=== PATIENT | male | born 1935 | race Caucasian/White ===

== ENCOUNTER 2020-04-09 13:40 | Outpatient (CLI) | payer MEDICARE, SELFPAY ==
[2020-04-09 14:42] LABS: Basophils Percent Auto 0.3 % (0.2-1.2); Eosinophils Absolute Auto 0.1 K/mm3 (0-0.3); Eosinophils Percent Auto 0.8 % (0-4.4); Hematocrit 45.9 % (42.0-52.0); Hemoglobin 15.7 g/dL (14.0-18.0); Immature Granulocyte Absolute 0.06 K/mm3 (0.00-0.031); Immature Granulocyte Percent A 0.6 % (0-0.5); Lymphocytes Absolute Auto 1.84 K/mm3 (0.9-3.2); Lymphocytes Percent Auto 18.9 % (18.3-44.2); Mean Corpuscular HGB Conc 34.2 g/dl (32-36); Mean Corpuscular Volume 93.7 fl (80-100); Mean Platelet Volume 10.8 fl (7.4-10.4); Monocytes Absolute Auto 0.9 K/mm3 (0.1-0.6); Neutrophils Absolute Auto 6.8 K/mm3 (1.3-6.7); Neutrophils Percent Auto 70.4 % (45.5-73.1); Platelet Count Result 246 k/mm3 (150-375); Red Cell Distribution Width 14.1 % (11.5-14.5); White Blood Count 9.7 K/mm3 (4.5-10.0)
[2020-04-09 14:52] LABS: Hemoglobin A1C 5.8 % (<5.7)
[2020-04-09 14:56] LABS: Blood Urea Nitrogen 30 mg/dL (9-20); Calcium 10.1 mg/dL (8.4-10.2); Carbon Dioxide 27 mmol/L (22-30); Chloride 103 mmol/L (98-107); Cholesterol 137 mg/dL (0-200); Estimated Glomerular Filt Rate 39; Glucose 122 mg/dL (75-110); HDL Direct 31 mg/dL; Potassium 4.1 mmol/L (3.4-5.0); Sodium 140 mmol/L (137-145); Triglycerides 132 mg/dL (<150); Uric Acid 6.2 mg/dL (3.5-8.5)
[2020-04-09 15:40] LABS: LDL Cholesterol Direct 81 mg/dL
[2020-04-13 08:52] LABS: Vitamin D 1,25 (OH)2 Total 32 pg/mL (18-72); Vitamin D2 1,25 (OH)2 <8 pg/mL; Vitamin D3 1,25 (OH)2 32 pg/mL
== END 2020-04-09 13:41 | disposition home or self-care (01) ==
PROVIDERS: PCP Internal Medicine; Visit Provider Internal Medicine
DX: R73.09 Other abnormal glucose (principal); E78.2 Mixed hyperlipidemia; I10 Essential (primary) hypertension; E55.9 Vitamin D deficiency, unspecified
CPT/HCPCS: 36415; 80048; 80061; 82652; 83036; 84550; 85025

== ENCOUNTER 2020-05-05 07:42 | Outpatient (CLI) | payer MEDICARE, SELFPAY | END 2020-05-05 07:43 | disposition home or self-care (01) | LOC: ANHAUDIO 07:44 | PROVIDERS: PCP Internal Medicine; Visit Provider Internal Medicine | DX: H90.3 Sensorineural hearing loss, bilateral (principal) | CPT/HCPCS: 92557; 92567 ==

== ENCOUNTER 2020-05-11 07:49 | Outpatient (RCR) | payer SELFPAY | END 2020-05-11 23:59 | disposition home or self-care (01) | LOC: ANHAUDIO 07:49 | PROVIDERS: PCP Internal Medicine; Visit Provider Internal Medicine | DX: Z46.1 Encounter for fitting and adjustment of hearing aid (principal) | CPT/HCPCS: V5261 ==

== ENCOUNTER 2020-07-08 07:59 | Outpatient (CLI) | payer MEDICARE, SELFPAY ==
--- NOTE | ~2020-07-08 | US_ITS ---
EXAMINATION: US art doppler w charles CENTENO DATE: 07/08/2020 09:03 INDICATION: Peripheral vascular disease with hypertension, hypercholesterolemia, prior smoking and pr ior stroke. TECHNIQUE: Segmental pressures and plethysmographic and Doppler waveforms of the brachial and lower e xtremity arteries were obtained. COMPARISON: None. FINDINGS: Right and left brachial artery pressures of 121 mm Hg and 120 mm Hg, respectively, are concordant (no rmal difference <= 30 mmHg). The right high-thigh pressure index is 1.43 (normal > 1.2). The left hig h thigh pressure index was unable to be obtained due to inability to occlude the vessels throughout t he left lower limb. The right ankle-brachial index (CLAIR) was unable to be obtained due to inability to occlude the vessel s at the ankle (normal >= 0.9-1). The right great toe-brachial index (TBI) is 1.07 (normal >= 0.6-0.8 ). Arterial waveforms are biphasic at the right dorsalis pedis artery and triphasic at the remaining arteries in the right lower limb with brisk systolic upstrokes throughout. The left CLAIR was also unable to be obtained due to inability to occlude the vessels. The left TBI is 0.73. Arterial waveforms are monophasic at the left dorsalis pedis artery and triphasic at the remain ing arteries with brisk systolic upstrokes throughout. IMPRESSION: 1. Normal TBIs bilaterally. No significant arterial occlusive disease. Reviewed, dictated and finalized at location A.
== END 2020-07-08 08:00 | disposition home or self-care (01) ==
PROVIDERS: PCP Internal Medicine; Visit Provider Internal Medicine
DX: I73.9 Peripheral vascular disease, unspecified (principal)
CPT/HCPCS: 93923

== ENCOUNTER 2020-07-31 10:22 | Inpatient (IN) | payer MEDICARE, SELFPAY ==
[2020-07-31] VITALS (10 sets, daily range): BP systolic 122–159; BP diastolic 60–88; PULSE 82–109; RESP 12–23; TEMP 36.1–36.6; O2SAT 89–100; BMI 32.3
--- NOTE | ~2020-07-31 | MR_ITS ---
EXAMINATION: MR brain/brain stem wo con DATE: 07/31/2020 15:05 INDICATION: Speech deficit. Stroke. TECHNIQUE: Magnetic resonance imaging (MRI) of the brain and brainstem was performed without intraven ous contrast. Sequences included sagittal and axial T1-weighted FSE, axial diffusion-weighted FS EPI, axial T2*-weighted GRE, axial T2-weighted FLAIR Propeller, and axial T2-weighted Propeller. Apparent diffusion coefficient (ADC) maps were created. COMPARISON: Head CT 07/31/2020, brain MRI 11/03/2019 FINDINGS: There is a small acute infarct in left frontoparietal region. There is no intracranial hemo rrhage or abnormal mass lesion. There are small old infarcts in the cerebellum bilaterally. There is a prominent perivascular space in the right lentiform nucleus. There is a small old infarct in left f rontoparietal region. There are scattered areas of nonspecific increased T2-weighted signal intensity in the cerebral white matter. The ventricles are normal in size. There is mild mucosal thickening in the paranasal sinuses. There are likely changes of ocular lens replacement surgeries. There is anter oposterior elongation of the ocular globes. The mastoid air cells are normal. IMPRESSION: 1. Small acute infarct in left frontoparietal region. 2. Old infarcts in the cerebellum and left frontoparietal region. 3. Mild nonspecific cerebral white matter disease, which likely represents chronic small vessel ische foster disease. Reviewed, dictated and finalized at location A. IMPRESSION: 1. Small acute infarct in left frontoparietal region. 2. Old infarcts in the cerebellum and left frontoparietal region. 3. Mild nonspecific cerebral white matter disease, which likely represents licensed clinical psychologist luis manuel small vessel ischemic disease.
--- NOTE | ~2020-07-31 | US_ITS ---
EXAMINATION: US carotid duplex BI DATE: 07/31/2020 14:05 INDICATION: Right facial weakness. Slurred speech. TECHNIQUE: Grayscale, color Doppler, and pulsed Doppler images of the cervical carotid arteries were obtained. The degree of vessel stenosis is placed in one of the following categories: normal, <50%, 5 0-69%, >=70% but less than near-occlusion, near-occlusion, or total occlusion. Note that percent sten osis relative to normal distal artery lumen diameter is indirectly measured from velocity measurement s as described by Sukhdev, et al. Radiology 2003; 229:340-346. COMPARISON: Ultrasound 11/03/2019 FINDINGS: RIGHT: The right common carotid artery (CCA) peak systolic velocity (PSV) is 64 cm/s. The right internal car otid artery (ICA) PSV is 113 cm/s. The right ICA end-diastolic velocity (EDV) is 21 cm/s. The right I CA/CCA PSV ratio is 1.8. Grayscale and color Doppler images yield an estimate of <50% diameter reduct ion from plaque in the ICA. There is antegrade flow in the right vertebral artery. LEFT: The left CCA PSV is 68 cm/s. The left ICA PSV is 65 cm/s. The left ICA EDV is 16 cm/s. The left ICA/C CA PSV ratio is 0.9. Grayscale and color Doppler images yield an estimate of <50% diameter reduction from plaque in the ICA. There is antegrade flow in the left vertebral artery. IMPRESSION: 1. <50% stenosis in the right internal carotid artery. 2. <50% stenosis in the left internal carotid artery. Reviewed, dictated and finalized at location A.
--- NOTE | ~2020-07-31 | CT_ITS ---
EXAMINATION: CT brain wo con DATE: 07/31/2020 11:19 INDICATION: Slurred speech TECHNIQUE: Computed tomography (CT) of the head was performed without intravenous contrast. The mA wa s adjusted according to patient size. Iterative reconstruction technique was employed. Exam dose: 60 5.33 mGy-cm total exam DLP. COMPARISON: 11/03/2019 MRI brain/brainstem 11/02/2019 CT brain FINDINGS: Calcified cerebral atherosclerosis including right vertebral basilar and both internal olivas tid arteries. There is a small infarct high over the left parietal convexity, likely a chronic small watershed infa rct. This is a new finding since 11/02/2019. There is nonspecific diminished attenuation of the cerebral white matter, likely due to chronic small vessel ischemic changes. Chronic right basal ganglia lacunar infarct. Old left cerebellar infarct. No intracranial mass lesion or hemorrhage, midline shift or mass effect. No subdural or epidural yamileth kasandra. There is moderate cerebral and cerebellar atrophy. No orbital mass lesion. The mastoid air cells and included paranasal sinuses are normally developed a nd aerated. No fracture or bone destruction of the cranial vault. IMPRESSION: Cerebral atherosclerosis and chronic small vessel ischemic changes of the cerebral white matter Right chronic basal ganglia lacunar infarct Small chronic infarct high over the left parietal convexity, new since 11/02/2019 Old left cerebellar infarct Reviewed, dictated and finalized at Location A. Reviewed, dictated and finalized at location A. IMPRESSION: Cerebral atherosclerosis and chronic small vessel ischemic changes of the cerebral white matter Right chronic basal ganglia lacunar infarct Small chronic infarct high over the left parietal convexity, new since 11/02/20 19 Old left cerebellar infarct
--- NOTE | 2020-07-31 10:37 | ECG_ITS ---
Measurements Intervals [place] Rate: 95 P: [place]: 0 QRS: -42 QRSD: 82 T: 6 QT: 314 QTc: 396 Interpretive Statements ATRIAL FIBRILLATION CANNOT RULE OUT SEPTAL INFARCT, AGE INDETERMINATE INFERIOR INFARCT, AGE INDETERMINATE BASELINE ARTIFACT- I, II, III, AVR, AVL, AVF ABNORMAL ECG Electronically Signed On 07-31-2020 14:07:44 CDT by Rl Lowry D.O.
[2020-07-31 10:48] LABS: Basophils Percent Auto 0.3 % (0.2-1.2); Eosinophils Absolute Auto 0.1 K/mm3 (0-0.3); Eosinophils Percent Auto 1.3 % (0-4.4); Hemoglobin 15.2 g/dL (14.0-18.0); Immature Granulocyte Absolute 0.05 K/mm3 (0.00-0.031); Immature Granulocyte Percent A 0.5 % (0-0.5); Lymphocytes Absolute Auto 2.48 K/mm3 (0.9-3.2); Lymphocytes Percent Auto 25.2 % (18.3-44.2); Mean Corpuscular HGB Conc 34.5 g/dl (32-36); Mean Corpuscular Hemoglobin 33.8 pg (26-34); Mean Corpuscular Volume 97.8 fl (80-100); Mean Platelet Volume 10.1 fl (7.4-10.4); Monocytes Absolute Auto 1.3 K/mm3 (0.1-0.6); Monocytes Percent Auto 13.3 % (2.6-8.5); Neutrophils Absolute Auto 5.9 K/mm3 (1.3-6.7); Neutrophils Percent Auto 59.4 % (45.5-73.1); Platelet Count Result 260 k/mm3 (150-375); Red Cell Distribution Width 13.5 % (11.5-14.5); White Blood Count 9.9 K/mm3 (4.5-10.0)
--- NOTE | 2020-07-31 10:48 | ED.NEUROSD ---
HPI - Neuro Symptoms/Deficit General Chief Complaint: Suspected CVA Stated Complaint: r/o Stroke Time Seen by Provider: 07/31/20 10:29 Source: patient History of Present Illness HPI Narrative: Patient is a 84 y/o male complaining speech difficulty and right facial droop since approximately 9:30 AM. He states that he noticed he could not talk at about 9:30 AM. His symptoms are improving spontaneously. He states that he can talk currently, but still feels right face is swollen. He states that he had history of previous stroke. He is currently on Pradaxa for A fib. He took his last dose this morning. Related Data Home Medications Medication Instructions Recorded Confirmed cholecalciferol (vitamin D3) 125 125 mcg PO DAILY 07/21/20 07/21/20 mcg (5,000 unit) capsule atorvastatin 10 mg PO HS 07/31/20 07/31/20 brinzolamide-brimonidine 1 drp OPHTHALMIC (EYE) BID 07/31/20 07/31/20 [Simbrinza] colchicine 0.3 mg PO EVERY OTHER DAY 07/31/20 07/31/20 krill oil 500 mg PO DAILY 07/31/20 07/31/20 spironolactone 50 mg PO HS 07/31/20 07/31/20 Allergies Allergy/AdvReac Type Severity Reaction Status Date / Time Penicillins Allergy Severe Anaphylaxis Verified 07/31/20 10:43 Review of Systems Constitutional: Constitutional: Denies chills, Denies fever(s), Denies headache(s) and Denies weakness Eyes: Eyes: Denies blurry vision ENT: Denies headache(s) and Denies neck pain Cardiovascular: Cardiovascular: Denies chest pain and Denies dyspnea Respiratory: Respiratory: Denies cough and Denies dyspnea Gastrointestinal: Gastrointestinal: Denies abdominal pain, Denies diarrhea, Denies nausea and Denies vomiting Genitourinary: Genitourinary: Denies hematuria and Denies dysuria Musculoskeletal: Musculoskeletal: Denies back pain and Denies neck pain Neurologic: Reports Abnormal speech present, Denies headache(s) and Denies weakness [facility] Past Medical History Medical History Abnormal ankle brachial index (CLAIR) Afib Chronic rate-controlled atrial fibrillation on Pradaxa for chronic anticoagulation. Arthritis Asthma BMI 31.0-31.9,adult BMI 33.0-33.9,adult BPH (benign prostatic hyperplasia) CHF (congestive heart failure) Cholecystitis CKD (chronic kidney disease) COPD (chronic obstructive pulmonary disease) Diastolic dysfunction Diverticulitis Diverticulitis with perforation and abscess in 2007 that was treated with percutaneous abscess drainage and antibiotics. No history of colon resection. Elevated glucose Encounter for Medicare annual wellness exam Encounter for routine adult health examination without abnormal findings GI bleed Glaucoma Gout Hearing loss HLD (hyperlipidemia) HTN (hypertension) Hyperlipidemia MVP (mitral valve prolapse) On skilled nursing drug therapy Peripheral neuropathy Pneumonia Right knee meniscal tear Vitamin D deficiency Surgical History Surgical History H/O bilateral cataract extraction History of cardiac catheterization Without intervention. Hx of appendectomy Laparoscopic appendectomy in 2009. Hx of tonsillectomy Status post laparoscopic cholecystectomy 10/30/[address] Saravia Family History Family History Mother Family history of cardiovascular disease Family history of heart disease in male family member before age 55 Father Cerebrovascular accident Family history of Alzheimer's disease Social History Social History Social History: Patient is a full code. He does live with his . Smoking packs per day: 1 Smoking cigarettes per day: 20.0 Years smoked: 10 Smoking pack-years: 10.00 Smoking status: Former smoker Tobacco type: cigarettes Second hand tobacco smoke exposure: Yes Smoking end date: 11/12/05 Alcohol intake: never Substance use: never Subst
[2020-07-31 11:00] LABS: Alanine Aminotransferase 17 U/L (4-50); Albumin Level 4.3 g/dL (3.5-5.1); Alkaline Phosphatase 66 U/L (38-126); Anion Gap 9 mmol/L (8-16); Aspartate Amino Transferase 23 U/L (17-59); Bilirubin,Total 0.9 mg/dL (0.2-1.3); Blood Urea Nitrogen 22 mg/dL (9-20); Calcium 9.8 mg/dL (8.4-10.2); Carbon Dioxide 27 mmol/L (22-30); Chloride 102 mmol/L (98-107); Estimated CRCL calculation 34 ml/min; Estimated Glomerular Filt Rate 41; Glucose 110 mg/dL (75-110); Sodium 138 mmol/L (137-145)
[2020-07-31 11:01] LABS: INR 1.4; Prothrombin Time 16.4 Seconds (11.1-14.7)
--- NOTE | 2020-07-31 11:13 | PC.NURSE ---
Pt taken to CT scan at this time
--- NOTE | 2020-07-31 14:22 | ADMGEN ---
This patient, Gigi Richardson, was admitted to 2 Medical Room 244-. Patient/family oriented to hospital policies and general routines including ID bracelet, bed and alarms, visiting hours, pain management, procedures, bathroom and other care routines, personal items, smoking policy, room service/diet, and visiting hours. Valuables list has been completed. Information on how to activate the Rapid Response Team has been discussed. Patient/Family are encouraged to report perceived risks to care and to ask questions if they do not understand what they are told or what they should do.
--- NOTE | 2020-07-31 16:30 | PM.IMHP ---
H&P: HPI History of Present Illness Date/Time: 07/31/20 16:30 Chief complaint: Stroke symptoms. Narrative: Gigi Richardson is a very pleasant 84-year-old male with history of stroke, chronic atrial fibrillation on long-term anticoagulation with dabigatran, diastolic congestive heart failure, chronic kidney disease, hypertension, and COPD who presented to the emergency department earlier today via private vehicle from home for evaluation of stroke-like symptoms. He was in his usual state health this morning when he woke at approximately 07:00. 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 At approximately 09:30, he noticed that the right side of his tongue and upper jaw area was numb ?like I had Novocain? and when he began to talk to his she noticed that his speech was slurred, garbled, and he was having difficulties with word recall. He has a history of stroke in October 2019, presenting with speech deficits and right-sided weakness, which has nearly resolved except for some mild right lower leg weakness. Just prior to that stroke he was in hospital for acute cholecystitis and had been off of his Pradaxa for several days in anticipation of surgery. His workup was essentially unremarkable including carotid Doppler ultrasound showing less than 50% stenosis bilaterally, and I believe his stroke was attributed to having been off the Pradaxa. Brain MRI today confirms a new, small acute infarct in the left frontoparietal region and also shows evidence of another stroke that was not present on MRI in October 2019, but he does not recall having any neurologic symptoms since that time, prior to today. With further questioning, he states 100% compliance with his dabigatran and is pretty consistent taking it every 12 hours. He has not missed any doses to his knowledge. At the time my evaluation he is eating dinner, is having conversations with his , and seems to be near his baseline. The numb like sensation in his tongue and mouth seemed to be improving as well as his speech. He denies vertigo, auditory and visual changes, and focal weakness. Review of Systems Review of Systems: Narrative: Twelve systems were reviewed with pertinent positives and negatives as per HPI. No fever, chills, or sweats. No recent cold or flu symptoms. He denies nausea, vomiting, and diarrhea. He ambulates with a cane, mainly due to right knee pain (he sees Dr. Marie almost every 6 months for cortisone injections) and mild weakness from previous stroke. Recently treated for gout. Except as documented, all other systems were reviewed and are negative. [facility] Past Medical History Medical History (Updated 07/31/20 @ 19:32 by Noa Carl PA-C) Arthritis Benign prostatic hyperplasia Chronic kidney disease, stage 3 Baseline creatinine is around 1.60. Chronic obstructive pulmonary disease PFTs in June 2011 demonstrated mild obstructive ventilatory defect with acute bronchodilator response. Current use of half-way anticoagulation On dabigatran for stroke prophylaxis. Had previously been on warfarin. Diastolic dysfunction Echocardiogram in February 2019 demonstrated mild enlargement of the left ventricular cavity, ejection fraction of 55%, diastolic dysfunction, sigmoid hypertrophy of the septum, severe enlargement of the left atrium and mild enlargement of the right atrium, and [id number] mitral valve regurgitation. Diverticulitis (~2007) Diverticulitis with perforation and abscess treated with percutaneous abscess drainage and antibiotics. 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 Glaucoma Gout Hearing loss Hyperlipidemia Peripheral neuropathy Persistent atrial fibrillation Pneumonia Vitamin D deficiency Surgical History Surgical History (Updated 07/31/20
--- NOTE | 2020-07-31 20:00 | PM.CNCAR ---
Assessment and Plan Assessment and plan (1) Essential hypertension: Code(s): I10 - Essential (primary) hypertension Status: Acute Assessment and Plan: Stable. (2) Diastolic dysfunction: Code(s): I51.89 - Other ill-defined heart diseases Status: Acute Assessment and Plan: Stable. (3) Chronic obstructive pulmonary disease: Code(s): J44.9 - Chronic obstructive pulmonary disease, unspecified Status: Acute (4) Chronic kidney disease, stage 3: Code(s): N18.3 - Chronic kidney disease, stage 3 (moderate) Status: Acute (5) Persistent atrial fibrillation: Code(s): I48.19 - Other persistent atrial fibrillation Status: Acute Assessment and Plan: On Pradax. Rate controlled. (6) Acute cerebrovascular accident: Code(s): I63.9 - Cerebral infarction, unspecified Status: Acute Assessment and Plan: Could be failure of Pradaxa or due to cerebral small vessel ischemic disease. Discussed with patient extensively about further workup and he is agreeable to [facility] on Sunday to determine if failure of Pradaxa if we see left atrial appendage thrombus or spontaneous contrast. However, if we do not, then we do not know definitively if it is a failure of Pradaxa, and may consider starting aspirin EC 81 mg daily. Resume all home cardiac medications. History of Present Illness History of Present Illness Consult date/time: 07/31/20 20:00 Reason for consult: Stroke with atrial fib. 84 yr old man presents to ED for stroke like symptoms. He has a history of stroke where he had aphasia and right leg weakness in October 2019 2 days after having emergent gallbladder surgery when he was off his Pradaxa; chronic atrial fib since he was in his 30's, hypertension, dyslipidemia, diastolic dysfunction, COPD/asthma, CKD stage III. Reports that this morning while at home he noted the side of his mouth was tingling. It lasted several hours and has resolved. MRI brain today showed small acute frontoparietal infarct, old infarct of cerbebellum and left frontoparietal lobes, and small vessel ischemic disease. Carotid duplex is unremarkable. EKG shows atrial fib. He can walk with his cane about 200 feet and limited by fatigue. Denies chest pain, sob, orthopnea, PND, edema, dizziness. Reason For Visit: Stroke symptoms. Review of Systems Review of Systems: All systems reviewed & are unremarkable except as noted in HPI and below Constitutional: Constitutional: Reports as per HPI and Denies chills Cardiovascular: Cardiovascular: Reports as per HPI, Denies chest pain, Denies leg edema and Denies lightheadedness Respiratory: Respiratory: Reports as per HPI and Denies dyspnea Gastrointestinal: Gastrointestinal: Reports as per HPI and Denies abdominal pain Genitourinary: Genitourinary: Reports as per HPI and Denies dysuria Musculoskeletal: Musculoskeletal: Reports as per HPI Neurologic: Reports as per HPI and Denies confusion [facility], [facility] Past Medical History Medical History (Updated 07/31/20 @ 19:32 by Noa Carl PA-C) Arthritis Benign prostatic hyperplasia Chronic kidney disease, stage 3 Baseline creatinine is around 1.60. Chronic obstructive pulmonary disease PFTs in June 2011 demonstrated mild obstructive ventilatory defect with acute bronchodilator response. Current use of intermediate frame tender anticoagulation On dabigatran for stroke prophylaxis. Had previously been on warfarin. Diastolic dysfunction Echocardiogram in February 2019 demonstrated mild enlargement of the left ventricular cavity, ejection fraction of 55%, diastolic dysfunction, sigmoid hypertrophy of the septum, severe enlargement of the left atrium and mild enlargement of the right atrium, and [id number] mitral valve regurgitation. Diverticulitis (~2007) Diverticulitis with perforation and abscess treated with percutaneous abscess drainage and antibiotics. Essential hypertension GI bleed (~
[2020-07-31] MEDS: allopurinoL 100 MG TABLET PO (20:32)
[2020-07-31] MEDS: BRINZOLAMIDE 1% OPHTH SUSP 10 ML 1 DROP EACH EYE (20:33)
[2020-07-31] MEDS: BRIMONIDINE TARTRATE 0.2% OP SOLN 5 ML BTL 1 DROP EACH EYE (20:33)
[2020-07-31] MEDS: ATORVASTATIN 10 MG TABLET PO (20:33)
[2020-07-31] MEDS: CHOLECALCIFEROL 1,000 UNITS TABLET 5000 UNITS PO (20:36)
[2020-07-31] MEDS: SPIRONOLACTONE 50 MG TABLET PO (20:36)
[2020-07-31] MEDS: MONTELUKAST SODIUM 10 MG TABLET PO (20:36)
[2020-08-01] VITALS (9 sets, daily range): BP systolic 126–143; BP diastolic 62–88; PULSE 78–97; RESP 16–18; TEMP 36.3–36.4; O2SAT 96–97
[2020-08-01] MEDS: BRINZOLAMIDE 1% OPHTH SUSP 10 ML 1 DROP EACH EYE ×2 (08:36→20:02)
[2020-08-01] MEDS: BRIMONIDINE TARTRATE 0.2% OP SOLN 5 ML BTL 1 DROP EACH EYE ×2 (08:36→20:01)
[2020-08-01] MEDS: METOPROLOL SUCCINATE EXT REL 25 MG TABCR PO (08:38)
[2020-08-01] MEDS: allopurinoL 100 MG TABLET PO ×2 (08:38→20:01)
[2020-08-01] MEDS: FINASTERIDE 5 MG TABLET PO (08:38)
[2020-08-01] MEDS: PANTOPRAZOLE 40 MG TABLET PO (08:38)
[2020-08-01] MEDS: FUROSEMIDE 20 MG TABLET PO (08:38)
[2020-08-01] MEDS: CHOLECALCIFEROL 1,000 UNITS TABLET 5000 UNITS PO ×2 (08:38→20:01)
[2020-08-01] MEDS: DABIGATRAN ETEXILATE 150 MG CAPSULE PO ×2 (08:38→20:01)
--- NOTE | 2020-08-01 09:13 | PM.PNCARD ---
Progress Note: A&P Assessment and Plan (1) Essential hypertension: Code(s): I10 - Essential (primary) hypertension Status: Acute Assessment and Plan: Stable. (2) Diastolic dysfunction: Code(s): I51.89 - Other ill-defined heart diseases Status: Acute Assessment and Plan: Stable. (3) Chronic obstructive pulmonary disease: Code(s): J44.9 - Chronic obstructive pulmonary disease, unspecified Status: Acute (4) Chronic kidney disease, stage 3: Code(s): N18.3 - Chronic kidney disease, stage 3 (moderate) Status: Acute (5) Persistent atrial fibrillation: Code(s): I48.19 - Other persistent atrial fibrillation Status: Acute Assessment and Plan: Could be failure of Pradaxa or due to cerebral small vessel ischemic disease. Discussed with patient extensively about further workup and he is agreeable to [facility] on Sunday to determine if failure of Pradaxa if we see left atrial appendage thrombus or spontaneous contrast. However, if we do not, then we do not know definitively if it is a failure of Pradaxa, and may consider starting aspirin EC 81 mg daily. Obtain [facility] tomorrow AM. (6) Acute cerebrovascular accident: Code(s): I63.9 - Cerebral infarction, unspecified Status: Acute Subjective Date/time seen: 08/01/20 09:13 Denies any more tingling or numbness in perioral region. No chest pain or sob. Exam Const: General: comfortable and no acute distress Neck: Neck: no JVD Carotids: no bruits Resp: Auscultation: no crackles, no rales, no rhonchi and no wheezes Other: Coarse breath sounds bilaterally Cardio: Rate: regular rate Rhythm: abnormal rhythm Heart sounds: no murmurs Peripheral pulses: dorsalis pedis present GI: GI Palp: Yes abdominal tenderness and Yes Soft to palpation Neuro: General: oriented to person, oriented to place and oriented to time Extrem: Right upper extremity: no edema Left upper extremity: no edema Objective Data Vital Signs Vital Signs: Vital Signs - 24 hr 07/31/20 10:30 07/31/20 10:32 07/31/20 10:36 Temperature 97.6 F Pulse Rate 97 109 H 103 H Respiratory Rate 18 21 H 23 H Blood Pressure 149/83 H 159/83 H 159/83 H Pulse Oximetry 98 90 93 07/31/20 10:46 07/31/20 11:00 07/31/20 11:45 Temperature Pulse Rate 93 89 85 Respiratory Rate 15 15 12 Blood Pressure 128/88 129/76 122/74 Pulse Oximetry 93 89 L 96 07/31/20 13:24 07/31/20 14:30 07/31/20 20:07 Temperature 97.0 F L Pulse Rate 91 82 94 Respiratory Rate 16 20 Blood Pressure 126/81 129/69 Pulse Oximetry 97 98 07/31/20 22:00 08/01/20 00:00 08/01/20 04:00 Temperature 97.9 F Pulse Rate 92 81 78 Respiratory Rate 16 Blood Pressure 152/60 H Pulse Oximetry 100 08/01/20 06:00 Temperature 97.4 F L Pulse Rate 89 Respiratory Rate 18 Blood Pressure 138/62 Pulse Oximetry 97 Intake/Output Intake/Output: Intake & Output 07/29/20 07/30/20 07/31/20 08/01/20 23:59 23:59 23:59 23:59 Intake Total 580 300 Output Total 450 Balance 580 -150 Meds/Results Medications: Active Medications Generic Name Dose Route Start Last Admin Trade Name Laendroq PRN Reason Stop Dose Admin Allopurinol 100 mg 07/31/20 21:00 08/01/20 08:38 Zyloprim PO 100 mg Q12HR ANGELINA Administration Atorvastatin Calcium 10 mg 07/31/20 21:00 07/31/20 20:33 Lipitor PO 10 mg HS ANGELINA Administration Brimonidine Tartrate 1 drop 07/31/20 21:00 08/01/20 08:36 Alphagan 0.2% Op Soln EACH EYE 1 drop Q12HR ANGELINA Administration Brinzolamide 1 drop 07/31/20 21:00 08/01/20 08:36 Azopt Ophth Nellie EACH EYE 1 drop Q12HR ANGELINA Administration Colchicine 0.3 mg 08/02/20 09:00 Colchicine Po PO Q48H ANGELINA Dabigatran 150 mg 08/01/20 09:00 08/01/20 08:38 Pradaxa PO 150 mg Q12HR ANGELINA Administration Finasteride 5 mg 08/01/20 09:00 08/01/20 08:38 Proscar PO 5 mg DAILY ANGELINA Administration Fu
--- NOTE | 2020-08-01 15:25 | PM.IMPN ---
Progress Note: A&P Assessment and Plan (1) Acute cerebrovascular accident: Code(s): I63.9 - Cerebral infarction, unspecified Status: Acute Assessment and Plan: Evident on brain MRI. Etiology suspected to be cardioembolic in etiology given his longstanding, persistent atrial fibrillation, although patient states he is compliant with a/c. Other etiology possible due to chronic small vessel disease. Initiating aspirin has been held at this time given HAS-BLED score of 5; CHADS2-VASc score is 6. Dr. Lowry and Dr. Abreu following and appreciate recommendations. Possible failure of Pradaxa Patient to have RICHMOND per Dr. Lowry rec to assess left atrial appendage thrombus Will await further recommendations from Neurology and Cardiology Monitor (2) Persistent atrial fibrillation: Code(s): I48.19 - Other persistent atrial fibrillation Status: Acute Assessment and Plan: Rate controlled. 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 Cr 1.60 yesterday (5) Chronic obstructive pulmonary disease: Code(s): J44.9 - Chronic obstructive pulmonary disease, unspecified Status: Acute Assessment and Plan: No acute issues. Breathing comfortably on RA Resume home medications Monitor (6) Diastolic dysfunction: Code(s): I51.89 - Other ill-defined heart diseases Status: Acute Assessment and Plan: Clinically compensated. No acute issues Continue home medications (7) Essential hypertension: Code(s): I10 - Essential (primary) hypertension Status: Acute Assessment and Plan: BP well controlled at 120s-130s sys today continue home antihypertensives for now Monitor Subjective Date/time seen: 08/01/20 15:25 Interval history: Patient is a 84 yo M with history of stroke, chronic atrial fibrillation on long-term anticoagulation with dabigatran, diastolic congestive heart failure, chronic kidney disease, hypertension, and COPD who is seen in follow up for acute CVA evident on brain MRI this hospital stay; small infarct in left frontoparietal region. Patient states he feels better today. Notes that his neurological symptoms resolved yesterday. No other complaints at the moment. Denies f/c/s, myalgias/arthralgias, headaches, dizziness, lightheadedness, changes in v/h, cp/palpitations, sob/cough, n/v/d/c, abd pain, changes in BMs, dysuria, hematuria, cloudy urine, calf pain/swelling. Review of Systems Review of Systems: All systems reviewed & are unremarkable except as noted in HPI and below Exam Narrative: Exam Narrative: General: Patient resting supine in bed in no acute distress. in room visiting HEENT: Normocephalic, EOMI, oral mucosa moist. Cardiovascular: Normal rate; irregularly irregular rhythm. No notable murmur, rub, or gallop. Respiratory: Lungs clear to auscultation all bishop. Non-labored breathing. Abdomen: Soft, non-tender, non-distended, bowel sounds present. Extremities: Peripheral pulses intact. No edema. Neuro: No focal neurological deficits. Speech is clear. 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 no nystagmus. CN II-XII intact. heel to chou normal. Rapid alternating moves normal Objective
--- NOTE | 2020-08-01 15:55 | PHAR ---
HOME MEDICATION VERIFIED BY PHARMACY: SIMEON ELLIPTA 100 MCG/62.5 MCG/25 MCG INHALER
--- NOTE | 2020-08-01 16:11 | WPDNEURCNPN ---
Assessment and Plan Assessment and plan (1) Essential hypertension: Code(s): I10 - Essential (primary) hypertension Status: Acute (2) Diastolic dysfunction: Code(s): I51.89 - Other ill-defined heart diseases Status: Acute (3) Chronic obstructive pulmonary disease: Code(s): J44.9 - Chronic obstructive pulmonary disease, unspecified Status: Acute (4) Chronic kidney disease, stage 3: Code(s): N18.3 - Chronic kidney disease, stage 3 (moderate) Status: Acute (5) Current use of shelter anticoagulation: Code(s): Z79.01 - shelter (current) use of anticoagulants Status: Acute (6) Persistent atrial fibrillation: Code(s): I48.19 - Other persistent atrial fibrillation Status: Acute (7) Acute cerebrovascular accident: Code(s): I63.9 - Cerebral infarction, unspecified Status: Acute Additional Plan we shall continue the present medical management and depending upon the RICHMOND further recommendations will be coming from the core maker helper and we will review that also I had discussed with him the different alternatives of Pradaxa and the addition of the aspirin both yesterday and today which it seems like core maker helper is in agreement Consult date: 08/01/20 Time Seen: 16:00 HPI: Gigi Richardson is a 84 year old male was examined yesterday and today in detail this is a cumulative note of yesterday's examination and today's examination the patient does have underlying atrial fibrillation and was admitted because of stroke-like symptoms and the initial examination revealed him to have a decreased dexterity of the right hand in particular and speech defect which is resolving and in fact is resolving yesterday and today is definitely much better denies any headache nausea vomiting chest pain shortness of breath fever chills sore throat the patient MRI does reveal evidence of a new ischemic stroke on the left side which is responsible for significantly improving is speech defect and also improving right-sided deficit he has been seen by the core maker helper and his going to have RICHMOND performed tomorrow overall significant improvement between the 2 examinations performed yesterday and today Review of Systems Review of Systems: All systems reviewed & are unremarkable except as noted in HPI and below PMFSH Past Medical History Medical History Arthritis Benign prostatic hyperplasia Chronic kidney disease, stage 3 Baseline creatinine is around 1.60. Chronic obstructive pulmonary disease PFTs in June 2011 demonstrated mild obstructive ventilatory defect with acute bronchodilator response. Current use of shelter anticoagulation On dabigatran for stroke prophylaxis. Had previously been on warfarin. Diastolic dysfunction Echocardiogram in February 2019 demonstrated mild enlargement of the left ventricular cavity, ejection fraction of 55%, diastolic dysfunction, sigmoid hypertrophy of the septum, severe enlargement of the left atrium and mild enlargement of the right atrium, and [id number] mitral valve regurgitation. Diverticulitis (~2007) Diverticulitis with perforation and abscess treated with percutaneous abscess drainage and antibiotics. 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 Glaucoma Gout Hearing loss Hyperlipidemia Peripheral neuropathy Persistent atrial fibrillation Pneumonia Vitamin D deficiency Surgical History Surgical History History of bilateral cataract extraction History of cardiac catheterization Without intervention. History of laparoscopic appendectomy (~2009) History of laparoscopic cholecystectomy (~10/30/19) History of right knee surgery Repair of meniscal tear. History of tonsi
[2020-08-01] MEDS: MONTELUKAST SODIUM 10 MG TABLET PO (20:01)
[2020-08-01] MEDS: ATORVASTATIN 10 MG TABLET PO (20:01)
[2020-08-01] MEDS: SPIRONOLACTONE 50 MG TABLET PO (20:01)
[2020-08-02] VITALS (23 sets, daily range): BP systolic 85–140; BP diastolic 61–105; PULSE 78–103; RESP 12–21; TEMP 36.3–36.5; O2SAT 92–100
[2020-08-02 05:19] LABS: Anion Gap 6 mmol/L (8-16); Blood Urea Nitrogen 27 mg/dL (9-20); Calcium 10.2 mg/dL (8.4-10.2); Carbon Dioxide 29 mmol/L (22-30); Chloride 100 mmol/L (98-107); Estimated CRCL calculation 32 ml/min; Estimated Glomerular Filt Rate 39; Glucose 107 mg/dL (75-110); Magnesium 1.5 mg/dL (1.6-2.3); Potassium 4.2 mmol/L (3.4-5.0); Sodium 135 mmol/L (137-145)
--- NOTE | 2020-08-02 07:45 | ECHO_ITS ---
Patient Info Name: Gigi Richardson Age: 84 years : 1935 Gender: Male Ht: 67 in Wt: 206 lbs BSA: 2.13 m2 HR: 85 bpm BP: 132 / 96 mmHg Heart Rhythm: Atrial Fibrillation Technical Quality: Good Exam Date: 08/02/2020 11:01 AM Exam Location: [facility] Pulmonary Patient Status: Inpatient Admit Date: 08/01/2020 Staff Ordering Physician: Rl Lowry DO Guitar Repairer: Fabian Viveros RDCS Attending Provider: Henri Carey PA-C Referring Physician: Alen SCALES; Exam Type: CA echo transesophageal Study Info Indications 436 - Cerebral Vascular Accident (Stroke) Complete two-dimensional, color flow and Doppler transesophageal study is performed. History/Risk Factors Stroke. Summary 1. Left ventricular chamber dimension is normal. 2. Left ventricular systolic function is normal with an ejection fraction at 60-65% by visual estimation. 3. There is mildly increased left ventricular wall thickness. 4. The left ventricular diastolic function is grade I diastolic dysfunction. 5. E/e' 10 is mildly elevated. 6. Atrial fibrillation. 7. Left atrial chamber dimension is severely enlarged. 8. Left atrial appendage not well seen. Possible thrombus in appendage. Significant spontaneous echo contrast in left atrium. 9. There is mild aortic valve sclerosis. 10. There is mild aortic valve regurgitation. 11. There is mild to moderate mitral valve regurgitation. Left Ventricle E/e' 10 is mildly elevated. Atrial fibrillation. Left ventricular systolic function is normal with an ejection fraction at 60-65% by visual estimation. Left ventricular chamber dimension is normal. There is mildly increased left ventricular wall thickness. The left ventricular diastolic function is grade I diastolic dysfunction. Right Ventricle Right ventricular chamber dimension is normal. Right ventricular systolic function is normal. Left Atria Left atrial chamber dimension is severely enlarged. Right Atria Right atrial chamber dimension is normal. Atrial Appendage Left atrial appendage not well seen. Possible thrombus in appendage. Significant spontaneous echo contrast in left atrium. Aortic Valve The aortic valve is trileaflet. There is mild aortic valve sclerosis. There is no aortic valve stenosis. There is mild aortic valve regurgitation. Pulmonic Valve The pulmonic valve is not well visualized. Mitral Valve There is no mitral valve stenosis. There is mild to moderate mitral valve regurgitation. Tricuspid Valve There is no tricuspid valve regurgitation. Pericardium/Pleural There is no pericardial effusion. Aorta The aortic root size at the sinus of Valsalva is normal. Mitral Valve Name Value Normal MV Doppler MV Decel [place] 393 cm/s2 MV PHT 43 ms MV Area (PHT) 5.1 cm2 4.0-5.0 MV Diastolic Function MV E Peak Velocity 58 cm/s MV A Peak Velocity 16 cm/s MV E/A 3.7 MV Decel Time 149 ms
--- NOTE | 2020-08-02 07:58 | SUR.PHASEII ---
BEGIN PHASE II RECOVERY. RICHMOND W/ DR. MIRAMONTES IN CHUTE FE[facility]ER 5 ABORTED DUE TO INABILITY TO PASS ULTRASOUND PROBE. ARRANGEMENTS MAKE W/ ANESTHESIA TO DO RICHMOND W/ ANESTHESIA IN PACU AT 1100. VSS. DROWSY AT THIS TIME. WILL MONITOR CLOSELY.
--- NOTE | 2020-08-02 09:00 | SUR.PHASEII ---
END PHASE II RECOVERY. RETURNED TO 244 VIA BED. AWAKE AND ALERT. VOICES NO C/O. VSS. ON TELE MONITOR. REPORT HAS BEEN CALLED TO LIDYA CALLAHAN AT 0830. PT. TO HAVE RICHMOND W/ ANESTHESIA AT 1100 W/ DR. MIRAMONTES. PT. AND RN AWARE.
[2020-08-02] MEDS: allopurinoL 100 MG TABLET PO (09:04)
[2020-08-02] MEDS: PANTOPRAZOLE 40 MG TABLET PO (09:05)
[2020-08-02] MEDS: DABIGATRAN ETEXILATE 150 MG CAPSULE PO (09:05)
[2020-08-02] MEDS: METOPROLOL SUCCINATE EXT REL 25 MG TABCR PO (09:05)
[2020-08-02] MEDS: CHOLECALCIFEROL 1,000 UNITS TABLET 5000 UNITS PO (09:05)
[2020-08-02] MEDS: FINASTERIDE 5 MG TABLET PO (09:05)
[2020-08-02] MEDS: FUROSEMIDE 20 MG TABLET PO (09:06)
[2020-08-02] MEDS: MAGNESIUM OXIDE 400 MG TABLET PO ×2 (09:06→18:03)
[2020-08-02] MEDS: COLCHICINE 0.3 MG TABLET PO (09:06)
[2020-08-02] MEDS: BRINZOLAMIDE 1% OPHTH SUSP 10 ML 1 DROP EACH EYE (09:07)
[2020-08-02] MEDS: MAGNESIUM SULF 1 GM/D5W 100 ML 1 GM/100 ML BAG IVPB (09:07)
[2020-08-02] MEDS: BRIMONIDINE TARTRATE 0.2% OP SOLN 5 ML BTL 1 DROP EACH EYE (09:07)
--- NOTE | 2020-08-02 10:58 | WPDANESEPPF ---
Anes - Initial Pre Proc Eval Procedure: Operation Date: 08/02/20 07:45 Proposed Procedures p Trans Esophageal Echo - Rl Lowry, Operation Date: 08/02/20 11:00 Proposed Procedures p Trans Esophageal Echo Batool Lowry, DO Date/Time: 08/02/20 10:58 Surgeon: Henri Carey PA-C Pre Op Diagnosis: Stroke symptoms. Patient Data Age: 84 Gender: M Height: 5 ft 7 in Weight: 93.5 kg Last Vital Signs Temp 36.3 C L 08/02/20 08:00 Pulse 78 08/02/20 09:05 Resp 18 08/02/20 08:45 BP 112/81 08/02/20 08:45 Pulse Ox 93 08/02/20 09:20 Allergies Allergy/AdvReac Type Severity Reaction Status Date / Time Penicillins Allergy Severe Anaphylaxis Verified 07/31/20 10:43 Home Medications Medication Instructions Recorded Confirmed Type allopurinol 100 mg PO BID #60 tablet 11/13/19 07/31/20 Rx lorazepam 0.5 mg PO DAILY PRN #15 tablet 11/13/19 07/31/20 Rx tramadol 50 mg PO QID PRN #50 tablet 11/13/19 07/31/20 Rx fluticasone fur. 100 mcg-umeclid 1 ea INHALATION DAILY #15 ea 04/14/20 07/31/20 Rx 62.5 mcg-vilant 25 mcg inhalat.powder pantoprazole 40 mg tablet,delayed 40 mg PO DAILY #90 tablet 06/09/20 07/31/20 Rx release furosemide 20 mg tablet 20 mg PO DAILY #90 tablet 06/14/20 07/31/20 Rx finasteride 5 mg tablet 5 mg PO DAILY #90 tablet 06/24/20 07/31/20 Rx dabigatran etexilate 150 mg capsule 150 mg PO BID #180 cap 07/14/20 07/31/20 Rx montelukast 10 mg tablet 10 mg PO HS #90 tablet 07/14/20 07/31/20 Rx cholecalciferol (vitamin D3) 125 125 mcg PO BID 07/21/20 07/31/20 History mcg (5,000 unit) capsule metoprolol succinate 25 mg 25 mg PO DAILY #90 tablet 07/27/20 07/31/20 Rx tablet,extended release 24 hr atorvastatin 10 mg PO HS 07/31/20 07/31/20 History brinzolamide-brimonidine 1 drp OPHTHALMIC (EYE) BID 07/31/20 07/31/20 History [Simbrinza] colchicine 0.3 mg PO EVERY OTHER DAY 07/31/20 07/31/20 History krill oil 500 mg PO DAILY 07/31/20 07/31/20 History spironolactone 50 mg PO HS 07/31/20 07/31/20 History Laboratory Tests 08/02/20 04:52 Sodium 135 mmol/L L mmol/L (137-145) Potassium 4.2 mmol/L mmol/L (3.4-5.0) Chloride 100 mmol/L mmol/L (98-107) Carbon Dioxide 29 mmol/L mmol/L (22-30) Anion Gap 6 mmol/L L mmol/L (8-16) BUN 27 mg/dL H mg/dL (9-20) Creatinine 1.70 mg/dL H mg/dL (0.7-1.3) Estim Creat Clear Calc 32 ml/min ml/min Estimated GFR 39 L (59 - ) Glucose 107 mg/dL mg/dL (75-110) Calcium 10.2 mg/dL mg/dL (8.4-10.2) Magnesium 1.5 mg/dL L mg/dL (1.6-2.3) Patient hx anesthesia problems: none Family hx anesthesia problems: none [facility] Past Medical History Medical History Arthritis Benign prostatic hyperplasia Chronic kidney disease, stage 3 Baseline creatinine is around 1.60. Chronic obstructive pulmonary disease PFTs in June 2011 demonstrated mild obstructive ventilatory defect with acute bronchodilator response. 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 Had previously been on warfarin. Diastolic dysfunction Echocardiogram in February 2019 demonstrated mild enlargement of the left ventricular cavity, ejection fraction of 55%, diastolic dysfunction, sigmoid hypertrophy of the septum, severe enlargement of the left atrium and mild enlargement of the right atrium, and [id number] mitral valve regurgitation. Diverticulitis (~2007) Diverticulitis with perforation and abscess treated with percutaneous abscess drainage and antibiotics. 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 Glaucoma Gout Hearing loss Hyperlipidemia Peripheral neuropathy Persistent atrial fibrillation Pneumonia Vitamin D deficiency Surgical History Surgical History (Re
--- NOTE | 2020-08-02 16:49 | PM.PNCARD ---
Progress Note: A&P Assessment and Plan (1) Essential hypertension: Code(s): I10 - Essential (primary) hypertension Status: Acute Assessment and Plan: Stable. (2) Diastolic dysfunction: Code(s): I51.89 - Other ill-defined heart diseases Status: Acute Assessment and Plan: Stable. (3) Chronic obstructive pulmonary disease: Code(s): J44.9 - Chronic obstructive pulmonary disease, unspecified Status: Acute (4) Chronic kidney disease, stage 3: Code(s): N18.3 - Chronic kidney disease, stage 3 (moderate) Status: Acute (5) Persistent atrial fibrillation: Code(s): I48.19 - Other persistent atrial fibrillation Status: Acute Assessment and Plan: Could be failure of Pradaxa or due to cerebral small vessel ischemic disease. Likely due to failure of Pradaxa as RICHMOND today showed significant spontaneous echo contrast in left atrium and possible thrombus in appendage. Discussed with patient extensively about warfarin and bridging with Lovenox. Called pharmacy and he needs q 12 hours dosing of Lovenox at 1 mg/kg SQ. Would start warfarin 5 mg daily and stop Pradaxa. May d/c home from cardiology standpoint and f/u with me in 2 weeks. (6) Acute cerebrovascular accident: Code(s): I63.9 - Cerebral infarction, unspecified Status: Acute Subjective Date/time seen: 08/02/20 16:49 Had RICHMOND this morning. No complications. He has walked to restroom without any problems and had late lunch without any problems. Denies chest pain or sob or bleeding. Exam Const: General: comfortable and no acute distress Neck: Neck: no JVD Carotids: no bruits Resp: Auscultation: no crackles, no rales, no rhonchi and no wheezes Other: Coarse breath sounds bilaterally Cardio: Rate: regular rate Rhythm: abnormal rhythm Heart sounds: no murmurs Peripheral pulses: dorsalis pedis present GI: GI Palp: Yes abdominal tenderness and Yes Soft to palpation Neuro: General: oriented to person, oriented to place and oriented to time Extrem: Right upper extremity: no edema Left upper extremity: no edema Objective Data Vital Signs Vital Signs: Vital Signs - 24 hr 08/01/20 20:00 08/01/20 22:00 08/02/20 00:00 Temperature 97.3 F L Pulse Rate 84 85 103 H Respiratory Rate 16 Blood Pressure 143/88 H Pulse Oximetry 96 08/02/20 04:00 08/02/20 06:00 08/02/20 07:30 Temperature 97.5 F L 97.6 F Pulse Rate 82 85 92 Respiratory Rate 18 20 Blood Pressure 117/61 132/105 H Pulse Oximetry 97 97 08/02/20 07:50 08/02/20 07:55 08/02/20 08:00 Temperature 97.4 F L Pulse Rate 91 90 91 Respiratory Rate 15 16 14 Blood Pressure 118/82 122/84 118/61 Pulse Oximetry 97 96 96 08/02/20 08:15 08/02/20 08:30 08/02/20 08:45 Temperature Pulse Rate 88 95 82 Respiratory Rate 16 18 18 Blood Pressure 118/69 127/65 112/81 Pulse Oximetry 92 93 98 08/02/20 09:05 08/02/20 09:20 08/02/20 10:55 Temperature Pulse Rate 78 87 Respiratory Rate 17 Blood Pressure 132/96 H Pulse Oximetry 93 100 08/02/20 11:00 08/02/20 11:05 08/02/20 11:10 Temperature Pulse Rate 86 88 90 Respiratory Rate 16 12 16 Blood Pressure 129/99 H 85/65 L 103/77 Pulse Oximetry 100 100 100 08/02/20 11:15 08/02/20 11:30 08/02/20 11:45 Temperature Pulse Rate 84 82 82 Respiratory Rate 15 14 16 Blood Pressure 102/69 123/64 124/103 H Pulse Oximetry 100 98 98 08/02/20 12:00 08/02/20 12:15 08/02/20 13:22 Temperature 97.7 F Pulse Rate 99 89 96 Respiratory Rate 20 21 H 18 Blood Pressure 140/84 132/76 139/76 Pulse Oximetry 98 98 94 08/02/20 16:00 Temperature Pulse Rate 99 Respiratory Rate Blood Pressure Pulse Oximetry Intake/Output Intake/Output: Intake & Output 07/30/20 07/31/20 08/01/20 08/02/20 23:59 23:59 23:59 23:59 Intake Total 580 1420 890 Output Total 450 1700 Balance 580 970 -810 Meds/Results Medications: Active Medications
--- NOTE | 2020-08-02 17:32 | PM.DS ---
DS: Admitting Diagnosis Admitting Diagnosis Admitting Diagnosis: Stroke symptoms. DS: Discharge Diagnosis Discharge Diagnosis (1) Acute cerebrovascular accident: Code(s): I63.9 - Cerebral infarction, unspecified Status: Acute Assessment and Plan: Evident on brain MRI. Etiology suspected to be cardioembolic in etiology given his longstanding, persistent atrial fibrillation, although patient states he is compliant with a/c. Other etiology possible due to chronic small vessel disease. Initiating aspirin has been held at this time given HAS-BLED score of 5; CHADS2-VASc score is 6. Dr. Lowry and Dr. Abreu following and appreciate recommendations. RICHMOND today shows possible thrombus in appendage and significant spontaneous echo contrast in left atrium.Possible failure of Pradaxa Patient to start warfarin and Lovenox bridge therapy nilson Ricketts for discharge from Cardiology standpoint Monitor (2) Persistent atrial fibrillation: Code(s): I48.19 - Other persistent atrial fibrillation Status: Acute Assessment and Plan: Rate controlled. Compliant with home metoprolol and Pradaxa Please see above a/p; patient to start warfarin and lovenox bridge (3) Current use of [facility] anticoagulation: Code(s): Z79.01 - correction (current) use of anticoagulants Status: Acute Assessment and Plan: Complaint with home Pradaxa Resumed per Cardiology Please see above a/p (4) Chronic kidney disease, stage 3: Code(s): N18.3 - Chronic kidney disease, stage 3 (moderate) Status: Acute Assessment and Plan: Cr appears to be at baseline. Cr 1.70 today (5) Chronic obstructive pulmonary disease: Code(s): J44.9 - Chronic obstructive pulmonary disease, unspecified Status: Acute Assessment and Plan: No acute issues. Breathing comfortably on RA Resume home medications Monitor (6) Diastolic dysfunction: Code(s): I51.89 - Other ill-defined heart diseases Status: Acute Assessment and Plan: Clinically compensated. No acute issues Continue home medications (7) Essential hypertension: Code(s): I10 - Essential (primary) hypertension Status: Acute Assessment and Plan: BP well controlled at 120s-130s sys today continue home antihypertensives for now Monitor DS: Summary Hospital Course Reason for hospitalization: Acute CVA; persistent a. fib with suspected failed therapy of Pradaxa Hospital Course: Patient is a very pleasant 84-year-old male with history of stroke, chronic atrial fibrillation on long-term anticoagulation with dabigatran, diastolic congestive heart failure, chronic kidney disease, hypertension, and COPD who presented to the emergency department on 07/31 via private vehicle from home for evaluation of stroke-like symptoms. He had noticed his right side of his tongue and upper jaw felt numb and had difficulty speaking with difficulty with word recall at around 09:30 that morning; his subsequently decided to bring the patient into the ED for further evaluation. Per ED note, given the fact that he was on Pradaxa and experiencing mild symptoms, tPa was not given in the ED. CVA was suspected and patient admitted under this setting. Please see H&P for further details. Presenting VS: Temp Pulse Resp BP Pulse Ox 97.6 F 97 18 149/83 H 98 07/31/20 10:30 07/31/20 10:30 07/31/20 10:30 07/31/20 10:30 07/31/20 10:30 Presenting Pertinent labs: CBC, coag, UA, chemistry grossly unremarkable for etiology of symptoms Micro: none Imaging: Head CT 07/31/20 11:23 IMPRESSION: Cerebral atherosclerosis and chronic small vessel ischemic changes of the cerebral white matte
[2020-08-02] MEDS: WARFARIN (*PBKC) 5 MG TABLET PO (18:03)
== END 2020-08-02 18:20 | disposition home or self-care (01) | DRG 65 ==
LOC: ANHED 12:46 → ANH2MED 13:12
PROVIDERS: Internal Medicine Cardiovascular Disease; Physician Assistant; Admitting Provider Family Medicine; Emergency Provider Emergency Medicine; PCP Internal Medicine; Visit Provider Internal Medicine
PROC: B24BZZ4 Ultrasonography of Heart with Aorta, Transesophageal (ICD-10-PCS; CPT 93312; principal; 2020-08-02 07:45)
DX: I63.9 Cerebral infarction, unspecified (principal); I48.19 Other persistent atrial fibrillation; I13.0 Hypertensive heart and chronic kidney disease with heart failure and stage 1 through stage 4 chronic kidney disease, or unspecified chronic kidney disease; I50.32 Chronic diastolic (congestive) heart failure; R29.810 Facial weakness; R47.89 Other speech disturbances; N18.3 Chronic kidney disease, stage 3 (moderate); I51.3 Intracardiac thrombosis, not elsewhere classified; J44.9 Chronic obstructive pulmonary disease, unspecified; E78.5 Hyperlipidemia, unspecified; H40.9 Unspecified glaucoma; M19.90 Unspecified osteoarthritis, unspecified site; G62.9 Polyneuropathy, unspecified; R29.701 NIHSS score 1; E55.9 Vitamin D deficiency, unspecified; E66.9 Obesity, unspecified; Z98.42 Cataract extraction status, left eye; Z79.01 Long term (current) use of anticoagulants; Z98.41 Cataract extraction status, right eye; Z90.49 Acquired absence of other specified parts of digestive tract; Z87.891 Personal history of nicotine dependence; N40.0 Benign prostatic hyperplasia without lower urinary tract symptoms; Z68.32 Body mass index [BMI] 32.0-32.9, adult
CPT/HCPCS: 36415; 70450; 70551; 80048; 80053; 83735; 85025; 85610; 85730; 93005; 93312; 93320; 93325; 93880; 94640; 99285; A9270; G0378; J2001; J2250; J2704; J3010; J3475; J7040

== ENCOUNTER 2020-08-06 10:22 | Outpatient (CLI) | payer MEDICARE, SELFPAY ==
[2020-08-06 11:17] LABS: Basophils Percent Auto 0.4 % (0.2-1.2); Eosinophils Absolute Auto 0.1 K/mm3 (0-0.3); Eosinophils Percent Auto 0.8 % (0-4.4); Hematocrit 43.2 % (42.0-52.0); Immature Granulocyte Absolute 0.03 K/mm3 (0.00-0.031); Immature Granulocyte Percent A 0.3 % (0-0.5); Lymphocytes Percent Auto 17.3 % (18.3-44.2); Mean Corpuscular HGB Conc 34.7 g/dl (32-36); Mean Corpuscular Volume 94.9 fl (80-100); Mean Platelet Volume 10.5 fl (7.4-10.4); Monocytes Absolute Auto 1.3 K/mm3 (0.1-0.6); Monocytes Percent Auto 12.7 % (2.6-8.5); Neutrophils Absolute Auto 7.1 K/mm3 (1.3-6.7); Neutrophils Percent Auto 68.5 % (45.5-73.1); Platelet Count Result 278 k/mm3 (150-375); Red Blood Count 4.55 M/mm3 (4.6-6.20); Red Cell Distribution Width 13.3 % (11.5-14.5); White Blood Count 10.4 K/mm3 (4.5-10.0)
[2020-08-06 11:25] LABS: Anion Gap 9 mmol/L (8-16); Blood Urea Nitrogen 28 mg/dL (9-20); Calcium 10.3 mg/dL (8.4-10.2); Carbon Dioxide 25 mmol/L (22-30); Chloride 103 mmol/L (98-107); Estimated Glomerular Filt Rate 41; Glucose 114 mg/dL (75-110); Potassium 4.1 mmol/L (3.4-5.0); Sodium 137 mmol/L (137-145)
[2020-08-06 11:27] LABS: INR 1.8; Prothrombin Time 20.2 Seconds (11.1-14.7)
== END 2020-08-06 10:23 | disposition home or self-care (01) ==
LOC: ANHLAB 10:26
PROVIDERS: PCP Internal Medicine; Visit Provider Physician Assistant
DX: Z79.899 Other long term (current) drug therapy (principal); I10 Essential (primary) hypertension; I63.9 Cerebral infarction, unspecified; Z79.01 Long term (current) use of anticoagulants
CPT/HCPCS: 36415; 80048; 85025; 85610

== ENCOUNTER 2020-09-23 10:54 | Outpatient (CLI) | payer MEDICARE, SELFPAY ==
--- NOTE | ~2020-09-23 | XR_ITS ---
EXAMINATION: XR chest 2V EXAM DATE: 09/23/2020 11:23 INDICATION: R05 - Cough TECHNIQUE: Frontal and lateral projections of the chest obtained and reviewed. Comparison is made to prior examination from 11/02/2019. FINDINGS: Chronically elevated left hemidiaphragm. The lungs are clear. There are no pleural effusio ns. The cardiomediastinal silhouette is within normal limits. There is no pneumothorax suspected. There is aortic arteriosclerosis. There are mild bony degenerative changes. Mild to moderate thoracal lumbar scoliosis. IMPRESSION: No acute cardiopulmonary findings. Reviewed, dictated and finalized at location A. [facility] NURSE
[2020-09-23 11:22] LABS: Basophils Percent Auto 0.2 % (0.2-1.2); Eosinophils Percent Auto 0.1 % (0-4.4); Hematocrit 45.8 % (42.0-52.0); Hemoglobin 15.8 g/dL (14.0-18.0); Immature Granulocyte Absolute 0.02 K/mm3 (0.00-0.031); Immature Granulocyte Percent A 0.2 % (0-0.5); Lymphocytes Absolute Auto 0.92 K/mm3 (0.9-3.2); Lymphocytes Percent Auto 11.1 % (18.3-44.2); Mean Corpuscular HGB Conc 34.5 g/dl (32-36); Mean Corpuscular Hemoglobin 32.2 pg (26-34); Mean Corpuscular Volume 93.5 fl (80-100); Mean Platelet Volume 9.7 fl (7.4-10.4); Monocytes Absolute Auto 0.9 K/mm3 (0.1-0.6); Monocytes Percent Auto 11.1 % (2.6-8.5); Neutrophils Absolute Auto 6.4 K/mm3 (1.3-6.7); Neutrophils Percent Auto 77.3 % (45.5-73.1); Platelet Count Result 234 k/mm3 (150-375); Red Cell Distribution Width 12.9 % (11.5-14.5); White Blood Count 8.3 K/mm3 (4.5-10.0)
== END 2020-09-23 10:55 | disposition home or self-care (01) ==
PROVIDERS: PCP Internal Medicine; Visit Provider Internal Medicine
DX: R69 Illness, unspecified (principal); R05 Cough
CPT/HCPCS: 36415; 71046; 85025

== ENCOUNTER 2020-09-25 06:51 | Outpatient (NON) | payer MEDICARE, SELFPAY ==
[2020-09-30 08:52] LABS: SARS-CoV-2 RNA PCR Positive
== END 2020-09-25 06:52 ==
PROVIDERS: PCP Internal Medicine; Visit Provider Internal Medicine
DX: U07.1 COVID-19 (principal)
CPT/HCPCS: 87635; C9803; U0003

== ENCOUNTER 2020-11-01 10:50 | Outpatient (RCR) | payer MEDICARE, SELFPAY ==
[2020-08-09 11:03] LABS: INR 2.2; Prothrombin Time 23.6 Seconds (11.1-14.7)
[2020-08-12 10:35] LABS: INR 2.6
[2020-08-19 10:51] LABS: INR 2.1; Prothrombin Time 23.4 Seconds (11.1-14.7)
[2020-09-02 09:26] LABS: INR 2.7; Prothrombin Time 27.8 Seconds (11.1-14.7)
[2020-09-27 13:32] LABS: INR 4.5; Prothrombin Time 42.7 Seconds (11.1-14.7)
[2020-09-29 12:37] LABS: INR 3.9; Prothrombin Time 38.4 Seconds (11.1-14.7)
[2020-10-04 10:54] LABS: Prothrombin Time 47.1 Seconds (11.1-14.7)
[2020-10-04 11:06] LABS: INR 5.1
[2020-10-06 11:46] LABS: INR 3.6; Prothrombin Time 36.7 Seconds (11.1-14.7)
[2020-10-18 12:09] LABS: INR 2.8; Prothrombin Time 29.7 Seconds (11.1-14.7)
[2020-11-01 11:42] LABS: Basophils Absolute Auto 0.1 K/mm3 (0.0-0.1); Basophils Percent Auto 0.4 % (0.2-1.2); Eosinophils Absolute Auto 0.1 K/mm3 (0-0.3); Eosinophils Percent Auto 0.7 % (0-4.4); Hematocrit 46.6 % (42.0-52.0); Hemoglobin 15.7 g/dL (14.0-18.0); Immature Granulocyte Absolute 0.28 K/mm3 (0.00-0.031); Immature Granulocyte Percent A 1.5 % (0-0.5); Mean Corpuscular HGB Conc 33.7 g/dl (32-36); Mean Corpuscular Hemoglobin 31.2 pg (26-34); Mean Corpuscular Volume 92.6 fl (80-100); Mean Platelet Volume 9.8 fl (7.4-10.4); Monocytes Absolute Auto 1.9 K/mm3 (0.1-0.6); Monocytes Percent Auto 9.8 % (2.6-8.5); Neutrophils Absolute Auto 14.8 K/mm3 (1.3-6.7); Neutrophils Percent Auto 77.6 % (45.5-73.1); Platelet Count Result 317 k/mm3 (150-375); Red Blood Count 5.03 M/mm3 (4.6-6.20); Red Cell Distribution Width 14.2 % (11.5-14.5)
[2020-11-01 11:49] LABS: Hemoglobin A1C 5.9 % (<5.7)
[2020-11-01 11:52] LABS: INR 3.3; Prothrombin Time 33.7 Seconds (11.1-14.7)
[2020-11-01 11:53] LABS: Alanine Aminotransferase 26 U/L (4-50); Albumin Level 3.9 g/dL (3.5-5.1); Alkaline Phosphatase 87 U/L (38-126); Anion Gap 7 mmol/L (8-16); Aspartate Amino Transferase 26 U/L (17-59); Bilirubin,Total 0.6 mg/dL (0.2-1.3); Blood Urea Nitrogen 24 mg/dL (9-20); Calcium 9.6 mg/dL (8.4-10.2); Carbon Dioxide 29 mmol/L (22-30); Chloride 101 mmol/L (98-107); Cholesterol 149 mg/dL (0-200); Estimated Glomerular Filt Rate 44; Glucose 112 mg/dL (75-110); HDL Direct 35 mg/dL; Sodium 137 mmol/L (137-145); Triglycerides 154 mg/dL (<150)
[2020-11-01 12:04] LABS: LDL Cholesterol Direct 79 mg/dL
[2020-11-01 12:46] LABS: Free T4 Free Thyroxine 1.23 ng/mL (0.78-2.19)
[2020-11-04 11:38] LABS: Vitamin D 1,25 (OH)2 Total 25 pg/mL (18-72); Vitamin D2 1,25 (OH)2 <8 pg/mL; Vitamin D3 1,25 (OH)2 25 pg/mL
== END 2020-11-07 23:59 | disposition home or self-care (01) ==
LOC: ANHLAB 10:50
PROVIDERS: PCP Internal Medicine; Visit Provider Internal Medicine
DX: Z51.81 Encounter for therapeutic drug level monitoring (principal); I48.91 Unspecified atrial fibrillation; I10 Essential (primary) hypertension; E55.9 Vitamin D deficiency, unspecified; E78.2 Mixed hyperlipidemia; R73.09 Other abnormal glucose; Z79.01 Long term (current) use of anticoagulants; Z79.899 Other long term (current) drug therapy
CPT/HCPCS: 36415; 80048; 80061; 80076; 82652; 83036; 84439; 84443; 85025; 85610

== ENCOUNTER 2021-03-31 10:36 | Outpatient (CLI) | payer MEDICARE, SELFPAY ==
[2021-03-31 11:05] LABS: Basophils Percent Auto 0.2 % (0.2-1.2); Hematocrit 41.8 % (42.0-52.0); Hemoglobin 14.5 g/dL (14.0-18.0); Immature Granulocyte Absolute 0.23 K/mm3 (0.00-0.031); Immature Granulocyte Percent A 1.4 % (0-0.5); Lymphocytes Absolute Auto 1.17 K/mm3 (0.9-3.2); Lymphocytes Percent Auto 7.2 % (18.3-44.2); Mean Corpuscular HGB Conc 34.7 g/dl (32-36); Mean Corpuscular Hemoglobin 32.2 pg (26-34); Mean Corpuscular Volume 92.9 fl (80-100); Mean Platelet Volume 9.8 fl (7.4-10.4); Monocytes Absolute Auto 1.8 K/mm3 (0.1-0.6); Monocytes Percent Auto 10.8 % (2.6-8.5); Neutrophils Absolute Auto 13.1 K/mm3 (1.3-6.7); Neutrophils Percent Auto 80.4 % (45.5-73.1); Platelet Count Result 253 k/mm3 (150-375); Red Cell Distribution Width 14.9 % (11.5-14.5); White Blood Count 16.3 K/mm3 (4.5-10.0)
[2021-03-31 12:00] LABS: Anion Gap 6 mmol/L (8-16); Blood Urea Nitrogen 35 mg/dL (9-20); Calcium 9.4 mg/dL (8.4-10.2); Carbon Dioxide 26 mmol/L (22-30); Chloride 106 mmol/L (98-107); Cholesterol 147 mg/dL (0-200); Estimated Glomerular Filt Rate 48; Glucose 98 mg/dL (75-110); HDL Direct 49 mg/dL; Potassium 4.1 mmol/L (3.4-5.0); Sodium 138 mmol/L (137-145); Triglycerides 81 mg/dL (<150)
[2021-03-31 12:07] LABS: LDL Cholesterol Direct 80 mg/dL
[2021-03-31 12:52] LABS: Free T4 Free Thyroxine 1.08 ng/mL (0.78-2.19)
[2021-04-05 08:41] LABS: Vitamin D 1,25 (OH)2 Total 66 pg/mL (18-72); Vitamin D2 1,25 (OH)2 <8 pg/mL; Vitamin D3 1,25 (OH)2 66 pg/mL
== END 2021-03-31 10:37 | disposition home or self-care (01) ==
LOC: ANHLAB 10:40
PROVIDERS: PCP Internal Medicine; Visit Provider Internal Medicine
DX: R73.09 Other abnormal glucose (principal); I10 Essential (primary) hypertension; Z51.81 Encounter for therapeutic drug level monitoring; Z79.899 Other long term (current) drug therapy; E55.9 Vitamin D deficiency, unspecified
CPT/HCPCS: 36415; 80048; 80061; 82652; 83036; 84439; 84443; 85025

== ENCOUNTER 2021-04-04 09:17 | Outpatient (RCR) | payer SELFPAY | END 2021-07-03 23:59 | disposition home or self-care (01) | LOC: ANHAUDASC 09:17 | PROVIDERS: PCP Internal Medicine; Visit Provider Internal Medicine | DX: Z46.1 Encounter for fitting and adjustment of hearing aid (principal) | CPT/HCPCS: 99199 ==

== ENCOUNTER 2021-04-05 08:36 | Outpatient (CLI) | payer MEDICARE, SELFPAY ==
[2021-04-05 18:31] LABS: Basophils Absolute Auto 0.1 K/mm3 (0.0-0.1); Basophils Percent Auto 0.4 % (0.2-1.2); Eosinophils Absolute Auto 0.1 K/mm3 (0-0.3); Eosinophils Percent Auto 0.8 % (0-4.4); Hematocrit 51.8 % (42.0-52.0); Hemoglobin 16.4 g/dL (14.0-18.0); Immature Granulocyte Absolute 0.27 K/mm3 (0.00-0.031); Lymphocytes Absolute Auto 1.86 K/mm3 (0.9-3.2); Lymphocytes Percent Auto 13.7 % (18.3-44.2); Mean Corpuscular HGB Conc 31.7 g/dl (32-36); Mean Corpuscular Hemoglobin 31.7 pg (26-34); Mean Platelet Volume 10.1 fl (7.4-10.4); Monocytes Absolute Auto 1.3 K/mm3 (0.1-0.6); Monocytes Percent Auto 9.7 % (2.6-8.5); Neutrophils Percent Auto 73.4 % (45.5-73.1); Platelet Count Result 215 k/mm3 (150-375); Red Blood Count 5.18 M/mm3 (4.6-6.20); Red Cell Distribution Width 15.6 % (11.5-14.5); White Blood Count 13.6 K/mm3 (4.5-10.0)
== END 2021-04-05 08:37 | disposition home or self-care (01) ==
PROVIDERS: PCP Internal Medicine; Visit Provider Internal Medicine
DX: R79.89 Other specified abnormal findings of blood chemistry (principal)
CPT/HCPCS: 36415; 85025

== ENCOUNTER 2021-05-18 11:30 | Outpatient (RCR) | payer MEDICARE, SELFPAY | END 2021-07-17 23:59 | disposition home or self-care (01) | LOC: ANHAUDASC 11:30 | PROVIDERS: PCP Internal Medicine | DX: Z46.1 Encounter for fitting and adjustment of hearing aid (principal) | CPT/HCPCS: 99199 ==

== ENCOUNTER 2021-05-26 13:33 | Outpatient (CLI) | payer MEDICARE, SELFPAY ==
[2021-05-26 15:48] LABS: Basophils Percent Auto 0.3 % (0.2-1.2); Eosinophils Absolute Auto 0.1 K/mm3 (0-0.3); Eosinophils Percent Auto 1.1 % (0-4.4); Hematocrit 44.2 % (42.0-52.0); Hemoglobin 14.8 g/dL (14.0-18.0); Immature Granulocyte Absolute 0.05 K/mm3 (0.00-0.031); Immature Granulocyte Percent A 0.6 % (0-0.5); Lymphocytes Absolute Auto 1.69 K/mm3 (0.9-3.2); Lymphocytes Percent Auto 18.9 % (18.3-44.2); Mean Corpuscular HGB Conc 33.5 g/dl (32-36); Mean Corpuscular Hemoglobin 32.7 pg (26-34); Mean Corpuscular Volume 97.6 fl (80-100); Mean Platelet Volume 10.9 fl (7.4-10.4); Monocytes Absolute Auto 1.2 K/mm3 (0.1-0.6); Monocytes Percent Auto 13.5 % (2.6-8.5); Neutrophils Absolute Auto 5.9 K/mm3 (1.3-6.7); Neutrophils Percent Auto 65.6 % (45.5-73.1); Platelet Count Result 229 k/mm3 (150-375); Red Blood Count 4.53 M/mm3 (4.6-6.20); White Blood Count 8.9 K/mm3 (4.5-10.0)
[2021-05-26 15:55] LABS: Anion Gap 8 mmol/L (8-16); Blood Urea Nitrogen 29 mg/dL (9-20); Calcium 9.7 mg/dL (8.4-10.2); Carbon Dioxide 25 mmol/L (22-30); Chloride 106 mmol/L (98-107); Estimated Glomerular Filt Rate 38; Glucose 100 mg/dL (75-110); Sodium 139 mmol/L (137-145)
== END 2021-05-26 13:34 | disposition home or self-care (01) ==
PROVIDERS: PCP Internal Medicine; Visit Provider Internal Medicine
DX: R19.7 Diarrhea, unspecified (principal); I10 Essential (primary) hypertension
CPT/HCPCS: 36415; 80048; 85025; 85610

== ENCOUNTER 2021-05-27 13:32 | Outpatient (CLI) | payer MEDICARE, SELFPAY ==
[2021-06-06 09:04] LABS: Potassium, Feces 84
[2021-06-06 09:05] LABS: Chloride, Feces 62
== END 2021-05-27 13:33 | disposition home or self-care (01) ==
PROVIDERS: PCP Internal Medicine; Visit Provider Internal Medicine
DX: R19.7 Diarrhea, unspecified (principal)
CPT/HCPCS: 82438; 84302; 84311; 87045; 87046; 87177; 87209; 87324; 87427; 89055

== ENCOUNTER 2021-06-27 08:48 | Outpatient (RCR) | payer MEDICARE, SELFPAY ==
[2021-04-26 18:28] LABS: Prothrombin Time 23.5 Seconds (11.1-14.7)
[2021-05-26 16:06] LABS: INR 2.1; Prothrombin Time 22.8 Seconds (11.1-14.7)
[2021-06-27 20:03] LABS: INR 2.2
== END 2021-07-25 23:59 | disposition home or self-care (01) ==
LOC: ANHASCLAB 08:48
PROVIDERS: PCP Internal Medicine; Visit Provider Internal Medicine
DX: Z51.81 Encounter for therapeutic drug level monitoring (principal); Z86.718 Personal history of other venous thrombosis and embolism; Z79.01 Long term (current) use of anticoagulants
CPT/HCPCS: 36415; 85610; 99199

== ENCOUNTER 2021-08-01 08:10 | Outpatient (CLI) | payer MEDICARE, SELFPAY ==
[2021-08-01 20:16] LABS: Basophils Percent Auto 0.3 % (0.2-1.2); Eosinophils Absolute Auto 0.1 K/mm3 (0-0.3); Eosinophils Percent Auto 1.8 % (0-4.4); Hematocrit 46.8 % (42.0-52.0); Hemoglobin 15.4 g/dL (14.0-18.0); Immature Granulocyte Absolute 0.02 K/mm3 (0.00-0.031); Immature Granulocyte Percent A 0.3 % (0-0.5); Lymphocytes Percent Auto 23.8 % (18.3-44.2); Mean Corpuscular HGB Conc 32.9 g/dl (32-36); Mean Corpuscular Hemoglobin 33.3 pg (26-34); Mean Corpuscular Volume 101.1 fl (80-100); Mean Platelet Volume 10.9 fl (7.4-10.4); Monocytes Absolute Auto 0.8 K/mm3 (0.1-0.6); Monocytes Percent Auto 11.4 % (2.6-8.5); Neutrophils Absolute Auto 4.2 K/mm3 (1.3-6.7); Neutrophils Percent Auto 62.4 % (45.5-73.1); Platelet Count Result 202 k/mm3 (150-375); Red Blood Count 4.63 M/mm3 (4.6-6.20); Red Cell Distribution Width 14.2 % (11.5-14.5); White Blood Count 6.7 K/mm3 (4.5-10.0)
[2021-08-01 20:18] LABS: Alanine Aminotransferase 20 U/L (4-50); Albumin Level 3.7 g/dL (3.5-5.1); Alkaline Phosphatase 72 U/L (38-126); Anion Gap 9 mmol/L (8-16); Aspartate Amino Transferase 29 U/L (17-59); Bilirubin,Total 0.7 mg/dL (0.2-1.3); Blood Urea Nitrogen 21 mg/dL (9-20); Calcium 9.1 mg/dL (8.4-10.2); Carbon Dioxide 26 mmol/L (22-30); Chloride 104 mmol/L (98-107); Cholesterol 137 mg/dL (0-200); Estimated Glomerular Filt Rate 58; Glucose 134 mg/dL (65-110); HDL Direct 37 mg/dL; Potassium 3.7 mmol/L (3.4-5.0); Sodium 139 mmol/L (137-145); Triglycerides 119 mg/dL (<150)
[2021-08-01 20:28] LABS: LDL Cholesterol Direct 69 mg/dL
[2021-08-01 20:33] LABS: Free T4 Free Thyroxine 1.33 ng/mL (0.78-2.19)
[2021-08-01 21:12] LABS: Hemoglobin A1C 5.8 % (<5.7)
== END 2021-08-01 08:11 | disposition home or self-care (01) ==
PROVIDERS: PCP Internal Medicine; Visit Provider Internal Medicine
DX: Z51.81 Encounter for therapeutic drug level monitoring (principal); Z79.899 Other long term (current) drug therapy; E78.2 Mixed hyperlipidemia; R73.09 Other abnormal glucose; I10 Essential (primary) hypertension; D72.829 Elevated white blood cell count, unspecified
CPT/HCPCS: 36415; 80053; 80061; 83036; 84439; 84443; 85025

== ENCOUNTER 2021-10-12 08:44 | Outpatient (RCR) | payer MEDICARE, SELFPAY ==
[2021-07-28 19:57] LABS: INR 2.9; Prothrombin Time 29.5 Seconds (11.1-14.7)
[2021-10-12 19:19] LABS: INR 2.5; Prothrombin Time 26.3 Seconds (11.1-14.7)
== END 2021-10-26 23:59 | disposition home or self-care (01) ==
LOC: ANHASCLAB 08:44
PROVIDERS: PCP Internal Medicine; Visit Provider Internal Medicine
DX: Z51.81 Encounter for therapeutic drug level monitoring (principal); Z86.718 Personal history of other venous thrombosis and embolism; Z79.01 Long term (current) use of anticoagulants
CPT/HCPCS: 36415; 85610

== ENCOUNTER 2022-03-23 13:34 | Outpatient (CLI) | payer MEDICARE, SELFPAY ==
[2022-03-23 19:15] LABS: INR 2.4; Prothrombin Time 25.4 Seconds (11.1-14.7)
== END 2022-03-23 13:35 | disposition home or self-care (01) ==
PROVIDERS: PCP Internal Medicine; Visit Provider Internal Medicine
DX: Z79.01 Long term (current) use of anticoagulants (principal); Z86.718 Personal history of other venous thrombosis and embolism
CPT/HCPCS: 36415; 85610

== ENCOUNTER 2022-04-12 09:08 | Outpatient (CLI) | payer MEDICARE, SELFPAY ==
[2022-04-12 20:19] LABS: Basophils Percent Auto 0.4 % (0.2-1.2); Eosinophils Absolute Auto 0.1 K/mm3 (0-0.3); Eosinophils Percent Auto 1.4 % (0-4.4); Hematocrit 49.6 % (42.0-52.0); Hemoglobin 15.8 g/dL (14.0-18.0); Immature Granulocyte Absolute 0.03 K/mm3 (0.00-0.031); Immature Granulocyte Percent A 0.4 % (0-0.5); Lymphocytes Absolute Auto 1.98 K/mm3 (0.9-3.2); Mean Corpuscular HGB Conc 31.9 g/dl (32-36); Mean Corpuscular Hemoglobin 32.2 pg (26-34); Mean Corpuscular Volume 101.2 fl (80-100); Mean Platelet Volume 10.7 fl (7.4-10.4); Monocytes Absolute Auto 0.9 K/mm3 (0.1-0.6); Monocytes Percent Auto 11.4 % (2.6-8.5); Neutrophils Absolute Auto 4.6 K/mm3 (1.3-6.7); Neutrophils Percent Auto 60.4 % (45.5-73.1); Platelet Count Result 249 k/mm3 (150-375); White Blood Count 7.6 K/mm3 (4.5-10.0)
[2022-04-12 20:23] LABS: Alanine Aminotransferase 20 U/L (6-50); Albumin Level 4.2 g/dL (3.5-5.1); Alkaline Phosphatase 77 U/L (38-126); Anion Gap 8 mmol/L (8-16); Aspartate Amino Transferase 33 U/L (17-59); Bilirubin,Total 0.8 mg/dL (0.2-1.3); Blood Urea Nitrogen 20 mg/dL (9-20); Calcium 9.4 mg/dL (8.4-10.2); Carbon Dioxide 28 mmol/L (22-30); Chloride 103 mmol/L (98-107); Cholesterol 139 mg/dL (0-200); Estimated Glomerular Filt Rate 48; Glucose 124 mg/dL (65-110); HDL Direct 38 mg/dL; Potassium 3.8 mmol/L (3.4-5.0); Sodium 139 mmol/L (137-145); Triglycerides 110 mg/dL (<150); Uric Acid 5.6 mg/dL (3.5-8.5)
[2022-04-12 20:36] LABS: LDL Cholesterol Direct 76 mg/dL
[2022-04-12 21:13] LABS: Free T4 Free Thyroxine 1.42 ng/mL (0.78-2.19)
[2022-04-12 21:19] LABS: Hemoglobin A1C 6.1 % (<5.7)
[2022-04-12 21:21] LABS: Creatinine Urine 42.8 mg/dL
[2022-04-12 21:25] LABS: MALB Creatinine Ratio 17.8 mg/g (0-30); Microalbumin Urine Random 7.6 mg/L (0-16.7)
[2022-04-14 03:36] LABS: Homocysteine 9.3 umol/L (<11.4)
== END 2022-04-12 09:09 | disposition home or self-care (01) ==
PROVIDERS: PCP Internal Medicine; Visit Provider Internal Medicine
DX: R73.09 Other abnormal glucose (principal); I12.9 Hypertensive chronic kidney disease with stage 1 through stage 4 chronic kidney disease, or unspecified chronic kidney disease; N18.30 Chronic kidney disease, stage 3 unspecified; E78.2 Mixed hyperlipidemia; E55.9 Vitamin D deficiency, unspecified; Z51.81 Encounter for therapeutic drug level monitoring; Z79.899 Other long term (current) drug therapy; M1A.9XX0 Chronic gout, unspecified, without tophus (tophi)
CPT/HCPCS: 36415; 80053; 80061; 82043; 82306; 83036; 83090; 84439; 84443; 84550; 85025

== ENCOUNTER 2022-07-24 08:47 | Outpatient (CLI) | payer MEDICARE, SELFPAY ==
[2022-07-24 19:18] LABS: Anion Gap 14 mmol/L (8-16); Blood Urea Nitrogen 21 mg/dL (9-20); Calcium 9.1 mg/dL (8.4-10.2); Carbon Dioxide 24 mmol/L (22-30); Chloride 102 mmol/L (98-107); Estimated Glomerular Filt Rate 48; Glucose 122 mg/dL (65-110); Sodium 140 mmol/L (137-145)
== END 2022-07-24 08:48 | disposition home or self-care (01) ==
LOC: ANHASCIMG 08:52 → ANHASCLAB 08:55
PROVIDERS: PCP Internal Medicine; Visit Provider Internal Medicine
DX: E78.5 Hyperlipidemia, unspecified (principal); E55.9 Vitamin D deficiency, unspecified; N18.9 Chronic kidney disease, unspecified; I50.9 Heart failure, unspecified; I48.91 Unspecified atrial fibrillation
CPT/HCPCS: 36415; 80048; 82306

== ENCOUNTER 2022-11-07 08:38 | Outpatient (CLI) | payer MEDICARE, SELFPAY ==
[2022-11-07 14:43] LABS: Alanine Aminotransferase 24 U/L (6-50); Albumin Level 4.3 g/dL (3.5-5.1); Alkaline Phosphatase 83 U/L (38-126); Anion Gap 7 mmol/L (8-16); Aspartate Amino Transferase 34 U/L (17-59); Bilirubin,Total 0.5 mg/dL (0.2-1.3); Blood Urea Nitrogen 25 mg/dL (9-20); Calcium 9.2 mg/dL (8.4-10.2); Carbon Dioxide 28 mmol/L (22-30); Chloride 103 mmol/L (98-107); Cholesterol 142 mg/dL (0-200); Estimated Glomerular Filt Rate 44; Glucose 117 mg/dL (65-110); HDL Direct 32 mg/dL; Potassium 4.2 mmol/L (3.4-5.0); Sodium 138 mmol/L (137-145); Triglycerides 144 mg/dL (<150)
[2022-11-07 14:54] LABS: LDL Cholesterol Direct 74 mg/dL
[2022-11-07 15:41] LABS: Hemoglobin A1C 6.3 % (<5.7)
== END 2022-11-07 08:39 | disposition home or self-care (01) ==
PROVIDERS: PCP Internal Medicine; Visit Provider Internal Medicine
DX: E55.9 Vitamin D deficiency, unspecified (principal); E78.2 Mixed hyperlipidemia; R73.09 Other abnormal glucose; I10 Essential (primary) hypertension
CPT/HCPCS: 36415; 80053; 80061; 82306; 83036

== ENCOUNTER 2022-11-14 07:57 | Outpatient (CLI) | payer MEDICARE, SELFPAY ==
[2022-11-14 08:45] LABS: Anion Gap 9 mmol/L (8-16); Blood Urea Nitrogen 25 mg/dL (9-20); Calcium 9.2 mg/dL (8.4-10.2); Carbon Dioxide 25 mmol/L (22-30); Chloride 105 mmol/L (98-107); Estimated Glomerular Filt Rate 41; Glucose 128 mg/dL (65-110); Potassium 4.3 mmol/L (3.4-5.0); Sodium 139 mmol/L (137-145)
== END 2022-11-14 07:58 | disposition home or self-care (01) ==
LOC: ANHLAB 07:59
PROVIDERS: PCP Internal Medicine; Visit Provider Internal Medicine
DX: N18.30 Chronic kidney disease, stage 3 unspecified (principal)
CPT/HCPCS: 36415; 80048

== ENCOUNTER 2023-05-02 07:52 | Outpatient (CLI) | payer MEDICARE, SELFPAY | END 2023-05-02 07:53 | disposition home or self-care (01) | LOC: ANHAUDASC 07:53 | PROVIDERS: PCP Internal Medicine; Visit Provider Internal Medicine | DX: H90.3 Sensorineural hearing loss, bilateral (principal) | CPT/HCPCS: 92557; 92567 ==

== ENCOUNTER 2024-04-02 09:00 | Outpatient (RCR) | payer SELFPAY | END 2024-06-22 23:59 | disposition home or self-care (01) | LOC: ANHAUDASC 09:00 | PROVIDERS: PCP Internal Medicine; Visit Provider Internal Medicine | DX: Z46.1 Encounter for fitting and adjustment of hearing aid (principal) | CPT/HCPCS: 99199; V5014 ==

== ENCOUNTER 2024-04-03 08:03 | Outpatient (CLI) | payer MEDICARE, SELFPAY ==
[2024-04-03 18:11] LABS: Basophils Percent Auto 0.5 % (0.2-1.2); Eosinophils Absolute Auto 0.1 K/mm3 (0-0.3); Eosinophils Percent Auto 1.6 % (0-4.4); Hematocrit 43.4 % (42.0-52.0); Hemoglobin 13.8 g/dL (14.0-18.0); Immature Granulocyte Absolute 0.03 K/mm3 (0.00-0.031); Immature Granulocyte Percent A 0.4 % (0-0.5); Lymphocytes Absolute Auto 1.77 K/mm3 (0.9-3.2); Lymphocytes Percent Auto 22.9 % (18.3-44.2); Mean Corpuscular HGB Conc 31.8 g/dl (32-36); Mean Corpuscular Hemoglobin 30.3 pg (26-34); Mean Corpuscular Volume 95.2 fl (80-100); Mean Platelet Volume 10.5 fl (7.4-10.4); Monocytes Absolute Auto 0.7 K/mm3 (0.1-0.6); Monocytes Percent Auto 9.3 % (2.6-8.5); Neutrophils Absolute Auto 5.1 K/mm3 (1.3-6.7); Neutrophils Percent Auto 65.3 % (45.5-73.1); Platelet Count Result 282 k/mm3 (150-375); Red Blood Count 4.56 M/mm3 (4.6-6.20); Red Cell Distribution Width 16.4 % (11.5-14.5); White Blood Count 7.7 K/mm3 (4.5-10.0)
[2024-04-03 18:17] LABS: Appearance Urine Clear (Clear); Bacteria Urine None Seen /hpf; Bilirubin Urine Negative (Negative); Blood Urine Negative (Negative); Color Urine Yellow (Yellow); Glucose Urine UA Negative (Negative); Ketones Urine Negative (Negative); Leukocyte Esterase Ur Negative LEU/UL (Negative); Nitrate Urine Negative (Negative); Non Pathogenic Casts 0-2; Protein Urine 1+ mg/dL (Negative); Specific Grav Ur 1.018 (1.001-1.035); Squamous Epithelial Cell Urine None Seen /hpf (Few); WBC Urine 0-5 /hpf (0-3); pH Urine 6.5 (5.0-9.0)
[2024-04-03 18:28] LABS: Add Urine Microscopic? YES
[2024-04-03 18:43] LABS: Alanine Aminotransferase 19 U/L (6-50); Albumin Level 4.1 g/dL (3.5-5.1); Alkaline Phosphatase 75 U/L (38-126); Anion Gap 7 mmol/L (4-12); Aspartate Amino Transferase 28 U/L (17-59); Bilirubin,Total 0.6 mg/dL (0.2-1.3); Blood Urea Nitrogen 18 mg/dL (9-20); Calcium 9.7 mg/dL (8.4-10.2); Carbon Dioxide 29 mmol/L (22-30); Chloride 102 mmol/L (98-107); Cholesterol 116 mg/dL (0-200); Estimated Glomerular Filt Rate 57; Glucose 120 mg/dL (65-110); HDL Direct 28 mg/dL; Potassium 4.2 mmol/L (3.4-5.0); Sodium 138 mmol/L (137-145); Triglycerides 88 mg/dL (<150)
[2024-04-03 18:54] LABS: LDL Cholesterol Direct 75 mg/dL
[2024-04-03 19:00] LABS: Free T4 Free Thyroxine 1.47 ng/mL (0.78-2.19)
[2024-04-03 20:22] LABS: Hemoglobin A1C 5.9 % (<5.7)
== END 2024-04-03 08:04 | disposition home or self-care (01) ==
PROVIDERS: PCP Internal Medicine; Visit Provider Internal Medicine
DX: E78.2 Mixed hyperlipidemia (principal); R73.03 Prediabetes; I10 Essential (primary) hypertension; Z79.899 Other long term (current) drug therapy; Z13.29 Encounter for screening for other suspected endocrine disorder
CPT/HCPCS: 36415; 80053; 80061; 81001; 83036; 84439; 84443; 85025

== ENCOUNTER 2024-04-10 13:38 | Outpatient (CLI) | payer MEDICARE, SELFPAY ==
--- NOTE | ~2024-04-10 | CT_ITS ---
CT of the Abdomen and Pelvis: Indication: Other abnormality of blood cell Technique: 2.5 mm axial scans were obtained through the abdomen and pelvis following intravenous adm inistration of 100 cc of Omnipaque 350. Dose reduction technique was used on this scan by utilizing a utomated exposure control and iterative reconstruction technique. The dose-length product (DLP) was 1 684.81 mGy-cm. Findings: Scans through the lung bases demonstrate 5 mm right basilar pulmonary nodule. The liver, spleen, pancreas, adrenals and kidneys are within normal limits. Cholecystectomy clips are present. There are atherosclerotic calcifications of the aorta. No lymphadenopathy. No bowel obstruction or bowel wall thickening. There is no evidence to suggest acute appendicitis. Sm all fat-containing umbilical hernia noted. There is focal mild inflammatory change adjacent to the si gmoid colon central fat attenuation, suggestive of focal epiploic appendagitis. There is colonic dive rticulosis. Images through the pelvis were performed. Urinary bladder unremarkable. Prostate gland mildly enlarge d. No ascites. Impression: Findings consistent with epiploic appendagitis is adjacent to the sigmoid colon. Small fat-containing umbilical hernia. 5 mm right basilar pulmonary nodule. According to Fleischner Society criteria, for a low-risk patient , no further follow-up required. For a high-risk patient, consider 12 month follow-up CT. Reviewed, dictated and finalized at [facility]. Impression: Findings consistent with epiploic appendagitis is adjacent to the sigmoid colon . Small fat-containing umbilical hernia. 5 mm right basilar pulmonary nodule. According to Fleischner Society criteria, for a low-risk patient, no further follow-up required. For a high-risk patient, consider 12 month follow-up CT.
== END 2024-04-10 13:39 | disposition home or self-care (01) ==
PROVIDERS: PCP Internal Medicine; Visit Provider Internal Medicine
DX: R71.8 Other abnormality of red blood cells (principal); K42.9 Umbilical hernia without obstruction or gangrene; R91.1 Solitary pulmonary nodule
CPT/HCPCS: 74177; Q9967

== ENCOUNTER 2024-04-22 09:10 | Outpatient (CLI) | payer MEDICARE, SELFPAY ==
--- NOTE | 2024-05-13 14:53 | WPDSLEEPSTUD ---
Sleep Study Date of Study: 04/22/24 Ordering Provider: Abelardo Pickett MD Interpreting Physician: Shira Cortés DO Sleep Study Type: Split Polysomnogram Height: 1.7 m Weight: 102.058 kg Body Mass Index: 35.2 Neck Circumference (inches): 18 [place]: 12 Reason for Sleep Study Difficulty sleeping Sleep History The patient is an 88-year-old male that had a sleep study ordered by his primary care physician for evaluation of sleep apnea. The patient occasionally awakens from sleep short of breath. He occasionally awakens at night with heartburn, belching or cough. He occasionally snores but is rarely loud enough that others complain. He occasionally has trouble sleeping when he has a cold. He denies waking up gasping for air throughout the night. He rarely has breathing problems at night observed by himself or others. He denies sweating excessively at night. He denies having heart palpitations or irregular heartbeats during the night. He occasionally falls asleep during the day but rarely falls asleep while driving. He denies cataplexy. He denies having trouble at school or work due to sleepiness. He rarely feels unable to move while waking up or falling asleep. He rarely experiences vivid dreamlike scenes upon awakening or falling asleep. He denies feeling afraid of going to sleep. He denies having nightmares. He occasionally remembers his dreams. He frequently has thoughts racing through his mind. He denies feeling sad or depressed. He rarely has anxiety. He occasionally has muscular tension. He occasionally notices parts of his body jerk. He rarely kicks during the night. He occasionally has crawling and aching feelings in his legs and occasionally has leg pain during the night. He frequently grinds his teeth during sleep but never awakens with morning jaw pain. He is rarely bothered by pain during the day and occasionally awakened by pain during the night. He rarely wakes up feeling stiff in the morning. He rarely wakes up with sore or achy muscles. He rarely wakes up with pain in the neck, spine and other joints. The patient goes to bed at 10:00 p.m. on both weekdays and weekends. It takes him 1 hour to fall asleep. He wakes up 3-4 times throughout the night to urinate and is able to fall back asleep within 15 minutes. He wakes up at 6:30 a.m. on both weekdays and weekends. He typically gets 7 hours of sleep per night. He will stay in bed 1 hour after waking up in the morning. He currently lives with his . He denies consuming any caffeinated beverages within 2 hours of bedtime. He denies engaging in physical exercise before bedtime. He will watch television before falling asleep. He will take naps in afternoon or the evening and they are refreshing. He consumes 3 caffeinated sodas per week. He consumes 1 alcoholic beverage per month. He quit smoking cigarettes 50 years ago. He denies recreational drug use. [facility] Past Medical History Medical History Anxiety Arthritis Benign prostatic hyperplasia Bloody stools BMI 32.0-32.9,adult BMI 34.0-34.9,adult BMI 35.0-35.9,adult BMI 36.0-36.9,adult Bronchitis Chronic kidney disease, stage 3 Baseline creatinine is around 1.60. Chronic pain of right knee Colon cancer screening Color deficiency Constipation Cough Current use of buttermaker anticoagulation On dabigatran for stroke prophylaxis. Had previously been on warfarin. Degenerative joint disease of knee Diarrhea Diastolic dysfunction Echocardiogram in February 2019 demonstrated mild enlargement of the left ventricular cavity, ejection fraction of 55%, diastolic dysfunction, sigmoid hypertrophy of the septum, severe enlargement of the left atrium and mild enlargement of the right atrium, and [id number] mitral valve regurgitation. Diverticulitis (~2007) Diverticulitis with perforation and abscess treated with percutaneous abscess drainage an
[2024-05-13 15:03] VITALS: BMI 35.2
== END 2024-04-23 07:26 | disposition home or self-care (01) ==
LOC: ANHCSM 09:11
PROVIDERS: PCP Internal Medicine; Visit Provider Internal Medicine
DX: G47.33 Obstructive sleep apnea (adult) (pediatric) (principal); G47.10 Hypersomnia, unspecified; I51.89 Other ill-defined heart diseases; I50.9 Heart failure, unspecified; I48.91 Unspecified atrial fibrillation; J44.9 Chronic obstructive pulmonary disease, unspecified
CPT/HCPCS: 95811

== ENCOUNTER 2024-08-09 08:33 | Outpatient (CLI) | payer MEDICARE, SELFPAY ==
[2024-08-09 08:58] LABS: Basophils Percent Auto 0.4 % (0.2-1.2); Eosinophils Percent Auto 0.5 % (0-4.4); Hematocrit 44.9 % (42.0-52.0); Immature Granulocyte Absolute 0.04 K/mm3 (0.00-0.031); Immature Granulocyte Percent A 0.5 % (0-0.5); Lymphocytes Absolute Auto 2.22 K/mm3 (0.9-3.2); Mean Corpuscular HGB Conc 33.4 g/dl (32-36); Mean Corpuscular Hemoglobin 31.6 pg (26-34); Mean Corpuscular Volume 94.5 fl (80-100); Mean Platelet Volume 9.9 fl (7.4-10.4); Monocytes Percent Auto 12.2 % (2.6-8.5); Neutrophils Absolute Auto 4.9 K/mm3 (1.3-6.7); Neutrophils Percent Auto 59.4 % (45.5-73.1); Platelet Count Result 210 k/mm3 (150-375); Red Blood Count 4.75 M/mm3 (4.6-6.20); Red Cell Distribution Width 16.1 % (11.5-14.5); White Blood Count 8.2 K/mm3 (4.5-10.0)
[2024-08-09 09:16] LABS: Alanine Aminotransferase 17 U/L (6-50); Albumin Level 4.1 g/dL (3.5-5.1); Alkaline Phosphatase 69 U/L (38-126); Anion Gap 8 mmol/L (4-12); Aspartate Amino Transferase 25 U/L (17-59); Bilirubin,Total 0.8 mg/dL (0.2-1.3); Blood Urea Nitrogen 26 mg/dL (9-20); Calcium 9.6 mg/dL (8.4-10.2); Carbon Dioxide 28 mmol/L (22-30); Chloride 101 mmol/L (98-107); Cholesterol 121 mg/dL (0-200); Estimated Glomerular Filt Rate 48; Glucose 115 mg/dL (65-110); HDL Direct 32 mg/dL; Potassium 3.9 mmol/L (3.4-5.0); Sodium 137 mmol/L (137-145); Triglycerides 104 mg/dL (<150)
[2024-08-09 09:27] LABS: Hemoglobin A1C 6.2 % (<5.7); LDL Cholesterol Direct 70 mg/dL
== END 2024-08-09 08:34 | disposition home or self-care (01) ==
LOC: ANHLAB 08:39
PROVIDERS: PCP Internal Medicine; Visit Provider Internal Medicine
DX: R73.03 Prediabetes (principal); I10 Essential (primary) hypertension; E78.5 Hyperlipidemia, unspecified; I63.9 Cerebral infarction, unspecified
CPT/HCPCS: 36415; 80053; 80061; 83036; 85025

== ENCOUNTER 2025-03-10 10:47 | Outpatient (CLI) | payer MEDICARE, SELFPAY ==
[2025-03-10 13:50] LABS: Alanine Aminotransferase 24 U/L (6-50); Albumin Level 4.1 g/dL (3.5-5.1); Alkaline Phosphatase 85 U/L (38-126); Anion Gap 9 mmol/L (4-12); Aspartate Amino Transferase 60 U/L (17-59); Bilirubin,Total 0.9 mg/dL (0.2-1.3); Blood Urea Nitrogen 20 mg/dL (9-20); Calcium 10.2 mg/dL (8.4-10.2); Carbon Dioxide 32 mmol/L (22-30); Chloride 99 mmol/L (98-107); Cholesterol 129 mg/dL (0-200); Estimated Glomerular Filt Rate 54; Glucose 111 mg/dL (65-110); HDL Direct 31 mg/dL; Potassium 3.2 mmol/L (3.4-5.0); Sodium 140 mmol/L (137-145); Triglycerides 86 mg/dL (<150)
[2025-03-10 14:01] LABS: LDL Cholesterol Direct 65 mg/dL
[2025-03-10 14:06] LABS: Bilirubin Urine Negative (Negative); Blood Urine Negative (Negative); Color Urine Yellow (Yellow); Glucose Urine UA Negative (Negative); Ketones Urine Negative (Negative); Leukocyte Esterase Ur Negative LEU/UL (Negative); Nitrate Urine Negative (Negative); Protein Urine Negative (Negative); Specific Grav Ur 1.007 (1.001-1.035); Urobilinogen Urine 0.2 mg/dL (<2.0); pH Urine 7.5 (5.0-9.0)
[2025-03-10 14:10] LABS: Add Urine Microscopic? NO; Appearance Urine Clear (Clear)
== END 2025-03-10 10:48 | disposition home or self-care (01) ==
LOC: ANHGOSHLAB 10:48
PROVIDERS: PCP Internal Medicine; Visit Provider Internal Medicine
DX: I12.9 Hypertensive chronic kidney disease with stage 1 through stage 4 chronic kidney disease, or unspecified chronic kidney disease (principal); N18.30 Chronic kidney disease, stage 3 unspecified; E78.2 Mixed hyperlipidemia; R73.03 Prediabetes; Z79.899 Other long term (current) drug therapy
CPT/HCPCS: 36415; 80053; 80061; 81003; 83036

== ENCOUNTER 2025-04-02 12:57 | Outpatient (CLI) | payer MEDICARE, SELFPAY | END 2025-04-02 12:58 | disposition home or self-care (01) | LOC: ANHAUDASC 12:58 | PROVIDERS: PCP Internal Medicine; Visit Provider Internal Medicine | DX: H90.3 Sensorineural hearing loss, bilateral (principal); H93.13 Tinnitus, bilateral; H61.22 Impacted cerumen, left ear | CPT/HCPCS: 92557; 92567 ==

== ENCOUNTER 2025-05-22 09:11 | Inpatient (IN) | payer MEDICARE, SELFPAY ==
[2025-05-22] VITALS (43 sets, daily range): BP systolic 96–192; BP diastolic 52–130; PULSE 76–124; RESP 14–37; TEMP 36.7–36.8; O2SAT 5–100; BMI 34.6
--- NOTE | ~2025-05-22 | XR_ITS ---
EXAMINATION: XR chest 2V DATE: 05/22/2025 10:27 INDICATION: 3 weeks of cough TECHNIQUE: PA and lateral views of the chest were obtained. COMPARISON: Chest radiograph dated 05/18/2025 and 09/23/2020 FINDINGS: Chronic elevation the left hemidiaphragm. Mild streaky bibasilar opacities and favor atelectasis over pneumonia. No pleural effusion or pneumothorax. Mild cardiomegaly. Cholecystectomy clips in right up per quadrant. IMPRESSION: 1. Mild elevation of the left hemidiaphragm with mild streaky bibasilar opacities and favor atelectas is over pneumonia. Reviewed, dictated and finalized at location A. IMPRESSION: 1. Mild elevation of the left hemidiaphragm with mild streaky bibasilar opaciti es and favor atelectasis over pneumonia.
--- NOTE | 2025-05-22 09:24 | ECG_ITS ---
Test Date: 2025-05-22 09:27:37 Measurements Intervals Page Rate: 83 P: 0 WA: 0 QRS: -48 QRSD: 83 T: 58 QT: 367 QTc: 432 Interpretive Statements ATRIAL FIBRILLATION WITH ABERRANT CONDUCTION OR VENTRICULAR PREMATURE COMPLEXES ANTEROSEPTAL MYOCARDIAL INFARCTION , PROBABLY OLD Electronically Signed On 05-22-2025 11:07:54 CDT by Efren Moses D.O
--- NOTE | 2025-05-22 10:24 | ED.URI ---
HPI - URI/Sore Throat General Chief Complaint: Upper Respiratory Infection <Kayla Romero PA-C - Last Filed: 05/22/25 12:30> Stated Complaint: URI sx <Kayla Romero PA-C - Last Filed: 05/22/25 12:30> Time Seen by Provider: 05/22/25 10:00 <Kayla Romero PA-C - Last Filed: 05/22/25 12:30> History of Present Illness HPI Narrative: 89-year-old male with history of CHF, CKD, AFib on warfarin, hyperlipidemia, hypertension, MIREILLE on CPAP presents to the ED for cough x1 week. Patient contacted his PCP and had a chest x-ray and blood work performed. States chest x-ray was negative. He was started on cefuroxime by his PCP which he has been taking since Sunday without improvement. He reports increased using his albuterol inhaler and DuoNebs without improvement. He denies fever, chest pain, abdominal pain. He does feel more short of breath than normal. Patient is a former smoker. <Kayla Romero PA-C - Last Filed: 05/22/25 12:30> Related Data Home Medications: Home Medications ?Medication ?Instructions ?Recorded ?Confirmed ?Last Taken ?Type brinzolamide 1 %-brimonidine 0.2 % 1 drp ophthalmic (eye) BID 07/31/20 05/22/25 05/21/25 History eye drops,suspension (Simbrinza) krill oil 500 mg capsule 500 mg PO DAILY 07/31/20 05/22/25 05/21/25 History inulin 2 gram chewable tablet 2 g PO DAILY 08/03/21 05/22/25 05/21/25 History (Fiber Gummies) oxymetazoline 0.05 % nasal spray 2 spray intranasal Q12H PRN nasal 04/23/23 05/22/25 Unknown History (Vicks Sinex 12-Hour) congestion warfarin 1 mg tablet 1 mg PO 3XW 01/01/24 03/24/25 Unknown History guaifenesin 1,200 mg tablet, 1,200 mg PO DAILY PRN cough 04/08/24 05/22/25 05/21/25 History extended release 12 hr (Mucinex) aflibercept 8 mg/0.07 mL 8 mg intravitreal .13 every weeks 03/24/25 05/22/25 Unknown History intravitreal solution for injection (Eylea HD) atorvastatin 10 mg tablet 10 mg PO DAILY 03/24/25 05/22/25 05/21/25 History oeqqzzie-oqj- 250 mg-dha 90 1 cap PO DAILY 03/24/25 05/22/25 05/22/25 History mg-epa 160 xb-qtgg-isnl-zeax capsule (Ocuvite Adult 50 Plus) cyanocobalamin (vitamin B-12) 500 500 mcg PO BID 05/22/25 05/22/25 05/22/25 History mcg tablet (Vitamin B-12) <Kayla Romero PA-C - Last Filed: 05/22/25 12:30> Allergies/Adverse Reactions: Allergies Allergy/AdvReac Type Severity Reaction Status Date / Time Penicillins Allergy Severe Anaphylaxis Verified 05/22/25 14:01 <Kayla Romero PA-C - Last Filed: 05/22/25 12:30> Review of Systems Review of Systems: All systems reviewed & are unremarkable except as noted in HPI and below <Kayla Romero PA-C - Last Filed: 05/22/25 12:30> [facility] Past Medical History Medical History: Medical History MIREILLE on CPAP History of CVA (cerebrovascular accident) Microscopic hematuria Olecranon bursitis of left elbow Hypersomnolence Insomnia Constipation Overgrown toenails Pre-diabetes Macular degeneration BMI 36.0-36.9,adult Shortness of breath Other chronic pain Neck pain on right side Color deficiency Bronchitis Bloody stools Anxiety Chronic pain of right knee BMI 34.0-34.9,adult Diarrhea Colon cancer screening Osteoarthritis of right knee Degenerative joint disease of knee History of GI bleed Hx of deep venous thrombosis Personal history of COVID-19 Encounter for routine adult health examination with abnormal findings BMI 35.0-35.9,adult 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 Diastolic dysfunction Echocardiogram in February 2019 demonstrated mild enlargement of the left ventricular cavity, ejection fraction of 55%, diastolic dysfunction, sigmoid hypertrophy of the septum, severe enlargement of the left atrium and mild enlargement of the right atrium, and mquj-wq-fsaanobr mitral valve regurgitation. Essential hypertension Current use of mcc anticoagulation On dabigatran for stroke prophylaxis. Had previously been on warfarin. 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 Diverticulitis (~2007) Diverticulitis with perforation and abscess treated with percutaneous abscess drainage and antibiotics. Pneumonia Peripheral neuropathy Glaucoma Gout <Kayla Romero PA-C - Last Filed: 05/22/25 12:30> Surgical History Surgical History: Surgical History History of total right knee replacement Status post total right knee replacement History of tonsillectomy History of laparoscopic cholecystectomy (~10/30/19) History of laparoscopic appendectomy (~2009) History of bilateral cataract extraction History of right knee surgery Repair of meniscal tear. History of cardiac catheterization Without intervention. <Kayla Romero PA-C - Last Filed: 05/22/25 12:30> Family History Family History: Family History Mother Family history of cardiovascular disease Family history of heart disease in male family member before age 55 Father Cerebrovascular accident Family history of Alzheimer's disease <Kayla Romero PA-C - Last Filed: 05/22/25 12:30> Social History Social History: Social History Social History: Surrogate decision maker: Chikis Spicer, . Code status: Full code. Smoking packs per day: 1 Smoking cigarettes per day: 20.0 Years smoked: 10 Smoking pack-years: 10.00 Smoking status: Former smoker Tobacco type: cigarettes Second hand tobacco smoke exposure: No Smoking end date: 11/12/79 Alcohol intake: current Substance use: never Substance use type: does not use Do You Feel Safe in your Home?: Yes Lack of Transportation: No Lack of Food: Never True Current Housing: I Have Housing Concerned About Future Housing: No Difficulty Paying Gas/Electric Bills: No Difficulty Paying for Meds: No Currently Unemployed: No Education: Master's Degree or Higher Difficulty w/ Childcare or Family Care: No Living arrangements: with family Additional living arrangements comments: Resides in [place] with his . 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 Gender identity (if verbalized by the patient): Male Spiritual care concerns: No Agree to blood products: Yes <Kayla Romero PA-C - Last Filed: 05/22/25 12:30> Exam Narrative: GENERAL: Well-appearing, well-nourished, and in no acute distress. HEAD: Normocephalic, atraumatic. EYES: PERRLA and EOMI. ENT: Nares clear, no rhinorrhea or epistaxis. Mucous membranes moist. NECK: Supple. CHEST: Decreased lung sounds in the lower lung bishop, rhonchi and mild expiratory wheeze in the upper lung bishop. Actively coughing on exam. Satting 95% on room air and speaking in full sentences HEART: Regular rate and rhythm. No murmur heard. Normal peripheral pulses. ABDOMEN: Soft, nontender, nondistended, normal active bowel sounds. EXTREMITIES: Normal range of motion. No edema. SKIN: Warm, dry, no rash. NEURO: No focal deficits. Alert and oriented x3 <Kayla Romero PA-C - Last Filed: 05/22/25 12:30> Course GENERAL SERVICE OFFICER/PA Physician Supervision This visit was performed by both a physician and an APC. I performed all aspects of the MDM as documented. <Krishan Mckeon MD - Last Filed: 05/22/25 18:40> Vital Signs Vital signs: Vital Signs Temperature 98.1 F 05/22/25 09:21 Pulse Rate 86 05/22/25 09:21 Respiratory Rate 20 05/22/25 09:21 Blood Pressure 173/91 H 05/22/25 09:21 Pulse Oximetry 95 05/22/25 09:21 Oxygen Delivery Room Air 05/22/25 09:21 Temperature 98.2 F 05/22/25 15:51 Pulse Rate 111 H 05/22/25 18:00 Respiratory Rate 20 05/22/25 15:51 Blood Pressure 154/74 H 05/22/25 15:51 Pulse Oximetry 96 05/22/25 16:00 Oxygen Delivery Room Air 05/22/25 16:00 <Kayla Romero PA-C - Last Filed: 05/22/25 12:30> Vital Signs Temperature 98.1 F 05/22/25 09:21 Pulse Rate 86 05/22/25 09:21 Respiratory Rate 20 05/22/25 09:21 Blood Pressure 173/91 H 05/22/25 09:21 Pulse Oximetry 95 05/22/25 09:21 Oxygen Delivery Room Air 05/22/25 09:21 Temperature 98.2 F 05/22/25 15:51 Pulse Rate 111 H 05/22/25 18:00 Respiratory Rate 20 05/22/25 15:51 Blood Pressure 154/74 H 05/22/25 15:51 Pulse Oximetry 96 05/22/25 16:00 Oxygen Delivery Room Air 05/22/25 16:00 <Krishan Mckeon MD - Last Filed: 05/22/25 18:40> MDM - URI/Sore Throat MDM Narrative Medical decision making narrative: 89-year-old male with history of COPD, MIREILLE, hypertension, hyperlipidemia, AFib on Eliquis presents to the emergency department for cough and shortness of breath for the past week. See HPI for further history. Vitals with elevated blood pressure 173/91, otherwise unremarkable. Patient is satting 95% on room air in no respiratory distress. Exam is significant for the above. CBC without leukocytosis. Chemistries with mild hypokalemia of 3.3 which is been orally repleted. Magnesium low at 0.4 which is been intravenously repleted. BNP elevated at 735 but is normal when age adjusted, patient does not appear to be volume overloaded on exam. Lipase is within normal limits. Viral swabs are negative. Lactic is within normal limits. EKG shows atrial fibrillation with aberrant conduction or ventricular premature complexes, no ST elevations or significant depressions. Troponin was protocol in triage which is elevated to 0.051. Patient denies any chest pain. Chest x-ray shows mild elevation of the left hemidiaphragm with mild streaky bibasilar opacities and fever atelectasis over pneumonia. Patient updated on results. He was given DuoNebs, IV magnesium, Solu-Medrol and started on Rocephin and azithromycin for COPD exacerbation. Patient does have listed allergy to penicillins but is currently taking a cephalosporin and tolerating it well. Plan to admit to the hospitalist for further management and trending of troponins. Patient and are amenable to the plan. Discussed with hospitalist, Dr. Messer, who accepts admission. <Kayla Romero PA-C - Last Filed: 05/22/25 12:30> Lab Data Result diagrams: 05/22/25 10:15 05/22/25 10:15 <Kayla Romero PA-C - Last Filed: 05/22/25 12:30> Labs: Lab Results 05/22/25 05/22/25 Range/Units 10:15 10:52 WBC 8.8 (4.5-10.0) K/mm3 RBC 4.12 L (4.6-6.20) M/mm3 Hgb 12.7 L (14.0-18.0) g/dL Hct 39.3 L (42.0-52.0) % MCV 95.4 (80-100) fl MCH 30.8 (26-34) pg MCHC 32.3 (32-36) g/dl RDW 15.7 H (11.5-14.5) % Plt Count 205 (150-375) k/mm3 MPV 9.8 (7.4-10.4) fl Immature Gran % (Auto) 0.5 (0-0.5) % Neut % (Auto) 73.1 (45.5-73.1) % Lymph % (Auto) 13.2 L (18.3-44.2) % [place] % (Auto) 11.3 H (2.6-8.5) % Eos % (Auto) 1.7 (0-4.4) % Baso % (Auto) 0.2 (0.2-1.2) % Lymph # (Auto) 1.17 (0.9-3.2) K/mm3 [place] # (Auto) 1.0 H (0.1-0.6) K/mm3 Eos # (Auto) 0.2 (0-0.3) K/mm3 Baso # (Auto) 0.0 (0.0-0.1) K/mm3 Abs Immat Gran (auto) 0.04 H (0.00-0.031) K/mm3 Absolute Neuts (auto) 6.5 (1.3-6.7) K/mm3 Absolute Nucleated RBC 0.000 (0.0-0.012) K/mm3 Nucleated RBC % 0.0 (0.0-0.2) % PT 27.5 H (11.1-14.7) Seconds INR 2.7 APTT 48.4 H (22.3-36.8) Seconds Sodium 138 (137-145) mmol/L Potassium 3.3 L (3.4-5.0) mmol/L Chloride 106 (98-107) mmol/L Carbon Dioxide 23 (22-30) mmol/L Anion Gap 9 (4-12) mmol/L BUN 18 (9-20) mg/dL Creatinine 1.17 (0.7-1.3) mg/dL Estim Creat Clear Calc 43 ml/min Estimated GFR 59 (59 - ) Glucose 111 H (65-110) mg/dL Lactic Acid 1.8 (0.7-2.0) mmol/L Calcium 9.0 (8.4-10.2) mg/dL Magnesium 1.4 L (1.6-2.3) mg/dL Total Bilirubin 0.6 (0.2-1.3) mg/dL AST 39 (17-59) U/L ALT 23 (6-50) U/L Alkaline Phosphatase 75 (38-126) U/L Troponin I 0.051 H* (0.000-0.034) ng/mL NT-Pro-B Natriuret Pep 735 H (19.9-100) pg/mL Total Protein 7.2 (6.3-8.2) g/dL Albumin 3.8 (3.5-5.1) g/dL Lipase 91 (23-300) U/L Influenza A (RT-PCR) Negative (Negative) Influenza B (RT-PCR) Negative (Negative) RSV (RT-PCR) Negative (Negative) SARS-CoV-2 RNA (RT-PCR) Negative (Negative) <Kayla Romero PA-C - Last Filed: 05/22/25 12:30> Lab Results 05/22/25 05/22/25 Range/Units 10:15 10:52 WBC 8.8 (4.5-10.0) K/mm3 RBC 4.12 L (4.6-6.20) M/mm3 Hgb 12.7 L (14.0-18.0) g/dL Hct 39.3 L (42.0-52.0) % MCV 95.4 (80-100) fl MCH 30.8 (26-34) pg MCHC 32.3 (32-36) g/dl RDW 15.7 H (11.5-14.5) % Plt Count 205 (150-375) k/mm3 MPV 9.8 (7.4-10.4) fl Immature Gran % (Auto) 0.5 (0-0.5) % Neut % (Auto) 73.1 (45.5-73.1) % Lymph % (Auto) 13.2 L (18.3-44.2) % [place] % (Auto) 11.3 H (2.6-8.5) % Eos % (Auto) 1.7 (0-4.4) % Baso % (Auto) 0.2 (0.2-1.2) % Lymph # (Auto) 1.17 (0.9-3.2) K/mm3 [place] # (Auto) 1.0 H (0.1-0.6) K/mm3 Eos # (Auto) 0.2 (0-0.3) K/mm3 Baso # (Auto) 0.0 (0.0-0.1) K/mm3 Abs Immat Gran (auto) 0.04 H (0.00-0.031) K/mm3 Absolute Neuts (auto) 6.5 (1.3-6.7) K/mm3 Absolute Nucleated RBC 0.000 (0.0-0.012) K/mm3 Nucleated RBC % 0.0 (0.0-0.2) % PT 27.5 H (11.1-14.7) Seconds INR 2.7 APTT 48.4 H (22.3-36.8) Seconds Sodium 138 (137-145) mmol/L Potassium 3.3 L (3.4-5.0) mmol/L Chloride 106 (98-107) mmol/L Carbon Dioxide 23 (22-30) mmol/L Anion Gap 9 (4-12) mmol/L BUN 18 (9-20) mg/dL Creatinine 1.17 (0.7-1.3) mg/dL Estim Creat Clear Calc 43 ml/min Estimated GFR 59 (59 - ) Glucose 111 H (65-110) mg/dL Lactic Acid 1.8 (0.7-2.0) mmol/L Calcium 9.0 (8.4-10.2) mg/dL Magnesium 1.4 L (1.6-2.3) mg/dL Total Bilirubin 0.6 (0.2-1.3) mg/dL AST 39 (17-59) U/L ALT 23 (6-50) U/L Alkaline Phosphatase 75 (38-126) U/L Troponin I 0.051 H* (0.000-0.034) ng/mL NT-Pro-B Natriuret Pep 735 H (19.9-100) pg/mL Total Protein 7.2 (6.3-8.2) g/dL Albumin 3.8 (3.5-5.1) g/dL Lipase 91 (23-300) U/L Influenza A (RT-PCR) Negative (Negative) Influenza B (RT-PCR) Negative (Negative) RSV (RT-PCR) Negative (Negative) SARS-CoV-2 RNA (RT-PCR) Negative (Negative) <Krishan Mckeon MD - Last Filed: 05/22/25 18:40> Discharge Plan Discharge Clinical Impression: Acute exacerbation of chronic obstructive pulmonary disease, Hypomagnesemia, Acute hypokalemia, Elevated troponin <Kayla Romero PA-C - Last Filed: 05/22/25 12:30> Patient Disposition: Still a Patient <Kayla Romero PA-C - Last Filed: 05/22/25 12:30> Condition: Stable <Kayla Romero PA-C - Last Filed: 05/22/25 12:30>
[2025-05-22 10:27] LABS: Hematocrit 39.3 % (42.0-52.0); Hemoglobin 12.7 g/dL (14.0-18.0); Immature Granulocyte Percent A 0.5 % (0-0.5); Lymphocytes Absolute Auto 1.17 K/mm3 (0.9-3.2); Mean Corpuscular HGB Conc 32.3 g/dl (32-36); Mean Corpuscular Hemoglobin 30.8 pg (26-34); Mean Corpuscular Volume 95.4 fl (80-100); Nucleated Red Blood Cells Absolute Auto 0.000 K/mm3 (0.0-0.012); Nucleated Red Blood Cells Perc 0.0 % (0.0-0.2); Platelet Count Result 205 k/mm3 (150-375); Red Blood Count 4.12 M/mm3 (4.6-6.20); White Blood Count 8.8 K/mm3 (4.5-10.0)
[2025-05-22 10:40] LABS: INR 2.7; Prothrombin Time 27.5 Seconds (11.1-14.7)
[2025-05-22 10:41] LABS: Partial Thromboplastin Time 48.4 Seconds (22.3-36.8)
[2025-05-22 10:51] LABS: Alanine Aminotransferase 23 U/L (6-50); Albumin Level 3.8 g/dL (3.5-5.1); Alkaline Phosphatase 75 U/L (38-126); Anion Gap 9 mmol/L (4-12); Aspartate Amino Transferase 39 U/L (17-59); Bilirubin,Total 0.6 mg/dL (0.2-1.3); Blood Urea Nitrogen 18 mg/dL (9-20); Calcium 9.0 mg/dL (8.4-10.2); Carbon Dioxide 23 mmol/L (22-30); Chloride 106 mmol/L (98-107); Estimated CRCL calculation 43 ml/min; Estimated Glomerular Filt Rate 59; Glucose 111 mg/dL (65-110); Lipase 91 U/L (23-300); Potassium 3.3 mmol/L (3.4-5.0); Sodium 138 mmol/L (137-145); Total Protein 7.2 g/dL (6.3-8.2)
[2025-05-22 11:04] LABS: Troponin I 0.051 ng/mL (0.000-0.034)
[2025-05-22] MEDS: POTASSIUM CHLORIDE 20 MEQ PACKET (FOR LIQUID) PO (11:21)
[2025-05-22] MEDS: MAGNESIUM SULF 2 GM/WATER 50ML 2 GM/50 ML BAG IVPB (11:21)
[2025-05-22] MEDS: IPRATROPIUM 0.5 MG/ALBUTEROL SULFATE 2.5 MG AMPUL.NEB 3 ML INHALATION ×5 (11:29→19:42)
[2025-05-22 11:30] LABS: Magnesium 1.4 mg/dL (1.6-2.3)
[2025-05-22 11:35] LABS: NT Pro B Type Natriuretic Pept 735 pg/mL (19.9-100)
[2025-05-22 11:37] LABS: Influenza A QL RT-PCR Negative (Negative); Influenza B QL RT-PCR Negative (Negative); RSV RNA, RT-PCR Negative (Negative); SARS-CoV-2 RNA PCR Negative (Negative)
[2025-05-22] MEDS: cefTRIAXone 1 GM in SODIUM CHLORIDE 0.9% IV 50 ML 100 ML IVPB (12:08)
[2025-05-22] MEDS: AZITHROMYCIN IV 500 MG in SODIUM CHLORIDE 0.9% IV 250 ML IVPB (12:09)
--- NOTE | 2025-05-22 14:41 | ADMGEN ---
This patient, Gigi Richardson, was admitted to IMU Room 213-01. Patient/family oriented to hospital policies and general routines including ID bracelet, bed and alarms, visiting hours, pain management, procedures, bathroom and other care routines, personal items, smoking policy, room service/diet, and visiting hours. Information on how to activate the Rapid Response Team has been discussed. Patient/Family are encouraged to report perceived risks to care and to ask questions if they do not understand what they are told or what they should do. Patient is A&Ox4. resting on side of bed with at bedside. Voice no complaints or concerns at this time. Denies pain at this time. Head to toe assessment completed and charted. Call light and personal items in reach. Bed in locked position with alarm on. Will continue to monitor. Ender Davey RN
--- NOTE | 2025-05-22 14:45 | P.HP_ITS ---
H&P: HPI History of Present Illness Date/Time: 05/22/25 14:45 Chief Complaint: Cough and shortness of breath Narrative: 89-year-old male past medical history of MIREILLE, history of DVT, chronic kidney disease, CHF, and hyperlipidemia presents the hospital with shortness of breath and cough for 1 week. He originally went to his PCP which started him on cefuroxime, patient has been taking a antibiotics are started since Sunday without any improvements so he presents to the hospital. Patient complains of cough, shortness of breath and thick sputum that he is unable to get up. He denies fever chills nausea or vomiting. A work in the ED shows hemoglobin 12.7, INR of 2.7, potassium of 3.3, magnesium 1.4, troponin of 0.051, BNP of 735, influenza A/B, RSV, COVID negative. Chest x-ray shows Mild elevation of the left hemidiaphragm with mild streaky bibasilar opacities and favor atelectasis over pneumonia. EKG shows AFib at 83. Patient given Solu-Medrol, potassium and magnesium, azithromycin and Rocephin in the ED Review of Systems Review of Systems: 12 systems were reviewed and are negativ e except for as per HPI. ON LICENSE OF [facility] Past Medical History Medical History MIREILLE on CPAP History of CVA (cerebrovascular accident) Microscopic hematuria Olecranon bursitis of left elbow Hypersomnolence Insomnia Constipation Overgrown toenails Pre-diabetes Macular degeneration BMI 36.0-36.9,adult Shortness of breath Other chronic pain Neck pain on right side Color deficiency Bronchitis Bloody stools Anxiety Chronic pain of right knee BMI 34.0-34.9,adult Diarrhea Colon cancer screening Osteoarthritis of right knee Degenerative joint disease of knee History of GI bleed Hx of deep venous thrombosis Personal history of COVID-19 Encounter for routine adult health examination with abnormal findings BMI 35.0-35.9,adult Left knee [facility] senior living current use of anticoagulant Leukocytosis URI (upper respiratory infection) Cough BMI 32.0-32.9,adult Hospital discharge follow-up Benign prostatic hyperplasia Persistent atrial fibrillation Chronic kidney disease, stage 3 Baseline creatinine is around 1.60. Diastolic dysfunction Echocardiogram in February 2019 demonstrated mild enlargement of the left ventricular cavity, ejection fraction of 55%, diastolic dysfunction, sigmoid hypertrophy of the septum, severe enlargement of the left atrium and mild enlargement of the right atrium, and [id number] mitral valve regurgitation. Essential hypertension Current use of care home anticoagulation On dabigatran for stroke prophylaxis. Had previously been on warfarin. 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 Diverticulitis (~2007) Diverticulitis with perforation and abscess treated with percutaneous abscess drainage and antibiotics. Pneumonia Peripheral neuropathy Glaucoma Gout Surgical History Surgical History History of total right knee replacement Status post total right knee replacement History of tonsillectomy History of laparoscopic cholecystectomy (~10/30/19) History of laparoscopic appendectomy (~2009) History of bilateral cataract extraction History of right knee surgery Repair of meniscal tear. History of cardiac catheterization Without intervention. Family History Family History Mother Family history of cardiovascular disease Family history of heart disease in male family member before age 55 Father Cerebrovascular accident Family history of Alzheimer's disease Social History Social History Social History: Surrogate decision maker: Chikis Spicer, . Code status: Full code. Smoking packs per day: 1 Smoking cigarettes per day: 20.0 Years smoked: 10 Smoking pack-years: 10.00 Smoking status: Former smoker Tobacco type: cigarettes Second hand tobacco smoke exposure: No Smoking end date: 11/12/79 Alcohol intake: current Substance use: never Substance use type: does not use Do You Feel Safe in your Home?: Yes Lack of Transportation: No Lack of Food: Never True Current Housing: I Have Housing Concerned About Future Housing: No Difficulty Paying Gas/Electric Bills: No Difficulty Paying for Meds: No Currently Unemployed: No Education: Master's Degree or Higher Difficulty w/ Childcare or Family Care: No Living arrangements: with family Additional living arrangements comments: Resides in [place] with his . 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 Gender identity (if verbalized by the patient): Male Spiritual care concerns: No Agree to blood products: Yes Meds Home Medications and Allergies Home Medications ?Medication ?Instructions ?Recorded ?Confirmed ?Type brinzolamide 1 %-brimonidine 0.2 % 1 drp ophthalmic (eye) BID 07/31/20 05/22/25 History eye drops,suspension (Simbrinza) krill oil 500 mg capsule 500 mg PO DAILY 07/31/20 05/22/25 History inulin 2 gram chewable tablet 2 g PO DAILY 08/03/21 05/22/25 History (Fiber Gummies) oxymetazoline 0.05 % nasal spray 2 spray intranasal Q12H PRN nasal 04/23/23 05/22/25 History (Vicks Sinex 12-Hour) congestion guaifenesin 1,200 mg tablet, 1,200 mg PO DAILY PRN cough 04/08/24 05/22/25 History extended release 12 hr (Mucinex) albuterol sulfate 2.5 mg/3 mL 2.5 mg (3 mL) inhalation Q4-6H PRN 04/14/24 05/22/25 Rx (0.083 %) solution for nebulization shortness of breath or wheezing #90 mL montelukast 10 mg tablet See Rx Instructions .Route 10/13/24 05/22/25 Rx .COMPLEX #90 tabs finasteride 5 mg tablet See Rx Instructions .Route 12/08/24 05/22/25 Rx .COMPLEX #90 tabs metoprolol succinate 25 mg See Rx Instructions .Route 12/16/24 05/22/25 Rx tablet,extended release 24 hr .COMPLEX #90 tabs trazodone 50 mg tablet See Rx Instructions PO QHS #60 tabs 12/22/24 05/22/25 Rx allopurinol 300 mg tablet See Rx Instructions .Route 02/02/25 05/22/25 Rx .COMPLEX #90 tabs furosemide 20 mg tablet See Rx Instructions .Route 02/02/25 05/22/25 Rx .COMPLEX #90 tabs pantoprazole 40 mg tablet,delayed See Rx Instructions .Route 02/02/25 05/22/25 Rx release .COMPLEX #90 tabs valsartan 80 mg tablet 80 mg PO DAILY #90 tabs 03/12/25 05/22/25 Rx aflibercept 8 mg/0.07 mL 8 mg intravitreal .13 every weeks 03/24/25 05/22/25 History intravitreal solution for injection (Eylea HD) atorvastatin 10 mg tablet 10 mg PO .QOD at HS 03/24/25 05/22/25 History [id number] 250 mg-dha 90 1 cap PO DAILY 03/24/25 05/22/25 History mg-epa 160 ku-yezc-ipjb-zeax capsule (Ocuvite Adult 50 Plus) spironolactone 25 mg tablet See Rx Instructions .Route 04/08/25 05/22/25 Rx .COMPLEX #90 tabs fluticasone fur. 100 mcg-umeclid See Rx Instructions .Route 05/04/25 05/22/25 Rx 62.5 mcg-vilant 25 mcg .COMPLEX #60 ea inhalat.powder (Trelegy Ellipta) albuterol sulfate 90 mcg/actuation See Rx Instructions .Route 05/18/25 05/22/25 Rx aerosol inhaler .COMPLEX PRN COPD/Asthma #9 grams cefuroxime axetil 500 mg tablet 500 mg PO Q12H #20 tabs 05/18/25 05/22/25 Rx cyanocobalamin (vitamin B-12) 500 500 mcg PO BID 05/22/25 05/22/25 History mcg tablet (Vitamin B-12) warfarin 3 mg tablet 3 mg PO .qod 05/22/25 05/22/25 History warfarin 4 mg tablet 4 mg PO .qod 05/22/25 05/22/25 History warfarin 5 mg tablet 5 mg PO QPM PRN .Low INR. Dosing 05/22/25 05/22/25 History is determined by Dr. Pickett. Allergies Allergy/AdvReac Type Severity Reaction Status Date / Time Penicillins Allergy Severe Anaphylaxis Verified 05/22/25 14:01 Vital Signs Vital Signs - 24 hr 05/22/25 09:21 05/22/25 09:50 05/22/25 09:51 Temperature 98.1 F Pulse Rate 86 104 H 98 Respiratory Rate 20 23 H 20 Blood Pressure 173/91 H 190/104 H Pulse Oximetry 95 96 5 L Oxygen Delivery Room Air 05/22/25 09:52 05/22/25 10:00 05/22/25 10:01 Temperature Pulse Rate 86 101 H 95 Respiratory Rate 22 H 21 H 21 H Blood Pressure 192/104 H 166/130 H Pulse Oximetry 96 97 Oxygen Delivery 05/22/25 10:29 05/22/25 10:30 05/22/25 10:45 Temperature Pulse Rate 96 Respiratory Rate 20 20 Blood Pressure 165/103 H Pulse Oximetry 93 94 Oxygen Delivery 05/22/25 10:51 05/22/25 11:00 05/22/25 11:01 Temperature Pulse Rate 93 104 H 96 Respiratory Rate 19 20 18 Blood Pressure 147/97 H 165/88 H Pulse Oximetry 94 95 91 Oxygen Delivery 05/22/25 11:15 05/22/25 11:17 05/22/25 11:18 Temperature Pulse Rate 112 H 111 H 115 H Respiratory Rate 21 H 15 37 H Blood Pressure 165/103 H Pulse Oximetry 93 96 Oxygen Delivery 05/22/25 11:30 05/22/25 11:30 05/22/25 11:31 Temperature Pulse Rate 88 86 89 Respiratory Rate 20 15 15 Blood Pressure 139/76 Pulse Oximetry 95 91 Oxygen Delivery 05/22/25 11:35 05/22/25 12:10 05/22/25 12:15 Temperature Pulse Rate 101 H 96 Respiratory Rate 20 18 Blood Pressure Pulse Oximetry 94 99 100 Oxygen Delivery Room Air 05/22/25 12:16 05/22/25 12:30 05/22/25 12:31 Temperature Pulse Rate 105 H 97 120 H Respiratory Rate 17 22 H 23 H Blood Pressure 145/69 H 137/81 Pulse Oximetry 98 99 99 Oxygen Delivery 05/22/25 12:38 05/22/25 12:45 05/22/25 12:47 Temperature Pulse Rate 98 106 H 96 Respiratory Rate 24 H 23 H 14 Blood Pressure 96/52 L Pulse Oximetry 93 95 Oxygen Delivery 05/22/25 13:00 05/22/25 13:01 05/22/25 13:15 Temperature Pulse Rate 98 97 109 H Respiratory Rate 22 H 21 H 27 H Blood Pressure 138/80 Pulse Oximetry 94 94 93 Oxygen Delivery 05/22/25 13:16 05/22/25 13:30 05/22/25 14:00 Temperature Pulse Rate 93 94 113 H Respiratory Rate 27 H 22 H Blood Pressure 137/99 H Pulse Oximetry 91 Oxygen Delivery 05/22/25 14:16 Temperature 98.3 F Pulse Rate 103 H Respiratory Rate 22 H Blood Pressure 148/86 H Pulse Oximetry 93 Oxygen Delivery Exam Narrative: General: well appearing, appears stated age. HEENT: normocephalic, atraumatic. Mucous membranes moist. EOMI, PERRLA, bilateral sclera anicteric, no conjunctival injection. Neck supple without JVD, lymphadenopathy, or bruit. Respiratory: Wheezing to ascultation bilaterally. No rales/rhonic/wheezes. Cardiovascular: Irregular rate and rhythm, normal S1-S2 upon ascultation. No murmurs, rubs, or clicks. PMI is nondisplaced, capillary refill less than 3 second. Abdomen: Soft, round, no pulsatile masses, nondistended and nontender. No rebound, no guarding. No CVA tenderness, no hepatosplenomegaly. Bowel sounds present to all four quadrants. No high pitch or tinkling sounds, resonant to percussion. Extremities: No cyanosis, clubbing, or edema present. Pulses are palpable 2/2. Active ROM to all four extremities. Neuro: Alert and orientated x 4. PERRLA. Cranial nerves 2-12 intact without focal deficit. Skin: Warm, dry, and intact, without rash, erythema, or lesion. Psych: pleasant, cooperative, normal speech, normal affect, no hallucinations, no dysarthia AFib on the monitor H&P: Results Labs Labs: Short CBC 05/22/25 Range/Units 10:15 WBC 8.8 (4.5-10.0) K/mm3 Hgb 12.7 L (14.0-18.0) g/dL Hct 39.3 L (42.0-52.0) % Plt Count 205 (150-375) k/mm3 BMP 05/22/25 10:15 Sodium 138 Potassium 3.3 L Chloride 106 Carbon Dioxide 23 BUN 18 Creatinine 1.17 Glucose 111 H Calcium 9.0 Cardiac Enzymes 05/22/25 Range/Units 10:15 Troponin I 0.051 H* (0.000-0.034) ng/mL Liver Function 05/22/25 Range/Units 10:15 Total Bilirubin 0.6 (0.2-1.3) mg/dL AST 39 (17-59) U/L ALT 23 (6-50) U/L Alkaline Phosphatase 75 (38-126) U/L Albumin 3.8 (3.5-5.1) g/dL Assessment and Plan Assessment and plan (1) Acute exacerbation of chronic obstructive pulmonary disease: Code(s): J44.1 - Chronic obstructive pulmonary disease with (acute) exacerbation Status: Acute Assessment and Plan: Walter Guaifenesin Legionella pending Pneumococcal pending Blood cultures pending Azithromycin and Rocephin for pneumonia given in the ED, azithromycin change doxy due to patient being on warfarin Solu-Medrol (2) Elevated troponin: Code(s): R79.89 - Other specified abnormal findings of blood chemistry Status: Acute Assessment and Plan: Troponins flat, patient denies chest pain likely due to hypoxia EKG as needed (3) Afib: Qualifiers: Atrial fibrillation type: longstanding persistent Qualified Code(s): I48.11 - Longstanding persistent atrial fibrillation Code(s): I48.91 - Unspecified atrial fibrillation Status: Chronic Assessment and Plan: Patient AFib 120s after albuterol will switch to Xopenex Continue home metoprolol Telemetry monitoring Continue warfarin INR in a.m. (4) Essential hypertension: Code(s): I10 - Essential (primary) hypertension Status: Acute Assessment and Plan: Continue valsartan Continue diuretics (5) Diastolic dysfunction: Code(s): I51.89 - Other ill-defined heart diseases Status: Acute Assessment and Plan: Continue diuretic Continue metoprolol (6) Hyperlipidemia: Qualifiers: Hyperlipidemia type: mixed hyperlipidemia Qualified Code(s): E78.2 - Mixed hyperlipidemia Code(s): E78.5 - Hyperlipidemia, unspecified Status: Acute Assessment and Plan: Continue statin (7) Chronic kidney disease, stage 3: Qualifiers: Chronic kidney disease stage 3 subtype: unspecified whether 3a or 3b Qualified Code(s): N18.30 - Chronic kidney disease, stage 3 unspecified Code(s): N18.3 - Chronic kidney disease, stage 3 (moderate) Status: Acute Assessment and Plan: Daily BMP Quality VTE Prophylaxis VTE prophylaxis: mechanical ordered and pharmacologic ordered Hospitalist MIPS Advance Care Plan I have confirmed that the patient's Advanced Care Plan is present, code status is documented, or surrogate decision maker is listed in patient medical record.: Yes Medication Reconciliation I have utilized all available resources to obtain, update and review the patients current medications (includes all prescriptions, OTC, herbals, cannabis, and nutritional supplements).: Yes
[2025-05-22 16:15] LABS: Troponin I 0.051 ng/mL (0.000-0.034)
[2025-05-22 19:55] LABS: Troponin I 0.047 ng/mL (0.000-0.034)
[2025-05-22] MEDS: guaiFENesin 12 HR 600 MG TABCR 1200 MG PO (20:42)
[2025-05-22] MEDS: MONTELUKAST SODIUM 10 MG TABLET BY MOUTH (20:42)
[2025-05-22] MEDS: SPIRONOLACTONE 25 MG TABLET BY MOUTH (20:43)
[2025-05-22] MEDS: WARFARIN (*PBKC) 4 MG TABLET PO (23:12)
[2025-05-23] VITALS (23 sets, daily range): BP systolic 106–152; BP diastolic 53–89; PULSE 79–100; RESP 18–24; TEMP 36.3–37; O2SAT 92–98
[2025-05-23 04:33] LABS: Hematocrit 35.4 % (42.0-52.0); Hemoglobin 11.5 g/dL (14.0-18.0); Immature Granulocyte Percent A 0.5 % (0-0.5); Lymphocytes Absolute Auto 0.57 K/mm3 (0.9-3.2); Mean Corpuscular HGB Conc 32.5 g/dl (32-36); Mean Corpuscular Hemoglobin 31.3 pg (26-34); Mean Corpuscular Volume 96.5 fl (80-100); Nucleated Red Blood Cells Absolute Auto 0.000 K/mm3 (0.0-0.012); Nucleated Red Blood Cells Perc 0.0 % (0.0-0.2); Platelet Count Result 181 k/mm3 (150-375); Red Blood Count 3.67 M/mm3 (4.6-6.20); White Blood Count 12.9 K/mm3 (4.5-10.0)
[2025-05-23 04:50] LABS: INR 3.1; Prothrombin Time 30.7 Seconds (11.1-14.7)
[2025-05-23 05:17] LABS: Anion Gap 9 mmol/L (4-12); Blood Urea Nitrogen 18 mg/dL (9-20); Calcium 8.6 mg/dL (8.4-10.2); Carbon Dioxide 22 mmol/L (22-30); Chloride 105 mmol/L (98-107); Estimated CRCL calculation 53 ml/min; Estimated Glomerular Filt Rate > 60; Glucose 179 mg/dL (65-110); Potassium 3.6 mmol/L (3.4-5.0); Sodium 136 mmol/L (137-145)
--- NOTE | 2025-05-23 08:17 | PCRCNOTE ---
RT arrived in patient room to administer his morning breathing treatments, patient stated he had already taken his morning Trelegy inhaler, he brought his in from home. Patient states he will send his inhaler home with visitor, and will receive the [facility] Trelegy inhaler tomorrow.
--- NOTE | 2025-05-23 08:45 | PM.IMPN ---
Progress Note: A&P Assessment and Plan (1) Acute exacerbation of chronic obstructive pulmonary disease: Code(s): J44.1 - Chronic obstructive pulmonary disease with (acute) exacerbation Status: Acute (2) Elevated troponin: Code(s): R79.89 - Other specified abnormal findings of blood chemistry Status: Acute (3) Afib: Qualifiers: Atrial fibrillation type: longstanding persistent Qualified Code(s): I48.11 - Longstanding persistent atrial fibrillation Code(s): I48.91 - Unspecified atrial fibrillation Status: Chronic (4) Essential hypertension: Code(s): I10 - Essential (primary) hypertension Status: Acute (5) Diastolic dysfunction: Code(s): I51.89 - Other ill-defined heart diseases Status: Acute (6) Hyperlipidemia: Qualifiers: Hyperlipidemia type: mixed hyperlipidemia Qualified Code(s): E78.2 - Mixed hyperlipidemia Code(s): E78.5 - Hyperlipidemia, unspecified Status: Acute (7) Chronic kidney disease, stage 3: Qualifiers: Chronic kidney disease stage 3 subtype: unspecified whether 3a or 3b Qualified Code(s): N18.30 - Chronic kidney disease, stage 3 unspecified Code(s): N18.3 - Chronic kidney disease, stage 3 (moderate) Status: Acute Plan 89-year-old male past medical history of MIREILLE, history of DVT, chronic kidney disease, CHF, and hyperlipidemia presents the hospital with shortness of breath and cough for 1 week. He originally went to his PCP which started him on cefuroxime, patient has been taking a antibiotics are started since Sunday without any improvements so he presents to the hospital. Patient complains of cough, shortness of breath and thick sputum that he is unable to get up. He denies fever chills nausea or vomiting. In the ED his vitals were stable. Laboratory workup showed Hemoglobin 12.7, INR of 2.7, potassium of 3.3, magnesium 1.4, troponin of 0.051, BNP of 735, influenza A/B, RSV, COVID negative. Chest x-ray shows Mild elevation of the left hemidiaphragm with mild streaky bibasilar opacities and favor atelectasis over pneumonia. EKG shows AFib at 83. Patient given Solu-Medrol, potassium and magnesium, azithromycin and Rocephin in the ED COPD exacerbation treated with steroid in the ER. Now switched to prednisone Pneumonia mild streaky bibasilar opacities on chest x-ray mild leukocytosis Elevated troponin flat trend AFib with mild RVR with albuterol switched to Xopenex. On anticoagulation with warfarin with therapeutic INR Hypertension Diastolic dysfunction Hyperlipidemia CKD stage 3 MIRE[place]LE on CPAP History of CVA History of DVT Long-term anticoagulant use History of GI bleed Peripheral neuropathy Gout DVT prophylaxis on warfarin Code status full code Subjective Date/time seen: 05/23/25 08:45 Interval history: Chart reviewed. Feels better. Still has some cough. No chest pain. Review of Systems Review of Systems: All systems reviewed & are unremarkable except as noted in HPI and below Exam Narrative: General: well appearing, appears stated age. HEENT: normocephalic, atraumatic. Mucous membranes moist. EOMI Respiratory: No wheezes no respiratory distress clear to auscultation Cardiovascular: Irregular rate and AFib in rhythm, normal S1-S2 upon ascultation. No murmurs, rubs, or clicks. Abdomen: Soft, round, no pulsatile masses, nondistended and nontender. No rebound, no guarding. Extremities: No cyanosis, clubbing, or edema present. Pulses are palpable 2/2. Active ROM to all four extremities. Neuro: Alert and orientated x 4. PERRLA. Cranial nerves 2-12 intact without focal deficit. Skin: Warm, dry, and intact, without rash, erythema, or lesion. Psych: pleasant, cooperative, normal speech, normal affect, no hallucinations, no dysarthia Objective Data Vital Signs Vital Signs: Vital Signs - 24 hr 05/22/25 09:21 05/22/25 09:50 05/22/25 09:51 Temperature 98.1 F Pulse Rate 86 104 H 98 Respiratory Rate 20 23 H 20 Blood Pressure 173/91 H 190/104 H Pulse Oximetry 95 96 5 L Oxygen Delivery Room Air 05/22/25 09:52 05/22/25 10:00 05/22/25 10:01 Temperature Pulse Rate 86 101 H 95 Respiratory Rate 22 H 21 H 21 H Blood Pressure 192/104 H 166/130 H Pulse Oximetry 96 97 Oxygen Delivery 05/22/25 10:29 05/22/25 10:30 05/22/25 10:45 Temperature Pulse Rate 96 Respiratory Rate 20 20 Blood Pressure 165/103 H Pulse Oximetry 93 94 Oxygen Delivery 05/22/25 10:51 05/22/25 11:00 05/22/25 11:01 Temperature Pulse Rate 93 104 H 96 Respiratory Rate 19 20 18 Blood Pressure 147/97 H 165/88 H Pulse Oximetry 94 95 91 Oxygen Delivery 05/22/25 11:15 05/22/25 11:17 05/22/25 11:18 Temperature Pulse Rate 112 H 111 H 115 H Respiratory Rate 21 H 15 37 H Blood Pressure 165/103 H Pulse Oximetry 93 96 Oxygen Delivery 05/22/25 11:30 05/22/25 11:30 05/22/25 11:31 Temperature Pulse Rate 88 86 89 Respiratory Rate 20 15 15 Blood Pressure 139/76 Pulse Oximetry 95 91 Oxygen Delivery 05/22/25 11:35 05/22/25 12:10 05/22/25 12:15 Temperature Pulse Rate 101 H 96 Respiratory Rate 20 18 Blood Pressure Pulse Oximetry 94 99 100 Oxygen Delivery Room Air 05/22/25 12:16 05/22/25 12:30 05/22/25 12:31 Temperature Pulse Rate 105 H 97 120 H Respiratory Rate 17 22 H 23 H Blood Pressure 145/69 H 137/81 Pulse Oximetry 98 99 99 Oxygen Delivery 05/22/25 12:38 05/22/25 12:45 05/22/25 12:47 Temperature Pulse Rate 98 106 H 96 Respiratory Rate 24 H 23 H 14 Blood Pressure 96/52 L Pulse Oximetry 93 95 Oxygen Delivery 05/22/25 13:00 05/22/25 13:01 05/22/25 13:15 Temperature Pulse Rate 98 97 109 H Respiratory Rate 22 H 21 H 27 H Blood Pressure 138/80 Pulse Oximetry 94 94 93 Oxygen Delivery 05/22/25 13:16 05/22/25 13:30 05/22/25 14:00 Temperature Pulse Rate 93 94 113 H Respiratory Rate 27 H 22 H Blood Pressure 137/99 H Pulse Oximetry 91 Oxygen Delivery 05/22/25 14:16 05/22/25 15:10 05/22/25 15:10 Temperature 98.3 F Pulse Rate 103 H 114 H 114 H Respiratory Rate 22 H 20 20 Blood Pressure 148/86 H Pulse Oximetry 93 97 Oxygen Delivery Room Air 05/22/25 15:10 05/22/25 15:51 05/22/25 16:00 Temperature 98.2 F Pulse Rate 102 H 102 H 105 H Respiratory Rate 20 20 Blood Pressure 154/74 H Pulse Oximetry 96 Oxygen Delivery 05/22/25 16:00 05/22/25 18:00 05/22/25 19:42 Temperature Pulse Rate 111 H Respiratory Rate Blood Pressure Pulse Oximetry 96 98 Oxygen Delivery Room Air Room Air 05/22/25 19:42 05/22/25 19:51 05/22/25 20:00 Temperature 98.1 F Pulse Rate 76 80 124 H Respiratory Rate 20 20 20 Blood Pressure 147/95 H Pulse Oximetry 94 Oxygen Delivery 05/22/25 20:00 05/22/25 20:08 05/22/25 22:00 Temperature Pulse Rate 111 H 124 H 115 H Respiratory Rate 20 Blood Pressure Pulse Oximetry 94 Oxygen Delivery Room Air 05/22/25 23:16 05/23/25 00:00 05/23/25 00:00 Temperature 98.6 F Pulse Rate 90 90 92 Respiratory Rate 18 18 Blood Pressure 106/53 L Pulse Oximetry 93 93 Oxygen Delivery Room Air 05/23/25 02:00 05/23/25 02:12 05/23/25 02:20 Temperature Pulse Rate 95 88 84 Respiratory Rate 24 H 20 Blood Pressure Pulse Oximetry Oxygen Delivery 05/23/25 04:00 05/23/25 04:00 05/23/25 05:20 Temperature 97.8 F Pulse Rate 79 90 79 Respiratory Rate 18 18 Blood Pressure 121/62 Pulse Oximetry 98 98 Oxygen Delivery Room Air 05/23/25 06:00 05/23/25 07:44 05/23/25 08:13 Temperature 97.5 F L Pulse Rate 85 80 94 Respiratory Rate 21 H 20 Blood Pressure 130/64 Pulse Oximetry 92 Oxygen Delivery 05/23/25 08:15 Temperature Pulse Rate Respiratory Rate Blood Pressure Pulse Oximetry 97 Oxygen Delivery Room Air Intake/Output Intake/Output: Intake & Output 05/20/25 05/21/25 05/22/25 05/23/25 23:59 23:59 23:59 23:59 Intake Total 990 400 Output Total 690 350 Balance 300 50 Meds/Results Medications: Active Medications Generic Name Dose Route Start Last Admin Trade Name Freq PRN Reason Stop Dose Admin Acetaminophen 650 mg 05/22/25 15:09 Acetaminophen 325 Mg Tablet PO Q4H PRN Mild Pain (1-3) or Fever Atorvastatin Calcium 10 mg 05/23/25 09:00 Atorvastatin 10 Mg Tablet PO DAILY [facility] Docusate Sodium 100 mg 05/22/25 17:00 05/22/25 17:15 Docusate Sodium 100 Mg Capsule PO Not Given BID ANGELINA Doxycycline Hyclate 100 mg 05/23/25 09:00 Doxycycline Hyclate 100 Mg Tablet PO Q12HR [facility] Finasteride 5 mg 05/23/25 09:00 Finasteride 5 Mg Tablet BY MOUTH DAILY [facility] Fluticasone/Umeclidinium/Vilanterol 1 puff 05/23/25 08:00 05/23/25 08:16 Fluticasone/Umeclidin/Vilanter 100-62.5-25 Mcg Ellipta INHALATION Not Given DAILYRT [facility] Furosemide 20 mg 05/23/25 09:00 Furosemide 20 Mg Tablet BY MOUTH DAILY [facility] Guaifenesin 1,200 mg 05/22/25 21:00 05/22/25 20:42 Guaifenesin 12 Hr 600 Mg Tabcr PO 1,200 mg HS ANGELINA Administration Guaifenesin 1,200 mg 05/23/25 09:00 Guaifenesin 12 Hr 600 Mg Tabcr PO Q12HR [facility] Ceftriaxone Sodium 1 gm/ 50 mls @ 100 mls/hr 05/23/25 09:00 Sodium Chloride IVPB Q24H [facility] Levalbuterol HCl 0.63 mg 05/23/25 02:00 05/23/25 08:09 Levalbuterol Neb 1.25 Mg/3 Ml INHALATION 0.63 mg Q6HRT ANGELINA Administration Methylprednisolone Sodium Succinate 60 mg 05/22/25 18:00 05/23/25 05:19 Methylprednisolone Sod Succ 125 Mg Vial IV PUSH 60 mg Q6HR ANGELINA Administration Metoprolol Succinate 25 mg 05/23/25 09:00 Metoprolol Succinate Ext Rel 25 Mg Tabcr BY MOUTH DAILY [facility] Miscellaneous Information 0 each 05/22/25 00:01 Simbrinza Nonform Can Pt Bring From Home? XX 06/21/25 00:00 CLARIFY [facility] Montelukast Sodium 10 mg 05/22/25 21:00 05/22/25 20:42 Montelukast Sodium 10 Mg Tablet BY MOUTH 10 mg HS ANGELINA Administration Non-Formulary Medication 1 drop 05/23/25 09:00 Brinzolamide-Brimonidine [Simbrinza] EACH EYE 08/11/25 08:59 BID [facility] Pantoprazole Sodium 40 mg 05/23/25 09:00 Pantoprazole 40 Mg Tablet BY MOUTH DAILY [facility] Prednisone 40 mg 05/23/25 08:00 Prednisone 20 Mg Tablet PO 05/28/25 07:59 DAILY@0800 [facility] Spironolactone 25 mg 05/22/25 21:00 05/22/25 20:43 Spironolactone 25 Mg Tablet BY MOUTH 25 mg HS [facility] Administration Trazodone HCl 50 - 100 mg 05/22/25 21:00 05/22/25 20:43 Trazodone Hcl 50 Mg Tablet PO 100 mg QHS [facility] Administration Valsartan 80 mg 05/23/25 09:00 Valsartan 80 Mg Tablet PO DAILY [facility] Warfarin Sodium 4 mg 05/24/25 17:00 Warfarin (*Pbkc) 4 Mg Tablet PO Q48H [facility] Warfarin Sodium 3 mg 05/23/25 17:00 Warfarin (*Pbkc) 3 Mg Tablet PO Q48H [facility] Radiology Results: ITS Impressions Chest X-Ray 05/22/25 10:33 IMPRESSION: 1. Mild elevation of the left hemidiaphragm with mild streaky bibasilar opacities and favor atelectasis over pneumonia. Labs Labs: Laboratory Results - last 24 hr 05/22/25 05/22/25 05/22/25 10:15 10:52 15:20 WBC 8.8 RBC 4.12 L Hgb 12.7 L Hct 39.3 L MCV 95.4 MCH 30.8 MCHC 32.3 RDW 15.7 H Plt Count 205 MPV 9.8 Immature Gran % (Auto) 0.5 Neut % (Auto) 73.1 Lymph % (Auto) 13.2 L Door % (Auto) 11.3 H Eos % (Auto) 1.7 Baso % (Auto) 0.2 Lymph # (Auto) 1.17 Door # (Auto) 1.0 H Eos # (Auto) 0.2 Baso # (Auto) 0.0 Abs Immat Gran (auto) 0.04 H Absolute Neuts (auto) 6.5 Absolute Nucleated RBC 0.000 Nucleated RBC % 0.0 PT 27.5 H INR 2.7 APTT 48.4 H Sodium 138 Potassium 3.3 L Chloride 106 Carbon Dioxide 23 Anion Gap 9 BUN 18 Creatinine 1.17 Estim Creat Clear Calc 43 Estimated GFR 59 Glucose 111 H Lactic Acid 1.8 Calcium 9.0 Magnesium 1.4 L Total Bilirubin 0.6 AST 39 ALT 23 Alkaline Phosphatase 75 Troponin I 0.051 H* 0.051 H* NT-Pro-B Natriuret Pep 735 H Total Protein 7.2 Albumin 3.8 Lipase 91 Influenza A (RT-PCR) Negative Influenza B (RT-PCR) Negative RSV (RT-PCR) Negative SARS-CoV-2 RNA (RT-PCR) Negative Urine Pneumococcal Ag 05/22/25 05/22/25 05/23/25 18:16 23:34 04:12 WBC 12.9 H RBC 3.67 L Hgb 11.5 L Hct 35.4 L MCV 96.5 MCH 31.3 MCHC 32.5 RDW 15.5 H Plt Count 181 MPV 9.9 Immature Gran % (Auto) 0.5 Neut % (Auto) 92.7 H Lymph % (Auto) 4.4 L [place] % (Auto) 2.2 L Eos % (Auto) 0.0 Baso % (Auto) 0.2 Lymph # (Auto) 0.57 L [place] # (Auto) 0.3 Eos # (Auto) 0.0 Baso # (Auto) 0.0 Abs Immat Gran (auto) 0.07 H Absolute Neuts (auto) 12.0 H Absolute Nucleated RBC 0.000 Nucleated RBC % 0.0 PT 30.7 H INR 3.1 APTT Sodium 136 L Potassium 3.6 Chloride 105 Carbon Dioxide 22 Anion Gap 9 BUN 18 Creatinine 0.94 Estim Creat Clear Calc 53 Estimated GFR > 60 Glucose 179 H Lactic Acid Calcium 8.6 Magnesium Total Bilirubin AST ALT Alkaline Phosphatase Troponin I 0.047 H* NT-Pro-B Natriuret Pep Total Protein Albumin Lipase Influenza A (RT-PCR) Influenza B (RT-PCR) RSV (RT-PCR) SARS-CoV-2 RNA (RT-PCR) Urine Pneumococcal Ag Cancelled
[2025-05-23] MEDS: METOPROLOL SUCCINATE EXT REL 25 MG TABCR BY MOUTH (09:14)
[2025-05-23] MEDS: guaiFENesin 12 HR 600 MG TABCR 1200 MG PO ×2 (09:14→21:32)
[2025-05-23] MEDS: VALSARTAN 80 MG TABLET PO (09:14)
[2025-05-23] MEDS: FINASTERIDE 5 MG TABLET BY MOUTH (09:14)
[2025-05-23] MEDS: DOXYCYCLINE HYCLATE 100 MG TABLET PO ×2 (09:14→21:33)
[2025-05-23] MEDS: ATORVASTATIN 10 MG TABLET PO (09:15)
[2025-05-23] MEDS: DOCUSATE SODIUM 100 MG CAPSULE PO (09:15)
[2025-05-23] MEDS: FUROSEMIDE 20 MG TABLET BY MOUTH (09:15)
[2025-05-23] MEDS: cefTRIAXone 1 GM in SODIUM CHLORIDE 0.9% IV 50 ML 100 ML IVPB (09:15)
[2025-05-23] MEDS: PANTOPRAZOLE 40 MG TABLET BY MOUTH (09:15)
--- NOTE | 2025-05-23 11:25 | PHAR ---
HOME MED Brinzolamide-Brimonidine [Simbrinza] 1-0.2 % drops,suspension; 8 ML BOTTLE. IN ORIGINAL [employer] BOTTLE. LIQUID INSIDE UNABLE TO BE VERIFIED BY PHARMACY.
--- NOTE | 2025-05-23 13:43 | PC.NURSE ---
This patient, Gigi Richardson, was transferred to Replaced by [facility] on 05/23/25 at 1327. Personal belongings sent with patient. Report given to LONDON Love. Appropriate documentation sent with patient. Call light and personal items in reach. Ender Davey RN
--- NOTE | 2025-05-23 13:43 | PC.NURSE ---
This patient, Gigi Richardson, was received from [facility] on 05/23/25 at 1343. Patient/family oriented to unit policies and routines.
--- NOTE | 2025-05-23 15:22 | PCPTNOTE ---
Attempted to see at 1318, but patient transferring off of IMCU. Physical therapy will attempt to see later as time allows.
[2025-05-23] MEDS: WARFARIN (*PBKC) 3 MG TABLET PO (18:10)
--- NOTE | 2025-05-23 18:13 | PC.NURSE ---
Hospitalist notified INR is 3.1, recommended holding 3 mg warfarin for pm dose on 05/23/25. When informing patient of MDs recommendations, he stated he will insist on receiving the 3 mg warfarin dose tonight. Patient was adamant on being able to make his own decision and was alert and oriented at the time. Warfarin 3 mg administered per patient request.
[2025-05-23] MEDS: SPIRONOLACTONE 25 MG TABLET BY MOUTH (21:32)
[2025-05-23] MEDS: METOPROLOL SUCCINATE EXT REL 25 MG TABCR PO (21:33)
[2025-05-23] MEDS: MONTELUKAST SODIUM 10 MG TABLET BY MOUTH (21:33)
[2025-05-23 23:26] LABS: Anion Gap 10 mmol/L (4-12); Blood Urea Nitrogen 25 mg/dL (9-20); Calcium 8.8 mg/dL (8.4-10.2); Carbon Dioxide 23 mmol/L (22-30); Chloride 102 mmol/L (98-107); Estimated CRCL calculation 44 ml/min; Estimated Glomerular Filt Rate 60; Glucose 139 mg/dL (65-110); Magnesium 1.8 mg/dL (1.6-2.3); Potassium 3.6 mmol/L (3.4-5.0); Sodium 135 mmol/L (137-145)
[2025-05-24] VITALS (18 sets, daily range): BP systolic 122–147; BP diastolic 69–91; PULSE 77–103; RESP 16–20; TEMP 36.3–36.7; O2SAT 93–100
[2025-05-24 06:25] LABS: Hematocrit 38.3 % (42.0-52.0); Hemoglobin 12.4 g/dL (14.0-18.0); Immature Granulocyte Percent A 1.0 % (0-0.5); Lymphocytes Absolute Auto 0.67 K/mm3 (0.9-3.2); Mean Corpuscular HGB Conc 32.4 g/dl (32-36); Mean Corpuscular Hemoglobin 30.9 pg (26-34); Mean Corpuscular Volume 95.5 fl (80-100); Nucleated Red Blood Cells Absolute Auto 0.000 K/mm3 (0.0-0.012); Nucleated Red Blood Cells Perc 0.0 % (0.0-0.2); Platelet Count Result 207 k/mm3 (150-375); Red Blood Count 4.01 M/mm3 (4.6-6.20); White Blood Count 18.5 K/mm3 (4.5-10.0)
[2025-05-24 06:45] LABS: Alanine Aminotransferase 32 U/L (6-50); Albumin Level 3.5 g/dL (3.5-5.1); Alkaline Phosphatase 80 U/L (38-126); Anion Gap 7 mmol/L (4-12); Aspartate Amino Transferase 70 U/L (17-59); Bilirubin,Total 0.5 mg/dL (0.2-1.3); Blood Urea Nitrogen 25 mg/dL (9-20); Calcium 8.8 mg/dL (8.4-10.2); Carbon Dioxide 25 mmol/L (22-30); Chloride 104 mmol/L (98-107); Estimated CRCL calculation 45 ml/min; Estimated Glomerular Filt Rate > 60; Glucose 133 mg/dL (65-110); Magnesium 1.8 mg/dL (1.6-2.3); Potassium 4.0 mmol/L (3.4-5.0); Sodium 136 mmol/L (137-145); Total Protein 6.6 g/dL (6.3-8.2)
[2025-05-24] MEDS: FLUTICASONE/UMECLIDIN/VILANTER 100-62.5-25 MCG ELLIPTA 1 PUFF INHALATION (07:22)
[2025-05-24] MEDS: VALSARTAN 80 MG TABLET PO (09:08)
[2025-05-24] MEDS: cefTRIAXone 1 GM in SODIUM CHLORIDE 0.9% IV 50 ML 100 ML IVPB (09:08)
[2025-05-24] MEDS: guaiFENesin 12 HR 600 MG TABCR 1200 MG PO ×2 (09:08→21:12)
[2025-05-24] MEDS: METOPROLOL SUCCINATE EXT REL 25 MG TABCR BY MOUTH (09:09)
[2025-05-24] MEDS: DOXYCYCLINE HYCLATE 100 MG TABLET PO ×2 (09:09→21:12)
[2025-05-24] MEDS: ATORVASTATIN 10 MG TABLET PO (09:09)
[2025-05-24] MEDS: FINASTERIDE 5 MG TABLET BY MOUTH (09:09)
[2025-05-24] MEDS: PANTOPRAZOLE 40 MG TABLET BY MOUTH (09:09)
[2025-05-24] MEDS: FUROSEMIDE 20 MG TABLET BY MOUTH (09:10)
[2025-05-24 09:31] LABS: INR 3.0; Prothrombin Time 29.9 Seconds (11.1-14.7)
--- NOTE | 2025-05-24 12:21 | PM.IMPN ---
Progress Note: A&P Assessment and Plan (1) Acute exacerbation of chronic obstructive pulmonary disease: Code(s): J44.1 - Chronic obstructive pulmonary disease with (acute) exacerbation Status: Acute (2) Elevated troponin: Code(s): R79.89 - Other specified abnormal findings of blood chemistry Status: Acute (3) Afib: Qualifiers: Atrial fibrillation type: longstanding persistent Qualified Code(s): I48.11 - Longstanding persistent atrial fibrillation Code(s): I48.91 - Unspecified atrial fibrillation Status: Chronic (4) Essential hypertension: Code(s): I10 - Essential (primary) hypertension Status: Acute (5) Diastolic dysfunction: Code(s): I51.89 - Other ill-defined heart diseases Status: Acute (6) Hyperlipidemia: Qualifiers: Hyperlipidemia type: mixed hyperlipidemia Qualified Code(s): E78.2 - Mixed hyperlipidemia Code(s): E78.5 - Hyperlipidemia, unspecified Status: Acute (7) Chronic kidney disease, stage 3: Qualifiers: Chronic kidney disease stage 3 subtype: unspecified whether 3a or 3b Qualified Code(s): N18.30 - Chronic kidney disease, stage 3 unspecified Code(s): N18.3 - Chronic kidney disease, stage 3 (moderate) Status: Acute Plan 89-year-old male past medical history of MIREILLE, history of DVT, chronic kidney disease, CHF, and hyperlipidemia presents the hospital with shortness of breath and cough for 1 week. He originally went to his PCP which started him on cefuroxime, patient has been taking a antibiotics are started since Sunday without any improvements so he presents to the hospital. Patient complains of cough, shortness of breath and thick sputum that he is unable to get up. He denies fever chills nausea or vomiting. In the ED his vitals were stable. Laboratory workup showed Hemoglobin 12.7, INR of 2.7, potassium of 3.3, magnesium 1.4, troponin of 0.051, BNP of 735, influenza A/B, RSV, COVID negative. Chest x-ray shows Mild elevation of the left hemidiaphragm with mild streaky bibasilar opacities and favor atelectasis over pneumonia. EKG shows AFib at 83. Patient given Solu-Medrol, potassium and magnesium, azithromycin and Rocephin in the ED COPD exacerbation treated with steroid in the ER. Now switched to prednisone which will be continued. Leukocytosis likely related to steroid treatment. Pneumonia mild streaky bibasilar opacities on chest x-ray mild leukocytosis Elevated troponin flat trend AFib with mild RVR with albuterol switched to Xopenex. On anticoagulation with warfarin with therapeutic INR Hypertension Diastolic dysfunction Hyperlipidemia CKD stage 3 MIRE[place] on CPAP History of CVA History of DVT Long-term anticoagulant use History of GI bleed Peripheral neuropathy Gout DVT prophylaxis on warfarin Code status full code Subjective Date/time seen: 05/24/25 12:21 Interval history: Feeling better. No overnight events. No new complaints. Labs reviewed. Discussed with the patient. Review of Systems Review of Systems: All systems reviewed & are unremarkable except as noted in HPI and below Exam Narrative: General: well appearing, appears stated age. HEENT: normocephalic, atraumatic. Mucous membranes moist. EOMI Respiratory: No wheezes no respiratory distress clear to auscultation Cardiovascular: Irregular rate and AFib in rhythm, normal S1-S2 upon ascultation. No murmurs, rubs, or clicks. Abdomen: Soft, round, no pulsatile masses, nondistended and nontender. No rebound, no guarding. Extremities: No cyanosis, clubbing, or edema present. Pulses are palpable 2/2. Active ROM to all four extremities. Neuro: Alert and orientated x 4. PERRLA. Cranial nerves 2-12 intact without focal deficit. Skin: Warm, dry, and intact, without rash, erythema, or lesion. Psych: pleasant, cooperative, normal speech, normal affect, no hallucinations, no dysarthia Objective Data Vital Signs Vital Signs: Vital Signs - 24 hr 05/23/25 13:55 05/23/25 14:04 05/23/25 16:00 Temperature Pulse Rate 88 89 97 Respiratory Rate 20 20 Blood Pressure Pulse Oximetry Oxygen Delivery 05/23/25 16:00 05/23/25 20:00 05/23/25 20:00 Temperature 98.2 F 98.5 F Pulse Rate 91 90 100 Respiratory Rate 22 H 20 20 Blood Pressure 152/77 H 127/89 Pulse Oximetry 98 95 95 Oxygen Delivery Room Air 05/23/25 20:00 05/23/25 20:07 05/23/25 20:08 Temperature Pulse Rate 87 84 Respiratory Rate 20 Blood Pressure Pulse Oximetry 96 Oxygen Delivery Room Air 05/23/25 20:15 05/23/25 21:33 05/24/25 00:00 Temperature 97.5 F L Pulse Rate 85 100 80 Respiratory Rate 20 16 Blood Pressure 122/72 Pulse Oximetry 95 Oxygen Delivery 05/24/25 00:00 05/24/25 02:30 05/24/25 02:37 Temperature Pulse Rate 87 83 84 Respiratory Rate 20 20 Blood Pressure Pulse Oximetry Oxygen Delivery 05/24/25 04:00 05/24/25 04:00 05/24/25 07:19 Temperature 98.1 F Pulse Rate 89 77 90 Respiratory Rate 18 18 Blood Pressure 136/82 Pulse Oximetry 94 Oxygen Delivery 05/24/25 07:25 05/24/25 07:26 05/24/25 08:00 Temperature 97.3 F L Pulse Rate 89 95 Respiratory Rate 18 16 Blood Pressure 147/89 H Pulse Oximetry 93 96 Oxygen Delivery Room Air 05/24/25 08:00 05/24/25 09:09 05/24/25 11:44 Temperature Pulse Rate 98 100 Respiratory Rate Blood Pressure Pulse Oximetry Oxygen Delivery Room Air Intake/Output Intake/Output: Intake & Output 05/21/25 05/22/25 05/23/25 05/24/25 23:59 23:59 23:59 23:59 Intake Total 990 1890 Output Total 690 350 900 Balance 300 1540 -900 Meds/Results Medications: Active Medications Generic Name Dose Route Start Last Admin Trade Name Freq PRN Reason Stop Dose Admin Acetaminophen 650 mg 05/22/25 15:09 Acetaminophen 325 Mg Tablet PO Q4H PRN Mild Pain (1-3) or Fever Atorvastatin Calcium 10 mg 05/23/25 09:00 05/24/25 09:09 Atorvastatin 10 Mg Tablet PO 10 mg DAILY ANGELINA Administration Docusate Sodium 100 mg 05/22/25 17:00 05/24/25 09:13 Docusate Sodium 100 Mg Capsule PO Not Given BID ANGELINA Doxycycline Hyclate 100 mg 05/23/25 09:00 05/24/25 09:09 Doxycycline Hyclate 100 Mg Tablet PO 100 mg Q12HR ANGELINA Administration Finasteride 5 mg 05/23/25 09:00 05/24/25 09:09 Finasteride 5 Mg Tablet BY MOUTH 5 mg DAILY ANGELINA Administration Fluticasone/Umeclidinium/Vilanterol 1 puff 07/12/25 08:00 05/24/25 07:22 Fluticasone/Umeclidin/Vilanter 100-62.5-25 Mcg Ellipta INHALATION 1 puff DAILYRT ANGELINA Administration Furosemide 20 mg 05/23/25 09:00 05/24/25 09:10 Furosemide 20 Mg Tablet BY MOUTH 20 mg DAILY ANGELINA Administration Guaifenesin 1,200 mg 05/23/25 09:00 05/24/25 09:08 Guaifenesin 12 Hr 600 Mg Tabcr PO 1,200 mg Q12HR ANGELINA Administration Ceftriaxone Sodium 1 gm/ 50 mls @ 100 mls/hr 05/23/25 09:00 05/24/25 09:08 Sodium Chloride IVPB 100 mls/hr Q24H ANGELINA Administration Levalbuterol HCl 0.63 mg 05/23/25 02:00 05/24/25 07:15 Levalbuterol Neb 1.25 Mg/3 Ml INHALATION 0.63 mg Q6HRT ANGELINA Administration Metoprolol Succinate 25 mg 05/23/25 09:00 05/24/25 09:09 Metoprolol Succinate Ext Rel 25 Mg Tabcr BY MOUTH 25 mg DAILY ANGELINA Administration Montelukast Sodium 10 mg 05/22/25 21:00 05/23/25 21:33 Montelukast Sodium 10 Mg Tablet BY MOUTH 10 mg HS ANGELINA Administration Brinzolamide- 1 drop 05/23/25 12:00 05/24/25 09:12 Brimonidine [ EACH EYE 06/22/25 11:59 1 drop Simbrinza] 1-0.2 % BID ANGELINA Administration Drops,Suspension Pantoprazole Sodium 40 mg 05/23/25 09:00 05/24/25 09:09 Pantoprazole 40 Mg Tablet BY MOUTH 40 mg DAILY ANGELINA Administration Prednisone 40 mg 05/23/25 08:00 05/24/25 09:07 Prednisone 20 Mg Tablet PO 05/28/25 07:59 40 mg DAILY@0800 ANGELINA Administration Spironolactone 25 mg 05/22/25 21:00 05/23/25 21:32 Spironolactone 25 Mg Tablet BY MOUTH 25 mg HS ANGELINA Administration Trazodone HCl 50 - 100 mg 05/22/25 21:00 05/23/25 21:33 Trazodone Hcl 50 Mg Tablet PO 50 mg QHS ANGELINA Administration Valsartan 80 mg 05/23/25 09:00 05/24/25 09:08 Valsartan 80 Mg Tablet PO 80 mg DAILY [facility] Administration Warfarin Sodium 4 mg 05/24/25 17:00 Warfarin (*Pbkc) 4 Mg Tablet PO Q48H [facility] Warfarin Sodium 3 mg 05/23/25 17:00 05/23/25 18:10 Warfarin (*Pbkc) 3 Mg Tablet PO 3 mg Q48H ANGELINA Administration Radiology Results: ITS Impressions Chest X-Ray 05/22/25 10:33 IMPRESSION: 1. Mild elevation of the left hemidiaphragm with mild streaky bibasilar opacities and favor atelectasis over pneumonia. Labs Labs: Laboratory Results - last 24 hr 05/23/25 05/24/25 05/24/25 22:58 06:05 09:12 WBC 18.5 H RBC 4.01 L Hgb 12.4 L Hct 38.3 L MCV 95.5 MCH 30.9 MCHC 32.4 RDW 15.5 H Plt Count 207 MPV 10.2 Immature Gran % (Auto) 1.0 H Neut % (Auto) 90.7 H Lymph % (Auto) 3.6 L [place] % (Auto) 4.6 Eos % (Auto) 0.0 Baso % (Auto) 0.1 L Lymph # (Auto) 0.67 L [place] # (Auto) 0.8 H Eos # (Auto) 0.0 Baso # (Auto) 0.0 Abs Immat Gran (auto) 0.18 H Absolute Neuts (auto) 16.8 H Absolute Nucleated RBC 0.000 Nucleated RBC % 0.0 PT 29.9 H INR 3.0 Sodium 135 L 136 L Potassium 3.6 4.0 Chloride 102 104 Carbon Dioxide 23 25 Anion Gap 10 7 BUN 25 H 25 H Creatinine 1.14 1.12 Estim Creat Clear Calc 44 45 Estimated GFR 60 > 60 Glucose 139 H 133 H Calcium 8.8 8.8 Phosphorus 1.6 L Magnesium 1.8 1.8 Total Bilirubin 0.5 AST 70 H ALT 32 Alkaline Phosphatase 80 Total Protein 6.6 Albumin 3.5
[2025-05-24] MEDS: WARFARIN (*PBKC) 3 MG TABLET PO (17:40)
[2025-05-24] MEDS: MONTELUKAST SODIUM 10 MG TABLET BY MOUTH (21:12)
[2025-05-24] MEDS: SPIRONOLACTONE 25 MG TABLET BY MOUTH (21:12)
[2025-05-25] VITALS (8 sets, daily range): BP systolic 140–149; BP diastolic 71–92; PULSE 71–104; RESP 16–18; TEMP 36.3–36.4; O2SAT 95–100
[2025-05-25 07:12] LABS: Hematocrit 41.0 % (42.0-52.0); Hemoglobin 13.1 g/dL (14.0-18.0); Immature Granulocyte Percent A 0.7 % (0-0.5); Lymphocytes Absolute Auto 1.03 K/mm3 (0.9-3.2); Mean Corpuscular HGB Conc 32.0 g/dl (32-36); Mean Corpuscular Hemoglobin 31.3 pg (26-34); Mean Corpuscular Volume 98.1 fl (80-100); Nucleated Red Blood Cells Absolute Auto 0.000 K/mm3 (0.0-0.012); Nucleated Red Blood Cells Perc 0.0 % (0.0-0.2); Platelet Count Result 234 k/mm3 (150-375); Red Blood Count 4.18 M/mm3 (4.6-6.20); White Blood Count 15.0 K/mm3 (4.5-10.0)
[2025-05-25 07:21] LABS: INR 3.7; Prothrombin Time 35.2 Seconds (11.1-14.7)
[2025-05-25 07:30] LABS: Alanine Aminotransferase 46 U/L (6-50); Albumin Level 3.6 g/dL (3.5-5.1); Alkaline Phosphatase 77 U/L (38-126); Anion Gap 5 mmol/L (4-12); Aspartate Amino Transferase 78 U/L (17-59); Bilirubin,Total 0.5 mg/dL (0.2-1.3); Blood Urea Nitrogen 27 mg/dL (9-20); Calcium 9.0 mg/dL (8.4-10.2); Carbon Dioxide 26 mmol/L (22-30); Chloride 104 mmol/L (98-107); Estimated CRCL calculation 43 ml/min; Estimated Glomerular Filt Rate 58; Glucose 113 mg/dL (65-110); Magnesium 1.9 mg/dL (1.6-2.3); Potassium 3.7 mmol/L (3.4-5.0); Sodium 135 mmol/L (137-145); Total Protein 6.8 g/dL (6.3-8.2)
[2025-05-25] MEDS: FLUTICASONE/UMECLIDIN/VILANTER 100-62.5-25 MCG ELLIPTA 1 PUFF INHALATION (08:16)
[2025-05-25] MEDS: guaiFENesin 12 HR 600 MG TABCR 1200 MG PO (08:55)
[2025-05-25] MEDS: DOCUSATE SODIUM 100 MG CAPSULE PO (08:55)
[2025-05-25] MEDS: VALSARTAN 80 MG TABLET PO (08:56)
[2025-05-25] MEDS: DOXYCYCLINE HYCLATE 100 MG TABLET PO (08:56)
[2025-05-25] MEDS: ATORVASTATIN 10 MG TABLET PO (08:56)
[2025-05-25] MEDS: PANTOPRAZOLE 40 MG TABLET BY MOUTH (08:56)
[2025-05-25] MEDS: METOPROLOL SUCCINATE EXT REL 25 MG TABCR BY MOUTH (08:56)
[2025-05-25] MEDS: FINASTERIDE 5 MG TABLET BY MOUTH (08:56)
[2025-05-25] MEDS: FUROSEMIDE 20 MG TABLET BY MOUTH (08:56)
[2025-05-25] MEDS: cefTRIAXone 1 GM in SODIUM CHLORIDE 0.9% IV 50 ML 100 ML IVPB (08:57)
--- NOTE | 2025-05-25 12:09 | P.DS_ITS ---
DS: Admitting Diagnosis Discharge Date 05/25/2025 Admitting Diagnosis Shortness of breath cough DS: Discharge Diagnosis Discharge Diagnosis (1) Acute exacerbation of chronic obstructive pulmonary disease: Code(s): J44.1 - Chronic obstructive pulmonary disease with (acute) exacerbation Status: Acute (2) Elevated troponin: Code(s): R79.89 - Other specified abnormal findings of blood chemistry Status: Acute (3) Afib: Qualifiers: Atrial fibrillation type: longstanding persistent Qualified Code(s): I48.11 - Longstanding persistent atrial fibrillation Code(s): I48.91 - Unspecified atrial fibrillation Status: Chronic (4) Essential hypertension: Code(s): I10 - Essential (primary) hypertension Status: Acute (5) Diastolic dysfunction: Code(s): I51.89 - Other ill-defined heart diseases Status: Acute (6) Hyperlipidemia: Qualifiers: Hyperlipidemia type: mixed hyperlipidemia Qualified Code(s): E78.2 - Mixed hyperlipidemia Code(s): E78.5 - Hyperlipidemia, unspecified Status: Acute (7) Chronic kidney disease, stage 3: Qualifiers: Chronic kidney disease stage 3 subtype: unspecified whether 3a or 3b Qualified Code(s): N18.30 - Chronic kidney disease, stage 3 unspecified Code(s): N18.3 - Chronic kidney disease, stage 3 (moderate) Status: Acute DS: Summary Hospital Course Hospital Course: 89-year-old male past medical history of MIREILLE, history of DVT, chronic kidney disease, CHF, and hyperlipidemia presents the hospital with shortness of breath and cough for 1 week. He originally went to his PCP which started him on cefuroxime, patient has been taking a antibiotics are started since Sunday without any improvements so he presents to the hospital. Patient complains of cough, shortness of breath and thick sputum that he is unable to get up. He denies fever chills nausea or vomiting. In the ED his vitals were stable. Laboratory workup showed Hemoglobin 12.7, INR of 2.7, potassium of 3.3, magnesium 1.4, troponin of 0.051, BNP of 735, influenza A/B, RSV, COVID negative. Chest x-ray shows Mild elevation of the left hemidiaphragm with mild streaky bibasilar opacities and favor atelectasis over pneumonia. EKG shows AFib at 83. Patient given Solu-Medrol, potassium and magnesium, azithromycin and Rocephin in the ED COPD exacerbation treated with steroid in the ER. Now switched to prednisone which will be continued. Leukocytosis likely related to steroid treatment which has stabilized Pneumonia mild streaky bibasilar opacities on chest x-ray mild leukocytosis switch to oral at discharge Elevated troponin flat trend AFib with mild RVR with albuterol switched to Xopenex. On anticoagulation with warfarin with therapeutic INR. INR up trending likely related to interaction with antibiotics. Lower the dose and continue to monitor as an outpatient basis. Hypertension Diastolic dysfunction Hyperlipidemia CKD stage 3 MIREILLE on CPAP History of CVA History of DVT Long-term anticoagulant use History of GI bleed Peripheral neuropathy Gout DVT prophylaxis on warfarin Code status full code Time Spent with Patient Time attestation: Total time spent providing and/or coordinating discharge services: 40 minutes Exam Narrative: General: well appearing, appears stated age. HEENT: normocephalic, atraumatic. Mucous membranes moist. EOMI Respiratory: No wheezes no respiratory distress clear to auscultation Cardiovascular: Irregular rate and AFib in rhythm, normal S1-S2 upon ascultation. No murmurs, rubs, or clicks. Abdomen: Soft, round, no pulsatile masses, nondistended and nontender. No rebound, no guarding. Extremities: No cyanosis, clubbing, or edema present. Pulses are palpable 2/2. Active ROM to all four extremities. Neuro: Alert and orientated x 4. PERRLA. Cranial nerves 2-12 intact without focal deficit. Skin: Warm, dry, and intact, without rash, erythema, or lesion. Psych: pleasant, cooperative, normal speech, normal affect, no hallucinations, no dysarthia DS: Data Data Completed and Pending Labs on day of discharge: Labs from last 24 hours 05/25/25 05/25/25 06:51 06:50 WBC 15.0 H RBC 4.18 L Hgb 13.1 L Hct 41.0 L MCV 98.1 MCH 31.3 MCHC 32.0 RDW 15.8 H Plt Count 234 MPV 9.9 Immature Gran % (Auto) 0.7 H Neut % (Auto) 85.2 H Lymph % (Auto) 6.9 L [place] % (Auto) 7.1 Eos % (Auto) 0.0 Baso % (Auto) 0.1 L Lymph # (Auto) 1.03 [place] # (Auto) 1.1 H Eos # (Auto) 0.0 Baso # (Auto) 0.0 Abs Immat Gran (auto) 0.10 H Absolute Neuts (auto) 12.8 H Absolute Nucleated RBC 0.000 Nucleated RBC % 0.0 PT 35.2 H INR 3.7 Sodium 135 L Potassium 3.7 Chloride 104 Carbon Dioxide 26 Anion Gap 5 BUN 27 H Creatinine 1.18 Estim Creat Clear Calc 43 Estimated GFR 58 L Glucose 113 H Calcium 9.0 Magnesium 1.9 Total Bilirubin 0.5 AST 78 H ALT 46 Alkaline Phosphatase 77 Total Protein 6.8 Albumin 3.6 Preliminary micro results at discharge 05/22/25 10:52 Blood Culture - Preliminary Blood 05/22/25 10:15 Blood Culture - Preliminary Blood Imaging Radiologist's impression: ITS Impressions Chest X-Ray 05/22/25 10:33 IMPRESSION: 1. Mild elevation of the left hemidiaphragm with mild streaky bibasilar opacities and favor atelectasis over pneumonia. Discharge Plan Discharge Attending physician on discharge: Pantera Messer Discharging Clinician: Pantera Messer Anticipated Discharge Date/Time: 05/25/25 12:11 Patient Disposition: Home Activity: as tolerated Diet: heart healthy Discharge Instructions: hold coumadin tonight. INR in am. Need to lower the dose of coumadin while on antibiotics. per PCP. (patient self monitors with MD INR at home) Patient Instructions: Antibiotic Form Patient Language: Upper Sorbian Stand Alone Forms: General Discharge Information Follow-up/Referrals: Abelardo Pickett MD [Primary Care Provider] - 1 Week Discharge Medications: New (DME) nebulizer and compressor Device See Rx Instructions .Route Qty: 1 0RF Rx Instructions: As directed for nebulizer treatments for COPD docusate sodium 100 mg Capsule 100 mg PO BID Qty: 30 0RF levalbuterol HCl 1.25 mg/3 mL Solution For Nebulization 0.63 mg inhalation Q6HRT Qty: 90 0RF cefdinir 300 mg capsule 300 mg PO Q12H Qty: 6 0RF prednisone 10 mg tablet 10 mg PO DIRECTED Qty: 12 0RF Rx Instructions: take 3 tabs daily x 2 days then 2 tab daily x 2 days then 1 tab daily x 2 days then stop doxycycline hyclate 100 mg Tablet 100 mg PO Q12HR Qty: 9 0RF levalbuterol tartrate [Xopenex HFA] 45 mcg/actuation HFA aerosol inhaler 2 inh inhalation Q6H Qty: 15 0RF Continued valsartan 80 mg tablet 80 mg PO DAILY Qty: 90 1RF Fiber Gummies 2 gram tablet,chewable 2 g PO DAILY oxymetazoline [Vicks Sinex 12-Hour] 0.05 % spray,non-aerosol 2 spray intranasal Q12H PRN (Reason: nasal congestion) guaifenesin [Mucinex] 1,200 mg tablet extended release 12hr 1,200 mg PO DAILY PRN (Reason: cough) Patient Comments: Takes 1 @ night. atorvastatin 10 mg tablet 10 mg PO .QOD at HS Rx Instructions: Pt takes atorvastatin by mouth every other day in the HS. Next dose due on Sunday05/23/25. Ocuvite Adult 50 Plus 250 mg (90 mg-160 mg) capsule 1 cap PO DAILY Eylea HD 8 mg/0.07 mL solution 8 mg intravitreal .13 every weeks krill oil 500 mg Capsule 500 mg PO DAILY Simbrinza 1-0.2 % drops,suspension 1 drp ophthalmic (eye) BID cyanocobalamin (vitamin B-12) [Vitamin B-12] 500 mcg tablet 500 mcg PO BID warfarin 4 mg tablet 4 mg PO .qod Protocol: Dose Management Condition: Sunday Dose/Route: 3 mg Instruction: 1 x 3 mg tablet Condition: Sunday Dose/Route: 4 mg Instruction: 1 x 4 mg tablet Condition: Sunday Dose/Route: 3 mg Instruction: 1 x 3 mg tablet Condition: Sunday Dose/Route: 4 mg Instruction: 1 x 4 mg tablet Condition: Dose/Route: 3 mg Instruction: 1 x 3 mg tablet Condition: Sunday Dose/Route: 4 mg Instruction: 1 x 4 mg tablet Condition: Sunday Dose/Route: 3 mg Instruction: 1 x 3 mg tablet Protocol Text: Adjustment Start Date: Sunday05/19/25 INR Value: 2.0 INR Date: 05/19/25 Recheck Date: 05/26/25 Additional Instructions: Per TCK, patient's Chikis was informed to keep same dose and recheck in 1 week. Rx Instructions: Pt takes coumadin 4mg PO every other day. Next dose for 4mg would be on Sunday05/22/25. warfarin 3 mg tablet 3 mg PO .qod Protocol: Dose Management Condition: Sunday Dose/Route: 3 mg Instruction: 1 x 3 mg tablet Condition: Sunday Dose/Route: 4 mg Instruction: 1 x 4 mg tablet Condition: Sunday Dose/Route: 3 mg Instruction: 1 x 3 mg tablet Condition: Sunday Dose/Route: 4 mg Instruction: 1 x 4 mg tablet Condition: Dose/Route: 3 mg Instruction: 1 x 3 mg tablet Condition: Sunday Dose/Route: 4 mg Instruction: 1 x 4 mg tablet Condition: Sunday Dose/Route: 3 mg Instruction: 1 x 3 mg tablet Protocol Text: Adjustment Start Date: Sunday05/19/25 INR Value: 2.0 INR Date: 05/19/25 Recheck Date: 05/26/25 Additional Instructions: Per TCK, patient's Chikis was informed to keep same dose and recheck in 1 week. Rx Instructions: Pt takes coumadin 3mg PO every other day. Next dose for the 3mg would be on Sunday05/23/25. warfarin 5 mg tablet 5 mg PO QPM PRN (Reason: .Low INR. Dosing is determined by Dr. Pickett.) Protocol: Dose Management Condition: Sunday Dose/Route: 3 mg Instruction: 1 x 3 mg tablet Condition: Sunday Dose/Route: 4 mg Instruction: 1 x 4 mg tablet Condition: Sunday Dose/Route: 3 mg Instruction: 1 x 3 mg tablet Condition: Sunday Dose/Route: 4 mg Instruction: 1 x 4 mg tablet Condition: Dose/Route: 3 mg Instruction: 1 x 3 mg tablet Condition: Sunday Dose/Route: 4 mg Instruction: 1 x 4 mg tablet Condition: Sunday Dose/Route: 3 mg Instruction: 1 x 3 mg tablet Protocol Text: Adjustment Start Date: Sunday05/19/25 INR Value: 2.0 INR Date: 05/19/25 Recheck Date: 05/26/25 Additional Instructions: Per TCK, patient's Chikis was informed to keep same dose and recheck in 1 week. Rx Instructions: Pt takes coumadin 5mg PO QPM PRN for low INR determined Dr. Pickett. montelukast 10 mg tablet See Rx Instructions .ROUTE .COMPLEX Qty: 90 1RF Dose Instruction: TAKE 1 TABLET BY MOUTH AT BEDTIME Rx Instructions: TAKE 1 TABLET BY MOUTH AT BEDTIME finasteride 5 mg tablet See Rx Instructions .ROUTE .COMPLEX Qty: 90 1RF Dose Instruction: Take 1 tablet by mouth once daily Rx Instructions: Take 1 tablet by mouth once daily metoprolol succinate 25 mg tablet extended release 24 hr See Rx Instructions .ROUTE .COMPLEX Qty: 90 1RF Dose Instruction: Take 1 tablet by mouth once daily Rx Instructions: Take 1 tablet by mouth once daily trazodone 50 mg tablet See Rx Instructions PO QHS Qty: 60 3RF Rx Instructions: take 1 to 2 tablets orally every day at bedtime; allopurinol 300 mg tablet See Rx Instructions .ROUTE .COMPLEX Qty: 90 2RF Dose Instruction: Take 1 tablet by mouth once daily Rx Instructions: Take 1 tablet by mouth once daily pantoprazole 40 mg tablet,delayed release (DR/EC) See Rx Instructions .ROUTE .COMPLEX Qty: 90 1RF Dose Instruction: Take 1 tablet by mouth once daily Rx Instructions: Take 1 tablet by mouth once daily furosemide 20 mg tablet See Rx Instructions .ROUTE .COMPLEX Qty: 90 1RF Dose Instruction: Take 1 tablet by mouth once daily Rx Instructions: Take 1 tablet by mouth once daily spironolactone 25 mg tablet See Rx Instructions .ROUTE .COMPLEX Qty: 90 1RF Dose Instruction: TAKE 1 TABLET BY MOUTH AT BEDTIME Rx Instructions: TAKE 1 TABLET BY MOUTH AT BEDTIME Trelegy Ellipta 100-62.5-25 mcg blister with device See Rx Instructions .ROUTE .COMPLEX Qty: 60 2RF Dose Instruction: Inhale 1 puff by mouth once daily Rx Instructions: Inhale 1 puff by mouth once daily Discontinued albuterol sulfate 2.5 mg /3 mL (0.083 %) solution for nebulization 2.5 mg inhalation Q4-6H PRN (Reason: shortness of breath or wheezing) Qty: 90 3RF albuterol sulfate 90 mcg/actuation HFA aerosol inhaler See Rx Instructions .ROUTE .COMPLEX PRN (Reason: COPD/Asthma) Qty: 9 0RF Dose Instruction: INHALE 1 PUFF BY MOUTH EVERY 4 HOURS NEEDED FOR SHORTNESS OF BREATH OR WHEEZING Rx Instructions: INHALE 1 PUFF BY MOUTH EVERY 4 HOURS NEEDED FOR SHORTNESS OF BREATH OR WHEEZING PRN; cefuroxime axetil 500 mg tablet 500 mg PO Q12H Qty: 20 0RF Date of admission: 05/23/25 10:34 Primary Care Provider: Abelardo Pickett Admitting Provider: Pantera Messer Attending physician on admission: Pantera Messer Condition: Stable
== END 2025-05-25 14:31 | disposition home or self-care (01) | DRG 190 ==
LOC: ANHED 11:58 → ANHIMU 13:06 → ANH3MED 05-23 13:25
PROVIDERS: Emergency Medicine; Nurse Practitioner Gerontology; Admitting Provider Internal Medicine; Emergency Provider Physician Assistant; PCP Internal Medicine; Visit Provider Internal Medicine
DX: J44.1 Chronic obstructive pulmonary disease with (acute) exacerbation (principal); J18.9 Pneumonia, unspecified organism; I13.0 Hypertensive heart and chronic kidney disease with heart failure and stage 1 through stage 4 chronic kidney disease, or unspecified chronic kidney disease; I48.11 Longstanding persistent atrial fibrillation; I50.32 Chronic diastolic (congestive) heart failure; J44.0 Chronic obstructive pulmonary disease with (acute) lower respiratory infection; N18.30 Chronic kidney disease, stage 3 unspecified; R79.89 Other specified abnormal findings of blood chemistry; E78.2 Mixed hyperlipidemia; G47.33 Obstructive sleep apnea (adult) (pediatric); G62.9 Polyneuropathy, unspecified; Z86.718 Personal history of other venous thrombosis and embolism; Z79.01 Long term (current) use of anticoagulants
CPT/HCPCS: 36415; 71046; 80048; 80053; 83605; 83690; 83735; 83880; 84100; 84484; 85025; 85610; 85730; 87040; 87637; 87899; 93005; 94640; 96365; 96366; 96367; 96375; 96376; 97161; 97165; 99285; A9270; G0378; J0456; J0696; J2919; J3475; J7050; J7512

== ENCOUNTER 2025-07-22 09:08 | Outpatient (CLI) | payer MEDICARE, SELFPAY ==
[2025-07-22 12:53] LABS: Hematocrit 40.9 % (42.0-52.0); Hemoglobin 14.0 g/dL (14.0-18.0); Immature Granulocyte Percent A 0.3 % (0-0.5); Lymphocytes Absolute Auto 2.49 K/mm3 (0.9-3.2); Mean Corpuscular HGB Conc 34.2 g/dl (32-36); Mean Corpuscular Hemoglobin 34.1 pg (26-34); Mean Corpuscular Volume 99.5 fl (80-100); Nucleated Red Blood Cells Absolute Auto 0.000 K/mm3 (0.0-0.012); Nucleated Red Blood Cells Perc 0.0 % (0.0-0.2); Platelet Count Result 227 k/mm3 (150-375); Red Blood Count 4.11 M/mm3 (4.6-6.20); White Blood Count 7.9 K/mm3 (4.5-10.0)
[2025-07-22 13:04] LABS: Anion Gap 8 mmol/L (4-12); Blood Urea Nitrogen 21 mg/dL (9-20); Calcium 9.4 mg/dL (8.4-10.2); Carbon Dioxide 27 mmol/L (22-30); Chloride 102 mmol/L (98-107); Cholesterol 136 mg/dL (0-200); Estimated Glomerular Filt Rate 53; Glucose 109 mg/dL (65-110); HDL Direct 33 mg/dL; Potassium 3.4 mmol/L (3.4-5.0); Sodium 137 mmol/L (137-145); Triglycerides 90 mg/dL (<150)
[2025-07-22 13:48] LABS: Hemoglobin A1C 6.0 % (<5.7)
== END 2025-07-22 09:09 | disposition home or self-care (01) ==
LOC: ANHGOSHLAB 09:10
PROVIDERS: PCP Internal Medicine; Visit Provider Internal Medicine
DX: R73.03 Prediabetes (principal); E78.2 Mixed hyperlipidemia; I10 Essential (primary) hypertension
CPT/HCPCS: 36415; 80048; 80061; 83036; 85025

== ENCOUNTER 2025-08-03 07:51 | Outpatient (CLI) | payer MEDICARE, SELFPAY ==
[2025-08-03 08:15] VITALS: PULSE 79; O2SAT 96
[2025-08-03 08:18] VITALS: PULSE 136; O2SAT 91
[2025-08-03 08:30] VITALS: PULSE 90; O2SAT 96
== END 2025-08-03 07:52 | disposition home or self-care (01) ==
LOC: ANHPFT 07:54
PROVIDERS: PCP Internal Medicine; Visit Provider Internal Medicine
DX: Z99.81 Dependence on supplemental oxygen (principal); J44.9 Chronic obstructive pulmonary disease, unspecified
CPT/HCPCS: 94618